=== PATIENT | female | born 1995 | race Caucasian/White ===

== ENCOUNTER 2025-02-21 10:17 | Emergency (ER) | payer BC, SELFPAY ==
[2025-02-21 10:18] VITALS: BP 118/81; PULSE 93; TEMP 37.3; O2SAT 98; BMI 22.0
--- NOTE | 2025-02-21 10:32 | ED.GENADUL1 ---
HPI HPI - General Adult General Chief complaint: Nausea/Vomiting/Diarrhea Stated complaint: VOMITTING DIZZINESS DEHYDRATION Time Seen by Provider: 02/21/25 10:20 Source: patient Mode of arrival: walk-in Limitations: no limitations History of Present Illness HPI narrative: 29-year-old female presents for nausea and vomiting. It began about 2:00 in the morning, about 8 hours ago. She had a little bit of diarrhea. [facility] before. No hematemesis or fever. She feels dehydrated. Related Data Previous Rx's ?Medication ?Instructions ?Recorded ondansetron 4 mg disintegrating 4 mg PO Q6H PRN nausea and 02/21/25 tablet vomiting #20 tabs Allergies Allergy/AdvReac Type Severity Reaction Status Date / Time No Known Drug Allergies Allergy Verified 02/21/25 10:24 Opioid HPI Opioid Management Most Recent Opioid Data: No Data to Display Review of Systems ROS Narrative A ten point review of systems is negative except as noted above. PFSH PFSH Social History Little interest or pleasure in doing things: not at all Feeling down, depressed, or hopeless: not at all Exam Narrative Exam Narrative: Nurses note and vital signs reviewed and patient is not hypoxic. General: The patient appears well and in no apparent distress. Patient is resting comfortably on cart. Skin: Warm, dry, mild pallor noted. There is no rash noted. Head: Normocephalic, atraumatic Eye: Normal conjunctiva, no drainage Ears, Nose, Mouth, and Throat: oral mucosa is moist. Nares patent. Cardiovascular: Regular Rate and Rhythm Respiratory: Patient is in no distress, no accessory muscle use, lungs are clear to auscultation, no wheezing, rales or rhonchi Back: non-tender GI: Soft and nontender Musculoskeletal: The patient has no evidence of calf tenderness, no pitting edema, symmetrical pulses noted bilaterally Neurological: A&O, normal speech Psychiatric: Cooperative Constitutional Vital Signs, click to edit/add: Last Vital Signs Temp 99.1 F 02/21/25 10:18 Pulse 93 H 02/21/25 10:18 Resp 18 02/21/25 10:18 BP 118/81 02/21/25 10:18 Pulse Ox 98 02/21/25 10:18 Course Vital Signs Vital signs: Vital Signs Temperature 99.1 F 02/21/25 10:18 Pulse Rate 93 H 02/21/25 10:18 Respiratory Rate 18 02/21/25 10:18 Blood Pressure 118/81 02/21/25 10:18 Pulse Oximetry 98 02/21/25 10:18 Temperature 99.1 F 02/21/25 10:18 Pulse Rate 93 H 02/21/25 10:18 Respiratory Rate 18 02/21/25 10:18 Blood Pressure 118/81 02/21/25 10:18 Pulse Oximetry 98 02/21/25 10:18 Medical Decision Making MDM Narrative Medical decision making narrative: The patient feels much better after being given IV fluids and Zofran and is tolerating p.o. liquids. She is discharged home with a prescription for Zofran. Treatment diagnosis and follow-up were discussed with the patient. Differential Diagnosis Differential Diagnosis: Dehydration, gastroenteritis, food Lab Data Lab results reviewed: Yes I reviewed the patient's lab results Labs: Lab Results 02/21/25 Range/Units 10:25 WBC 16.9 H (4.0-11.0) 10^3/uL RBC 4.91 (4.20-5.40) 10^6/uL Hgb 15.0 (12.0-16.0) g/dL Hct 44.6 (36.0-48.0) % MCV 90.8 (81.0-99.0) fL MCH 30.5 (26.7-34.0) pg MCHC 33.6 (29.9-35.2) g/dL RDW 12.3 (11.0-15.0) % Plt Count 312 (150-450) 10^3/uL MPV 8.7 L (9.5-13.5) fL Seg Neuts % (Manual) 86.0 H (43.0-75.0) Band Neutrophils % 5.0 (0-5) % Lymphocytes % (Manual) 5.0 L (20.5-60.0) % Monocytes % (Manual) 4.0 (1.7-12.0) % Eosinophils % (Manual) 0.0 L (0.9-7.0) % Basophils % (Manual) 0.0 L (0.2-2.0) % Neutrophils # (Manual) 14.53 H (1.4-6.5) 10^3/uL Band Neutrophils # 0.8 H (0.0-0.3) 10^3/uL Lymphocytes # (Manual) 0.84 L (1.20-3.80) 10^3/uL Monocytes # (Manual) 0.67 (0.30-0.80) 10^3/uL Eosinophils # (Manual) 0.00 (0.00-0.70) 10^3/uL Basophils # (Manual) 0.00 (0.00-0.10) 10^3/uL Sodium 138 (136-145) mmol/L Potassium 4.0 (3.5-5.1) mmol/L Chloride 101 (98-107) mmol/L Carbon Dioxide 25.2 (21.0-32.0) mmol/L Anion Gap 15.8 BUN 20.0 H (7.0-18.0) mg/dL Creatinine 1.29 H (0.55-1.02) mg/dL Est GFR ( Amer) 60 (>=60 mL/min/1.73m^2) Est GFR (Non-Af Amer) 50 L (>=60 mL/min/1.73m^2) BUN/Creatinine Ratio 15.5 Glucose 136 H (74-106) mg/dL Calcium 8.9 (8.5-10.1) mg/dL Serum HCG, Qual Negative (NEGATIVE) Discharge Plan Discharge Chief Complaint: Nausea/Vomiting/Diarrhea Clinical Impression: Nausea & vomiting Patient Disposition: Home, Self-Care Time of Disposition Decision: 11:50 Condition: Good Mode of Transportation: Private Vehicle Prescriptions / Home Meds: New ondansetron 4 mg tablet,disintegrating 4 mg PO Q6H PRN (Reason: nausea and vomiting) Qty: 20 0RF Print Language: Mongolian Instructions: Acute Nausea and Vomiting (ED) Referrals: KENN GOMEZ [Primary Care Provider] - 1 week
[2025-02-21] MEDS: ONDANSETRON PF 4 MG/2 ML VIAL IV (10:39)
[2025-02-21] MEDS: 0.9 % SODIUM CHLORIDE 1,000 ML 1000 ML IV (10:39)
[2025-02-21 10:48] LABS: Hematocrit 44.6 % (36.0-48.0); Mean Corpuscular HGB Conc 33.6 g/dL (29.9-35.2); Mean Corpuscular Hemoglobin 30.5 pg (26.7-34.0); Mean Corpuscular Volume 90.8 fL (81.0-99.0); Mean Platelet Volume 8.7 fL (9.5-13.5); Platelet Count 312 10^3/uL (150-450); Red Blood Count 4.91 10^6/uL (4.20-5.40); Red Cell Distribution Width 12.3 % (11.0-15.0); White Blood Count 16.9 10^3/uL (4.0-11.0)
[2025-02-21 11:00] LABS: Anion Gap 15.8; BUN Creatinine Ratio 15.5; Calcium 8.9 mg/dL (8.5-10.1); Carbon Dioxide 25.2 mmol/L (21.0-32.0); Chloride 101 mmol/L (98-107); Estimated GFR (African America 60 (>=60 mL/min/1.73m^2); Estimated GFR (Non-African Ame 50 (>=60 mL/min/1.73m^2); Glucose 136 mg/dL (74-106); Sodium 138 mmol/L (136-145)
[2025-02-21 11:01] LABS: HCG Qualitative NEGATIVE (NEGATIVE); Internal Control Within Normal Limits
[2025-02-21 11:06] LABS: Band Neutrophils Absolute 0.8 10^3/uL (0.0-0.3); Lymphocytes Absolute Manual 0.84 10^3/uL (1.20-3.80); Monocytes Absolute Manual 0.67 10^3/uL (0.30-0.80); Segmented Neut Absolute Manual 14.53 10^3/uL (1.4-6.5)
== END 2025-02-21 11:58 | disposition home or self-care (01) ==
PROVIDERS: Emergency Provider Emergency Medicine; PCP Family Medicine
DX: R11.2 Nausea with vomiting, unspecified (principal)
CPT/HCPCS: 36415; 80048; 84703; 85007; 85027; 96361; 96374; 99284; J2405

== ENCOUNTER 2025-07-07 09:16 | Outpatient (OUT) | payer BC, SELFPAY ==
--- OUTSIDE RECORDS SUMMARY | 2021-03-29 07:00 | XMS_ITS | Continuity of Care Document ---
Author Organization [facility] Address [address] [place] [address] Phone Care Team Providers Care Elevator Attendant Name Role Phone Jun Moreno Unavailable Unavailable Procedures Procedure Date TB Read TB INTRADERMAL TEST Advance Directives Directive Yes / No Effective Date File Name No Information Encounters Encounter Description Practice Location Reason(s) For Visit Diagnoses Date Provider Providers Copied on Encounter [facility], [address] [place] [address], [id number], tel:[phone] [facility] No Information Maria Luisa Byrnes. [address], [place], [id number], [place]. tel:[phone] [facility], [address], [place], [id number], [place] tel:[phone] [facility] Encounter for screening for respiratory tuberculosis Maria Luisa Byrnes. [address], [place], [id number], [place]. tel:[phone] Family History Family Member Type Diagnosis Age At Onset No Information Payers Payer name Insurance type Covered democrat ID Authoriza tion(s) No Information Social History Type Description Quantity Date Captured Comments Alcohol Use Details Unknown Caffeine Use Details Unknown Tobacco Use Status No Information Smoking Status No Information Sex Female Sexual Orientation Straight or heterosexual Gender Identity Female Chief Complaint And Reason For Visit No Information Reason For Referral Reason For Referral No Information History Of Present Illness Encounter Date Complaint History Of Prese nt Illness No Information Functional Status Date Functional Assessmen t No Information Instructions Date Instruction Additional Infor mation No Information Assessments Type Assessment Date No Information Patient Care Teams Name Effective Dates (start - stop) Status Members No Information
--- OUTSIDE RECORDS SUMMARY | 2025-06-29 14:45 | XMS_ITS | Encounter Summary ---
Author Organization [facility] Address [address] [facility] [place] [address] Care Team Providers Care Physician/Ophthalmologist Name Role Phone Payal, Omar Andrews DO Primary Care Provider [phone] Bernice Interiano REFRIGERATING TECHNICIAN Unavailable [phone] Reason for Visit * Reason Comments Gynecologic Exam Pt had egg retrieval May 16. Denies concerns. Denies bowel/bladder/breast concerns. LMP 05/26/25 menses irregular, usually 34 days apart. Encounter Details Date Type Department Care Team (Late st Contact Info) Description 06/29/2025 2:45 PM EDT Office Visit NASEEMEdgardo CastroLisonya FLANNERY [address] [facility] [address] [place] [phone] Lisset Domingo DO [address] [facility] [address] [place] [address] Encounter for gynecological examination without abnormal finding; Screening for malignant neoplasm of cervix Social History Tobacco Use Types Packs/Day Years Used Date Smoking Tobacco: Never Passive Smoke Exposure: Never Smokeless Tobacco: Never Alcohol Use Standard Drinks/Week Comments Never 0 (1 standard drink = 0.6 oz pure alcohol) Caffeine intake: occasional chocolate , soda Humiliation, Afraid, Rape, and Kick questionnair e Answer Date Recorded Within the last year, have y ou been afraid of your partner or ex-partner? No 12/01/2023 Within the last year, have y ou been humiliated or emotionally abused in other ways by your partner or ex-partner? No Within the last year, have y ou been kicked, hit, slapped, or otherwise physically hurt by your partner or ex-partner? No 12/01/2023 Within the last year, have y ou been raped or forced to have any kind of sexual activity by your partner or ex-partner? No 12/01/2023 Social Connection and Isolat ion Panel [NHANES] Answer Date Recorded In a typical week, how many times do you talk on the phone with family, friends, or neighbors? More than three times a week 12/01/2023 How often do you get togethe r with friends or relatives? Once a week 12/01/2023 How often do you attend chur ch or holiness services? More than 4 times per year 12/01/2023 Do you belong to any clubs o r organizations such as anabaptist groups, unions, fraternal or athletic groups, or school groups? Yes 12/01/2023 How often do you attend meet ings of the clubs or organizations you belong to? More than 4 times per year 12/01/2023 Are you , , di vorced, , never , or living with a partner? 12/01/2023 AUDIT-C Answer Date Recorded Q1: How often do you have a drink containing alc ohol? Monthly or less 12/01/2023 Q2: How many drinks containi ng alcohol do you have on a typical day when you are drinking? 1 or 2 12/01/2023 Q3: How often do you have si x or more drinks on one occasion? Never 12/01/2023 Overall Financial Resource Strain (CARDIA) Answe r Date Recorded How hard is it for you to pa y for the very basics like food, housing, medical care, and heating? Not very hard 12/01/2023 [facility] - Occupational Stress Questionnaire Answer Date Recorded Do you feel stress - tense, restless, nervous, or anxious, or unable to sleep at night because your mind is troubled all the time - these days? Only a little 12/01/2023 Exercise Vital Sign Answer Date Recorde d On average, how many days pe r week do you engage in moderate to strenuous exercise (like a brisk walk)? 3 days 12/01/2023 On average, how many minutes do you engage in exercise at this level? 60 min 12/01/2023 Hunger Vital Sign Answer Date Recorded Within the past 12 months, y ou worried that your food would run out before you got the money to buy more. Never true 12/01/19 24 Within the past 12 months, t he food you bought just didn't last and you didn't have money to get more. Never true 12/01/2023 PRAPARE - Transportation Answer Date Re corded In the past 12 months, has l ack of transportation kept you from medical appointments or from getting medications? No 06/2024 In the past 12 months, has l ack of transportation kept you from meetings, work, or from getting things needed for daily living? No 12/01/2023 Housing Stability Vital Sign Answer Roscoe e Recorded In the last 12 months, was t here a time when you were not able to pay the mortgage or rent on time? No 12/01/2023 In the last 12 months, how many places have you lived? 1 12/01/2023 In the last 12 months, was t here a time when you did not have a steady place to sleep or slept in a custodial (including now)? No 12/01/2023 Comments No Sex and Gender Information Value Date Recorded Sex Assigned at Not on file Legal Sex Female 6:52 PM EDT Gender Identity Female 02/05/2023 6:52 PM EDT Sexual Orientation Not on file documented as of this encounter Last Filed Vital Signs Vital Sign Reading Time Taken Comments Blood Pressure 136/80 06/29/2025 2:49 PM EDT Pulse - - Temperature - - Respiratory Rate - - Oxygen Saturation - - Inhaled Oxygen Concentration - - Weight 63.5 kg (140 lb) 06/29/2025 2:49 PM EDT Height - - Body Mass Index 23.3 12/02/2023 9:58 AM EST documented in this encounter Progress Notes * Lisset Domingo DO - 06/29/2025 2:45 PM EDT Images from the original note were not included. Lisset Domingo D.O. Obstetrics and Gynecology Patient: Susan Boothe : 1995 (29 y.o.) Yearly Wellness Exam Date: 06/29/2025 Reason for Visit - Chief Complaint Patient presents with Gynecologic Exam Pt had egg retrieval May 16. Denies concerns. Denies bowel/bladder/breast concerns. LMP 05/26/25 menses irregular, usually 34 days apart. Visit Vitals BP 136/80 Wt 140 lb LMP 05/26/2025 BMI 23.30 kg/m?? OB Status Having periods Smoking Status Never BSA 1.71 m?? No Known Allergies History of Present Illness, Associated Treatments and Results - OB History Para Term AB Living 0 0 0 0 0 0 SAB IAB Ectopic Multiple Live Births 0 0 0 0 0 Obstetric Comments Pap smear 12/10/22 wnl Review of Systems - General: Chills denies. Allergy/Immunology: Rash Denies. ENT: Denies Difficulty swallowing. Endocrine: Denies Cold intolerance denies. Heat intolerance denied. Respiratory: Denies Chest pain denies. Shortness of breath denies. Breast: Denies Bloody nipple discharge denies. Breast lump denies. Cardiovascular: Denies Chest pain. Gastrointestinal: Abdominal pain denies. Blood in stool denies. Hematology: Easy bruising denies. Prolonged bleeding denies. Women Only: Breast lump denies. Vaginal bleeding between periods is denied. Vaginal discharge/itching denied. Genitourinary: Blood in urine denies. Painful urination denies. Incontinence denies. Skin: Hair changes. Neurologic: Seizures denied. Stroke denies. Psychiatric: Anxiety denies. Depressed mood denies. Medication Documentation Review Audit Reviewed by Staci Darnell MA (Buildings And Grounds Superintendent) on 06/29/25 at 1448 Medication Order Taking? Sig Documenting Provider Last Dose Status Vit w/Kv-Pbtrbmxsc-VM (PNV PO) [id number] Yes Take by mouth Lisset Domingo DO Active Past Medical History: Diagnosis Date Hormone disorder 01/01/2023 Neck mass Neck mass Ovarian cyst 01/01/2023 Polycystic ovary syndrome 01/01/2023 Past Surgical History: Procedure Laterality Date LASIK 11/07/2021 LASIK 11/07/2021 NECK MASS EXCISION 2014 NECK SURGERY 2014 excision submental mass Family History Problem Relation Name Age of Onset Diabetes Mother Jeannette Asthma Mother Jeannette Hypertension Father Tom No Known Problems Sister No Known Problems Brother Diabetes Mother's Sister Breast cancer Father's Sister Maris Cancer Mother's Brother Hickman Cancer Father's Sister Sharmila Diabetes Mother's Brother Armaan Melanoma Neg Hx Physical Exam - General appearance, mentation, extraocular movements, facial strength and movement, hearing, upper and lower extremity strength and tone, sensation to gross testing, coordination, and gait are normalor at baseline unless noted below. General Examination: GENERAL APPEARANCE: alert oriented well developed, well nourished. HEAD: normocephalic atraumatic. EYES: sclera anicteric. EARS: no obvious hearing deficit. SKIN: warm and dry. HEART: regular rate and rhythm. LUNGS: clear to auscultation bilaterally. CHEST: axillary nodes grossly normal. BREASTS: no masses palpable bilaterally, normal nipples bilaterally. ABDOMEN: soft, nontender, nondistended, no masses palpable. BACK: no costovertebral angle tenderness, no obvious scoliosis/kyphosis. FEMALE GENITOURINARY: normal vaginal mucosa, cervix absent of lesions, nontender, uterus AV, mobile, ovaries nonpalpable and nontender. EXTREMITIES: no edema. NEUROLOGIC: alert and oriented. PSYCH: cooperative with exam. Diagnoses and all orders for this visit: Encounter for gynecological examination without abnormal finding Screening for malignant neoplasm of cervix - IGP, RFX APTIMA HPV ASCU Pap, pelvic and breast exam completed. Findings of today's exam discussed with the patient. Continue MSBE. Ca/Vit D recommendations reviewed with the patient. The patient is to contact the office with any changes to her gynecological condition. The patient is to return in 1 year or as needed ICD-10-CM 1. Encounter for gynecological examination without abnormal finding Z01.419 2. Screening for malignant neoplasm of cervix Z12.4 IGP, RFX APTIMA HPV ASCU documented in this encounter Plan of Treatment Upcoming Encounters Date Type Department Care Team (Late st Contact Info) Description 07/25/2026 10:30 AM EDT Office Visit ELAN FLANNERY [address] [place] [phone] Lisset Domingo DO [address] [place] [address] documented as of this encounter Procedures Procedure Name Priority Date/Time Associated Diagnosis Comments IGP, RFX APTIMA HPV ASCU Routine 06/29/2025 12:00 AM EDT Screening for malignant neoplasm of cervix documented in this encounter Results * IGP, RFX APTIMA HPV ASCU (06/29/2025 12:00 AM EDT) Diagnosis: Comment [facility] Comment:NEGATIVE FOR INTRAEP ITHELIAL LESION OR MALIGNANCY. Specimen Adequacy: Comment [facility] Comment: Satisfactory for evaluation. Endocervical and/or squamous metaplastic cells (endocervical component) are present. Clinician Provided ICD10: Comment [facility] Comment:Z12.4 Performed By: Comment [facility] Comment:Michael Jain, Work And Family Life Consultant ([facility]) Cyto Comments . [facility] Note: Comment [facility] Comment: The Pap smear is a screening test designed to aid in the detection of premalignant and malignant conditions of the uterine cervix. It is not a diagnostic procedure and should not be used as the sole means of detecting cervical cancer. Both false-positive and false-negative reports do occur. Test Methodology: Comment [facility] Comment: This liquid based ThinPrep(R) pap test was screened with the use of an image guided system. . Comment [facility] Comment: The HPV DNA reflex criteria were not met with this specimen result therefore, no HPV testing was performed. 06/29/2025 06/30/2025 Narrative [facility] - 07/01/2025 1:07 PM EDT Performed at: 01 - [address] [id number] Tap Puller: Sepideh Varela MD, Phone: [phone] Specimen Comment: [id number] Specimen Comment: No. of containers..01 ThinPrep Vial Lisset Domingo DO LAB BLOOD ORDERABLES Final Result [facility] documented in this encounter Visit Diagnoses Diagnosis Encounter for gynecological examination without abnormal finding Screening for malignant neoplasm of cervix Screening for malignant neoplasm of the cervix documented in this encounter Care Teams Physician/Ophthalmologist Relationship Specialty Start Date End Date Omar Moe DO [address] [place] [address] PCP - General Family Medicine 04/01/23 Bernice Interiano NP [address] [place] [address] PCP - [place] [employer] 02/22/25 documented as of this encounter
--- OUTSIDE RECORDS SUMMARY | 2025-07-07 09:21 | XMS_ITS | Clinical Summary ---
Author Organization [facility] Address [address] [place] [address] Care Team Providers Care Weight Analyst Name Role Phone PayalOmar antunez Darryl PETERSON Primary Care Provider [phone] Bernice Interiano COATER HELPER Unavailable [phone] Allergies No known active allergies Medications Vit w/Jk-Ecjcdmzqu-I A (PNV PO) Take by mouth Active Encounters Date Type Department Care Team Description 06/29/2025 2:45 PM EDT Office Visit NOMEdgardo FLANNERY [address] [place] [phone] Lisset Domingo DO Encounter for gynecological examination without abnormal finding; Screening for malignant neoplasm of cervix 06/29/2025 Bamboo flowsheet NOMEdgardo AVILAN [address] [place] [phone] Lisset Domingo DO 06/29/2025 Travel from Last 3 Months Family History Medical History Relation Name Comments No Known Problems Brother Hypertension Father Tom Breast cancer Father's Sister 1 Maris Cancer Father's Sister 2 Sharmila Asthma Mother Jeannette Diabetes Mother Jeannette Cancer Mother's Brother 1 Hickman Diabetes Mother's Brother 2 Armaan Diabetes Mother's Sister No Known Problems Sister Melanoma Neg Hx Relation Name Status Comments Brother 1 brother Father Tom Alive Father's Sister 1 Maris Father's Sister 2 Sharmila Mother Jeannette Alive Mother's Brother 1 Hickman Mother's Brother 2 Armaan Mother's Sister Sister 1 sister Social History Tobacco Use Types Packs/Day Years Used Date Smoking Tobacco: Never Passive Smoke Exposure: Never Smokeless Tobacco: Never Tobacco Cessation:Counseling Given: Yes Alcohol Use Standard Drinks/Week Comments Never 0 [...] week 12/01/2023 How often do you attend [facility] or mandaen services? More than 4 times per year 12/01/2023 Do you belong to any clubs o r organizations such as religion groups, unions, fraternal or athletic groups, or [...] care, and heating? Not very hard 12/01/2023 [facility] - Occupational Stress Questionnaire Answer Date [...] place to sleep or slept in a residential (including now)? No 12/01/2023 Comments No Sex and Gender Information Value Date Recorded Sex Assigned at Not on file Legal Sex Female 6:52 PM EDT Gender Identity Female 02/05/2023 6:52 PM EDT Sexual Orientation Not on file Last Filed Vital Signs Vital Sign Reading Time Taken Comments Blood Pressure 136/80 06/29/2025 2:49 PM EDT Pulse 78 11/26/2024 10:15 AM EST Temperature 36.9 C (98.4 F) 11/26/2024 10:15 AM EST Respiratory Rate - - Oxygen Saturation 99% 11/26/2024 10:15 AM EST Inhaled Oxygen Concentration - - Weight 63.5 kg (140 lb) 06/29/2025 2:49 PM EDT Height 165.1 cm (5' 5 ) 12/02/2023 9:58 AM EST Body Mass Index 23.3 12/02/2023 9:58 AM EST Plan of Treatment Upcoming Encounters Date Type Department Care Team (Late st Contact Info) Description 07/25/2026 10:30 AM EDT Office Visit ELAN FLANNERY [address] [place] [address] Lisset Domingo DO [address] [place] [address] Health Maintenance Due Date Last Done Comments Influenza Vaccine (#1) 2025 4, 08/12/2023, 08/16/2022, Additional history exists Procedures Procedure Name Priority Date/Time Associated Diagnosis Comments IGP, RFX APTIMA HPV ASCU Routine 06/29/2025 12:00 AM EDT Screening for malignant neoplasm of cervix from Last 3 Months Results * IGP, RFX APTIMA HPV ASCU (06/29/2025 12:00 AM EDT) Diagnosis: Comment [facility] Comment:NEGATIVE FOR INTRAEP ITHELIAL LESION OR MALIGNANCY. Specimen Adequacy: Comment [facility] Comment: Satisfactory for evaluation. Endocervical and/or squamous metaplastic cells (endocervical component) are present. Clinician Provided ICD10: Comment [facility] Comment:Z12.4 Performed By: Comment [facility] Comment:Michael Jain, Chain Mender ([facility]) Cyto Comments . [facility] Note: Comment [...] - 07/01/2025 1:07 PM EDT Performed at: - [facility] [address] [place] [id number] Message And Delivery Service Pricer: Sepideh Varela MD, Phone: [phone] Specimen Comment: [id number] Specimen Comment: No. of containers..01 ThinPrep Vial Lisset Domingo DO LAB BLOOD ORDERABLES Final Result [facility] from Last 3 Months Insurance BC[employer] Care Teams Weight Analyst Relationship Specialty Start Date End Date Omar Moe DO [address] [place] [address] PCP - General Family Medicine 04/01/23 Bernice Interiano NP [address] [place] [address] PCP - [place] [employer] 02/22/25
--- OUTSIDE RECORDS SUMMARY | 2025-07-07 09:21 | XMS_ITS | Encounter Summary ---
Author Organization [facility] Address [address] [place] [address] Care Team Providers Care Media/Instructional Designer Name Role Phone Omar Moe DO Primary Care Provider [phone] Bernice Interiano ELECTROMECHANISMS DESIGN DRAFTER Unavailable [phone] Encounter Details Date Type Department Care Team (Late st Contact Info) Description 02/21/2025 Abstract [facility] [address] [place] [address] Omar Moe DO [address] [place] [address] Social History Tobacco Use Types Packs/Day Years [...] often do you attend chur ch or jewish services? More than 4 times per year 12/01/2023 Do you belong to any clubs o r organizations such as denominational groups, unions, fraternal or athletic groups, or [...] care, and heating? Not very hard 12/01/2023 [facility] - Occupational Stress [...] place to sleep or slept in a jail (including now)? No 12/01/2023 Comments No Sex and Gender Information Value Date Recorded Sex Assigned at Not on file Legal Sex Female 6:52 PM EDT Gender Identity Female 02/05/2023 6:52 PM EDT Sexual Orientation Not on file documented as of this encounter Plan of Treatment Upcoming Encounters Date Type Department Care Team (Late st Contact Info) Description 07/25/2026 10:30 AM EDT Office Visit [facility] [address] [place] [address] Lisset Domingo DO [address] [place] [address] documented as of this encounter Visit Diagnoses Not on filedocumented in this encounter Care Teams Media/Instructional Designer Relationship Specialty Start Date End Date Omar Moe DO [address] [place] [id number] PCP - General Family Medicine 04/01/23 Bernice Interiano NP [address] [place] [id number] PCP - [place] [employer] 02/22/25 documented as of this encounter
--- OUTSIDE RECORDS SUMMARY | 2025-07-07 09:21 | XMS_ITS | Encounter Summary ---
Author Organization [facility] Address [address] [facility] [place] [address] Care Team Providers Care Medical Office Administrator Name Role Phone Omar Moe Primary Care Provider [phone] Bernice Interiano ORACLE DATABASE ARCHITECT Unavailable [phone] Encounter Details Date Type Department Care Team (Late st Contact Info) Description 05/01/2023 [facility] [address] [facility] [address] [place] [address] Naseem Gomez MD [address] [facility] [address] [place] [address] Social History Tobacco Use Types Packs/Day Years Used Date Smoking Tobacco: Never Smokeless Tobacco: Never Alcohol Use Standard Drinks/Week Comments Never 0 (1 standard drink = 0.6 oz pure alcohol) Caffeine intake: occasional chocolate , soda Comments Unknown Sex and Gender Information Value Date Recorded [...] [facility] [address] [place] [address] Lisset Domingo DO [address] [place] [address] documented as of this encounter Visit Diagnoses Not on filedocumented in this encounter Care Teams Medical Office Administrator Relationship Specialty Start Date End Date Omar Moe DO [address] [place] [address] PCP - General Family Medicine 04/01/23 Bernice Interiano NP [address] [place] [address] PCP - Madhavi Crum 02/22/25 documented as of this encounter
--- OUTSIDE RECORDS SUMMARY | 2025-07-07 09:21 | XMS_ITS | Encounter Summary ---
Author Organization [facility] Address [address] [place] [address] Care Team Providers Care Hydroelectric Plant Mechanical Engineer Name Role Phone Omar Moe DO Primary Care Provider [phone] Bernice Interiano GASOLINE PUMP MECHANIC Unavailable [phone] Encounter Details Date Type Department Care Team (Latest Contact Info) Description 06/29/2025 Travel Social History Tobacco Use Types Packs/Day Years [...] week 12/01/2023 How often do you attend [facility] or taoist services? More than 4 times per year 12/01/2023 Do you belong to any clubs o r organizations such as tenriism groups, unions, fraternal or athletic groups, or [...] care, and heating? Not very hard 12/01/2023 [facility] - [...] [facility] [address] [place] [address] Lisset Domingo DO [address] [place] [address] documented as of this encounter Visit Diagnoses Not on filedocumented in this encounter Care Teams Hydroelectric Plant Mechanical Engineer Relationship Specialty Start Date End Date Omar Moe DO [address] [place] [address] PCP - General Family Medicine 04/01/23 Bernice Interiano NP [address] [place] [address] PCP - Madhavi Commercial 02/22/25 documented as of this encounter
--- OUTSIDE RECORDS SUMMARY | 2025-07-07 09:21 | XMS_ITS | Clinical Summary ---
Author Organization [facility] Address [address] [place] [address], [address] [place] [address] Care Team Providers Care Tool And Equipment Rental Clerk Name Role Phone Unavailable Primary Care Provider Unavailabl e Social History Tobacco Use Types Packs/Day Years Used Date Smoking Tobacco: Never Assessed Comments Unknown Sex and Gender Information Value Date Recorded Sex Assigned at Not on file Legal Sex Female 12:47 PM EDT Gender Identity Not on file Sexual Orientation Not on file Plan of Treatment Health Maintenance Due Date Last Done Comments DTaP/Tdap/Td vaccine (1 - Tdap) 2016 COVID-19 Vaccine (2023-2 5 season) 2024 Flu vaccine (#1) 06/24/2025 Polio vaccine Aged Out No longer elig ible based on patient's age to complete this topic
--- OUTSIDE RECORDS SUMMARY | 2025-07-07 09:21 | XMS_ITS | Encounter Summary ---
Author Organization [facility] Address [address] [facility] [place] [address] Care Team Providers Care Deputy Director Of Finance Name Role Phone Omar Moe DO Primary Care Provider [phone] Bernice Interiano NP Unavailable [phone] Encounter Details Date Type Department Care Team (Late st Contact Info) Description 12/26/2023 External Result Encounter [facility] External Department Unsolicited Naseem Gomez MD [address] [place] [address] Social History Tobacco Use Types Packs/Day Years [...] often do you attend chur ch or tenriism services? More than 4 times per year 12/01/2023 Do you belong to any clubs o r organizations such as buddhist groups, unions, fraternal or athletic groups, or [...] care, and heating? Not very hard 12/01/2023 [facility] - Occupational [...] place to sleep or slept in a fci (including now)? No 12/01/2023 Comments No Sex [...] [facility] [address] [place] [address] Lisset Domingo DO [address] [place] [address] documented as of this encounter Procedures Procedure Name Priority Date/Time Associated Diagnosis Comments XR HYSTEROSALPINGOGRAM 1:14 PM EST documented in this encounter Results * XR hysterosalpingogram (12/26/2023 1:14 PM EST) Anatomical Region Laterality Modality Uterus Radiographic Sumaya ging 12/26/2023 1:14 PM EST Narrative 12/26/2023 1:19 PM EST [facility] [place] [address] [place] [id number] Fluoroscopy Report Signed Patient: Susan Boothe MR#: [id number] 3 : 1995 Acct:[id number] Age/Sex: 28 / F ADM Date: 12/26/23 Loc: XD Room: Type: [facility] Attending Dr: Naseem Gomez MD Copies to: YANIV Pollard Ordering Provider: AYNIV Pollard Date of Service: 12/26/23 FL/FL hysterosalpingography: ANOVULATION, IRREGULAR MENSES Hysterosalpingogram. Reason for exam: Evaluate for tubal patency. Findings: 4 images were obtained intraoperatively. Examination was performed by the ESCROW AGENT service. No radiologist was present for procedure. Normal contour of the uterus. No definite pooling of contrast is seen within the peritoneum to suggest spillage. Cumulative Air Kerma in mGy: 11.238 mGy FL/FL hysterosalpingography Impression: HSG performed by the ESCROW AGENT service. Impression dictated by: Morgan Delgado Jr., D.[facility]12/26/2023 1:16 PM Dictation Location: [place] [address] Transcribed By: [facility] 12/26/23 1316 Dictated By: Morgan Delgado Jr, DO 12/26/23 1314 Signed By: <Electronically signed by Morgan Delgado Jr, DO in OV> 12/26/23 1316 Procedure Note Radiology, Radiologist, - 12/30/2023 [facility] [place] [address] [place] [address] Fluoroscopy Report Signed Patient: Susan Boothe LMR#: [id number] 3 : 1995Acct:[id number] Age/Sex: 28 / FADM Date: 12/26/23 Loc: XD Room:Type: [facility] Attending Dr: Naseem Gomez MD Copies to: YANIV Pollard Ordering Provider: YANIV Pollard Date of Service: 12/26/23 FL/FL hysterosalpingography: ANOVULATION,IRREGULAR MENSES Hysterosalpingogram. Reason for exam: Evaluate for tubal patency. Findings: 4 images were obtained intraoperatively. Examination was performed by theOB/PASSENGER SERVICE MANAGER service. No radiologist was present for procedure. Normal contour of the uterus. Nodefinite pooling of contrast is seen within the peritoneum to suggest spillage. Cumulative Air Kerma in mGy: 11.238 mGy FL/FL hysterosalpingography Impression: HSG performed by the ESCROW AGENT service. Impression dictated by: Morgan Delgado Jr., D.O.12/26/2023 1:16 PM Dictation Location: [place] [address] Transcribed By: [facility] 12/26/23 1316 Dictated By: Morgan Delgado Jr, DO 12/26/23 1314 Signed By: <Electronically signed by Morgan Delgado Jr, DO inOV> 12/26/23 1316 us Naseem Gomez MD IMG XR PROCEDURES Edited Resul t - Final documented in this encounter Visit Diagnoses Not on filedocumented in this encounter Care Teams Deputy Director Of Finance Relationship Specialty Start Date End Date Omar Moe DO [address] [place] [address] PCP - General Family Medicine 04/01/23 Bernice Interiano NP [address] [place] [address] PCP - Madhavi Crum 02/22/25 documented as of this encounter
--- OUTSIDE RECORDS SUMMARY | 2025-07-07 09:21 | XMS_ITS | Encounter Summary ---
Author Organization [facility] Address [address] [place] [address] Care Team Providers Care Slinger Sequins Name Role Phone Payal Omar Andrews DO Primary Care Provider [phone] Bernice Interiano PAPER CONSERVATOR Unavailable [phone] Encounter Details Date Type Department Care Team (Late st Contact Info) Description 06/29/2025 Bamboo flowsheet [facility] [place] [facility] [address] [place] [address] Lisset Domingo DO [address] [place] [address] Social History Tobacco Use Types Packs/Day Years [...] any clubs o r organizations such as latter-day groups, unions, fraternal or athletic groups, or [...] care, and heating? Not very hard 12/01/2023 [facility] - Occupational [...] place to sleep or slept in a usp (including now)? No 12/01/2023 Comments No Sex [...] 07/25/2026 10:30 AM EDT Office Visit [facility] [place] [facility] [address] [place] [address] Lisset Domingo DO [address] [place] [address] documented as of this encounter Visit Diagnoses Not on filedocumented in this encounter Care Teams Slinger Sequins Relationship Specialty Start Date End Date Omar Moe DO [address] [place] [id number] PCP - General Family Medicine 04/01/23 Bernice Interiano NP [address] [place] [id number] PCP - Madhavi Commercial 02/22/25 documented as of this encounter
--- OUTSIDE RECORDS SUMMARY | 2025-07-07 09:23 | XMS_ITS | CCD ---
Author Organization [facility] Care Team Providers Care Agents' Records Clerk Name Role Phone Unavailable Primary Care Provider UnavailEVIN Haddad Referring Unavailable LILIAN SHELL Referring Unavailable MONALISA LOVE Referring Unavailable DO Omar Moe Primary Care Provider [phone] MD Naseem Gomez Attending Provider Naseem Gomez Admitting Unavailable Naseem Gomez Attending Unavailable Omar Moe Primary Care Unavailable Omar Moe DO Primary Care Provider [phone] Zenaida Interiano NP Unavailable LISSET DOMINGO Attending Unavailable ZENAIDA INTERIANO Attending Unavailable Medications Current Medications Medication Drug Class(es) Dates Sig (Normalized) Sig (Original) nitrofurantoin, macrocrystals 25 mg / nitrofurantoin, monohydrate 75 mg oral capsule (2 sources) Nitrofuran Antibacterial Start: 11-26-2024 End: 12-03-2024 take 1 capsule by mouth once nitrofurantoin, macrocrystal-mon ohydrate, (Macrobid) 100 MG capsule Indications: Acute cystitis without hematuria Take 1 capsule (100 mg) by mouth every 12 (twelve) hours for 7 days 14 capsule 11/26/2024 12/03/2024 Active Vit w/Hv-Nnulujlut-CF (PNV PO) (2 sources) Vit w/Vf-Mktkfrfnk-E A (PNV PO) Take by mouth Active Problems Active Problems Problem Classification Problem Date Documented Da te Episodic/Chronic Female infertility (1 source) Female infertility associated with anovulation; Translations: [Female infertility associated with anovulation] Onset: 12-26-2023 Chronic Other screening for suspected conditions (not mental disorders or infectious disease) (2 sources) Cancer cervix screening status; Translations: [Encounter for screening for malignant neoplasm of cervix] 06-23-2025 Episodic Urinary tract infections (2 sources) Acute cystitis; Translations: [Acute cystitis without hematuria] 11-26-2024 Episodic Past or Other Problems Problem Classification Problem Date Documented Da te Episodic/Chronic Administrative/social admission (2 sources) Encounter for pre-employment examination; Translations: [Encounter for pre-employment examination] Onset: 10-28-2022 Episodic Results Test Name Value Interpretation Reference Range Facility No Panel Informationon 11-27 ACINETOBACTER BAUMANII 0 [facility] ACINETOBACTER BAUMANII Not detected [facility] CRYSTAL ALBICANS, PARAPSILOSIS, TROPICALIS 0 [facility] CRYSTAL ALBICANS, PARAPSILOSIS, TROPICALIS Not detected [facility] CRYSTAL GLABRATA 0 [facility] CRYSTAL GLABRATA Not detected [facility] CRYSTAL KRUSEI 0 [facility] CRYSTAL KRUSEI Not detected [facility] CITROBACTER FREUNDII 0 [facility] CITROBACTER FREUNDII Not detected [facility] ENTEROBACTER AEROGENES, CLOACAE 0 [facility] ENTEROBACTER AEROGENES, CLOACAE Not detected [facility] ENTEROCOCCUS FAECALIS, FAECIUM 0 [facility] ENTEROCOCCUS FAECALIS, FAECIUM Not detected [facility] ESCHERICHIA COLI 0 [facility] ESCHERICHIA COLI Not detected [facility] KLEBSIELLA PNEUMONIAE, OXYTOCA 0 [facility] KLEBSIELLA PNEUMONIAE, OXYTOCA Not detected [facility] MORGANELLA MORGANII 0 [facility] MORGANELLA MORGANII Not detected [facility] PROTEUS MIRABILIS, VULGARIS 0 [facility] PROTEUS MIRABILIS, VULGARIS Not detected [facility] PSEUDOMONAS AERUGINOSA 0 [facility] PSEUDOMONAS AERUGINOSA Not detected [facility] SERRATIA MARCESCENS 0 [facility] SERRATIA MARCESCENS Not detected [facility] STAPHYLOCOCCUS AUREUS 0 [facility] STAPHYLOCOCCUS AUREUS Not detected [facility] STAPHYLOCOCCUS EPIDERMIDIS, HAEMOLYTICUS, LUGDUNENSIS, SAPROPHYTICUS (URINA 0 [facility] STAPHYLOCOCCUS EPIDERMIDIS, HAEMOLYTICUS, LUGDUNENSIS, SAPROPHYTICUS (URINA Not detected [facility] STREPTOCOCCUS AGALACTIAE (GROUP B STREP) 0 [facility] STREPTOCOCCUS AGALACTIAE (GROUP B STREP) Not detected [facility] STREPTOCOCCUS PYOGENES (GROUP A STREP) 0 [facility] STREPTOCOCCUS PYOGENES (GROUP A STREP) Not detected [facility] [place] hysterosalpingographyon 0 12-26-2023 [place] hysterosalpingography [facility] [place] [address] Fluoroscopy Report Signed Patient: Susan Boothe MR#: [id number] 3 : 1995 Acct:[id number] Age/Sex: 28 / F ADM Date: 12/26/23 Loc: XD Room: Type: [facility] Attending Dr: Naseem Gomez MD Copies to: Naseem Gomez MD-[facility] Ordering Provider: YANIV Pollard Date of Service: 12/26/23 [place] hysterosalpingography: ANOVULATION, IRREGULAR MENSES Hysterosalpingogram. Reason for exam: Evaluate for tubal patency. Findings: 4 images were obtained intraoperatively. Examination was performed by the RADIOSONDE SPECIALIST service. No radiologist was present for procedure. Normal contour of the uterus. No definite pooling of contrast is seen within the peritoneum to suggest spillage. Cumulative Air Kerma in mGy: 11.238 mGy [place] hysterosalpingography Impression: HSG performed by the RADIOSONDE SPECIALIST service. Impression dictated by: Morgan Delgado Jr., MichaelOMeagan12/26/2023 1:16 PM Dictation Location: [place] [address] Transcribed By: [facility] 12/26/23 1316 Dictated By: Morgan Delgado Jr, DO 12/26/23 1314 Signed By: 12/26/23 1316 Normal [facility] Hep B Surf Abon 01-25-2023 Hep B Surf Ab 500.90 mIU/mL High <10 [facility] Comment on above: Result Comment: REFERENCE RANGE: <10.0 NON-REACTIVE/NOT IMMUNE >=10.0 REACTIVE/IMMUNE The presence of Anti-HBs usually indicates recovery from acute or chronic HBV infection or acquired immunity from HBV vaccination. Positive results (quantitative levels of equal to or greater than 10.0 mIU/mL) indicate an adequate immunity from previous infection, vaccination or immune globulin adminstration. Anti-HBc would help define positivity due to Hepatitis B infection. Performed By: #### A HBS #### [address] [address] Wet Machine Tender: Kvng Casanova MD Hep B Surf Abon 11-20-2022 Hep B Surf Ab <3.50 Normal <10 [facility] Comment on above: Result Comment: REFERENCE RANGE: <10.0 NON-REACTIVE/NOT IMMUNE >=10.0 REACTIVE/IMMUNE Performed By: #### A HBS #### [address] [place] [address] Wet Machine Tender: Kvng Casanova MD Hepatitis B Surface Antibody on 11-19-2022 HBV surface Ab (S) [Titer] <3.50 NINF [facility] Comment on above: REFERENCE RANGE: <10.0 NON-REACTIVE/NOT IMMUNE >=10.0 REACTIVE/IMMUNE [facility] VZ Immunityon 10-30-2022 VZ Immunity 2.64 Normal >1.09 [facility] Comment on above: Result Comment: Interpretation: IMMUNE Reference Range: <0.91 Not Immune 0.91-1.09 Equivocal >1.09 Immune Performed By: #### V ZI #### [facility] [place] [address] Wet Machine Tender: Kvng Casanova MD Vital Signs Date Time Vital Sign Value Performing Clinician Lázaro barton 06-29-2025 14:49-0400 Body mass index (BMI) [Ratio] 23.3 kg/m2 LissetMD Insider DO Work Phone: [facility] 06-29-2025 14:49-0400 Body weight 63.5 kg LissetMD Insider DO Work Phone: [facility] 06-29-2025 14:49-0400 Diastolic blood pressure 80 mm[Hg] Lisset Rinkes DO Work Phone: [facility] 06-29-2025 14:49-0400 Systolic blood pressure 136 mm[Hg] Lisset Rinkes DO Work Phone: [facility] 11-26-2024 10:15-0500 Body mass index (BMI) [Ratio] 22.47 kg/m2 Zenaida Interiano SCOOTER MECHANIC Work Phone: [facility] 11-26-2024 10:15-0500 Body temperature 98.4 [degF] Zenaida Interiano SCOOTER MECHANIC Work Phone: [facility] 11-26-2024 10:15-0500 Body weight 61.24 kg Zenaida Interiano SCOOTER MECHANIC Work Phone: [facility] 11-26-2024 10:15-0500 Diastolic blood pressure 70 mm[Hg] Zenaida Interiano SCOOTER MECHANIC Work Phone: [facility] 11-26-2024 10:15-0500 Heart rate 78 /min Zenaida Interiano SCOOTER MECHANIC Work Phone: [facility] 11-26-2024 10:15-0500 SaO2% (BldA) [Mass fraction] 99 % Zenaida Interiano SCOOTER MECHANIC Work Phone: [facility] 11-26-2024 10:15-0500 Systolic blood pressure 110 mm[Hg] Zenaida Interiano SCOOTER MECHANIC Work Phone: [facility] Healthcare Encounters Encounter Date Encounter Type Care Provider Facility Start: 06-29-2025 End: 06-29-2025 Patient encounter status Lisset Antonia Rinkes DO Work Phone: [facility] Start: 06-29-2025 End: 06-29-2025 Periodic preventive med est patient 18-39 yrs Lisset E Rinkes DO Work Phone: [facility] [place] Comment on above: Encounter for gyneco logical examination without abnormal finding; Screening for malignant neoplasm of cervix Start: 06-29-2025 End: 06-29-2025 ambulatory LISSET E RINKES Not Available Start: 06-29-2025 End: 06-29-2025 Bamboo flowsheet Lisset E Rinkes DO Work Phone: [facility] [place] Start: 06-29-2025 End: 06-29-2025 Bamboo flowsheet Lisset E Rinkes DO Work Phone: [facility] [place] Start: 12-27-2024 End: 12-28-2024 Telephone encounter Lisset E Rinkes DO Work Phone: [facility] Start: 11-26-2024 End: 11-26-2024 Office outpatient visit 25 minutes Zenaida Interiano SCOOTER MECHANIC Work Phone: [facility] Comment on above: Acute cystitis witho ut hematuria (Primary Dx) Start: 11-26-2024 End: 11-26-2024 ambulatory ZENAIDA INTERIANO Not Available Start: 09-30-2024 End: 12-07-2024 Telephone encounter Lisset Domingo DO Work Phone: [facility] Comment on above: Appointment Request (Switch from PPJ to KER ) Start: 12-26-2023 End: 12-26-2023 Admission to same day surgery center DO Omar Moe Work Phone: [facility] Work Phone: Start: 12-26-2023 End: 12-26-2023 ambulatory DO Omar Moe Work Phone: [facility] Work Phone: Start: 01-24-2023 End: 01-25-2023 ambulatory MONALISA LOVE [facility] Start: 01-24-2023 End: 01-24-2023 [facility] Start: 11-19-2022 End: 11-20-2022 ambulatory LILIAN SHELL Pallavi [facility] Start: 11-19-2022 End: 11-19-2022 [facility] Start: 10-28-2022 End: 10-29-2022 ambulatory [facility] Procedures Date Procedure Procedure Detail Performing Clinician Start: 11-26-2024 URINARY TRACT INFECT ION (HTRX) Zenaida Interiano SCOOTER MECHANIC Work Phone: Start: 11-19-2022 Hepatitis b surf ant ibody hbsab Lilian hSell REVIEW RN - PATIENT NAVIGATOR Work Phone: Plan of Treatment Date Care Activity Detail Author Start: 07-25-2025 Influenza vaccination Influenza Vacc ine (#1) [facility] Start: 06-29-2025 End: 06-29-2025 Patient encounter procedure 06/29/2025 2:45 PM EDT Office Visit ELAN AVILAN [address] [place] [id number] Lisset Domingo, DO [address] [place] [address] Encounter for gynecological examination without abnormal finding; Screening for malignant neoplasm of cervix [facility] Comment on above: Encounter for gyneco logical examination without abnormal finding; Screening for malignant neoplasm of cervix Start: 01-05-2025 End: 01-05-2025 Patient encounter procedure 01/05/2025 10:30 AM EST Office Visit [facility]AN [facility]ST[facility] [address] [place] [id number] Lisset Domingo, DO [address] [place] [address] [facility] Start: 06-24-2022 Influenza vaccination Flu vaccine (# 1) [facility] Start: 2016 DTaP/Tdap/Td vaccine (1 - Tdap) DTaP/Tdap/Td vaccine (1 - Tdap) [facility] Start: 03-09-1998 COVID-19 Vaccine (#1) COVID-19 Vacci ne (#1) [facility] End: 01-24-2023 Hepatitis B Surface Antibody [facility] Work Phone: Comment on above: Once for 1 Occurrenc es starting 01/24/2023 until 01/24/2023 IGP, RFX APTIMA HPV ASCU IGP, RF X APTIMA HPV ASCU Lab Routine Screening for malignant neoplasm of cervix Ordered: 06/29/2025 [facility] [employer] Work Phone: Comment on above: Ordered: 06/29/2025 VAGINITIS (HTRX) VAGINITIS (HTRX ) Lab Routine Acute cystitis without hematuria Ordered: 11/26/2024 [facility] [employer] Work Phone: Comment on above: Ordered: 11/26/2024 Immunizations Immunization Date Immunization Notes Care Provider Fa james 08-25-2024 influenza virus vacc ine, unspecified formulation Lisset Domingo DO Work Phone: [facility] Payers Date Payer Category Payer Unknown [id number] 2024 [facility] [id number] 2024 Unknown [id number] 2023 Self-pay [id number] 2023 Managed Care HMO (unspecified) [employer] [id number] 2020 Unknown [id number] 1995 Unknown [id number] 1995 Unknown [id number] 1995 Unknown [id number] Unknown [facility] [id number] Unknown [place] [id number] Unknown [id number] Social History Date Type Detail Facility [facility] [employer] Phone: Start: 1995 Sex Assigned At Not on file [facility] [employer] Phone: Start: 1995 Sex Assigned At Female F [facility] Start: 12-02-2023 [facility] Never smoked tobacco [facility] Start: 12-02-2023 Tobacco use and exposure Smoke less tobacco non-user [facility] Start: 12-02-2023 End: 06-29-2025 Alcoholic beverage intake Lifetime non-drinker (finding) [facility] Start: 12-01-2023 End: 04-21-2025 History of Social function [facility] Start: 12-01-2023 End: 04-21-2025 Humiliation, Afraid, Rape, and Kick questionnaire [HARK] [facility] Within the last year , have you been afraid of your partner or ex-partner? No [facility] Do you belong to any clubs or organizations such as gnosticist groups, unions, fraternal or athletic groups, or school groups? Yes [facility] Are you now , , , , never or living with a partner? [facility] How often to you hav e a drink containing alcohol? Monthly or less [facility] How many standard dr inks containing alcohol do you have on a typical day? 1 or 2 [facility] How often do you hav e 6 or more drinks on 1 occasion? Never [facility] How hard is it for y ou to pay for the very basics like food, housing, medical care, and heating Not very hard [facility] Do you feel stress - tense, restless, nervous, or anxious, or unable to sleep at night because your mind is troubled all the time - these days [OSQ] Only a little [facility] (I/We) worried wheth er (my/our) food would run out before (I/we) got money to buy more. Never true [facility] In the past 12 month s, has lack of transportation kept you from medical appointments or from getting medications? No [facility] Start: 04-30-2023 Alcohol Comment Caffeine intak e: occasional chocolate , soda [facility] Start: 02-05-2023 Gender identity Identifies as female gender (finding) [facility] NEGATED: Highlighted rowStart: RIVASF History of tobacco use Passive smoker [facility] Clinical Notes 09-30-2024 to 06-29-2025 Lisset Domingo, - 06/29/2025 2:45 PM EDTTelephone Encounter - Staci Darnell, [place] - 12/28/2024 7:36 AM ESTTelephone Encounter - Staci [place], [place] - 12/28/2024 7:36 AM EST Note Date & Type Note Facility 06-29-2025 History of Presen t illness Narrative Images from the original note were not [...] Wt 140 lb LMP 05/26/2025 BMI 23.30 kg/m OB Status Having periods Smoking Status Never BSA 1.71 m No Known Allergies History of Present Illness, [...] Review Audit Reviewed by Staci Darnell MA (Assistant Manager/Embalmer) on 06/29/25 at 1448 Medication Order Taking? Sig Documenting Provider Last Dose Status Vit w/Fd-Atjevhybh-BP (PNV PO) [id number] Yes Take by mouth Lisset Domingo, Active Past Medical History: Diagnosis Date Hormone disorder 01/01/2023 Neck mass Neck mass Ovarian cyst 01/01/2023 Polycystic ovary syndrome 01/01/2023 Past Surgical History: Procedure Laterality Date LASIK 11/07/2021 LASIK 11/07/2021 NECK MASS EXCISION 2013 NECK SURGERY 2014 excision submental mass Family [...] to gross testing, coordination, and gait are normal or at baseline unless noted below. General Examination: [...] APTIMA HPV ASCU documented in this encounter [facility] 12-28-2024 Telephone encounter Note Can do in sick visit spot for yearly [facility] 12-28-2024 Miscellaneous Notes Can do in sick visit spot for yearly Patient has an apt on 01/05/25 to discuss fertility. The patient was scheduled as a problem visit so it is doubled and she is on her period. Where would the next available spot be for a yearly with ? I don't see anything until May unless you would want her to be se a certain day before? documented in this encounter [facility] 12-27-2024 Telephone encounter Note Patient has an apt on 01/05/25 to discuss fertility. The patient was scheduled as a problem visit so it is doubled and she is on her period. Where would the next available spot be for a yearly with ? I don't see anything until May unless you would want her to be se a certain day before? [facility] 11-26-2024 History of Presen t illness Narrative Images from the original note were not included. [address] , [address] [facility] [place], [address] P: [phone] F: [phone] HPI Historian of HPI: patient Susan Boothe is a 29 y.o. female who presents today to the Urgent Care with the following complaints and denials which have been present for 5 day(s) C/O Denies Symptom Comments [x] [] Dysuria [] [x] hematuria [x] [] Urinary frequency [] [x] Urinary incontinence [] [x] Urinary urgency [x] [] Genital itching [] [x] Genital discharge [] [x] Back pain [] [x] Abd pain Additional Comments: Pt denies OTC meds at this time, is taking Motrin. Pt had a low grade temp on New Years. Pt states I have swollen lymphoids in my groin . Pt denies current /. IH Testing: An In-House UA has been obtained and is positive for trace amount of LEUKS only. ROS A complete system ROS was performed and negative aside from the pertinent positives noted in the HPI and PE. PHYSICAL EXAM Examination General Examination: General examination: alert, oriented, normal affect, well-appearing, in no acute distress, well developed, well nourished. Head: normocephalic, atraumatic Eyes: sclera non-icteric Skin: normal Heart: no murmurs, regular rate and rhythm, S1, S2 normal Lungs: clear to auscultation bilaterally, good air movement, no wheezes, rales, rhonchi Abdomen: Suprapubic tenderness, no hepatosplenomegaly, no masses palpable. Musculoskeletal: FROM Extremities: no edema, no cyanosis Neurologic: nonfocal Psych: alert, oriented, cognitive function intact, cooperative with exam. TREATMENT PLAN 1. Acute cystitis without hematuria (Primary) Diagnosis and treatment discussed. Rest and push fluids. Medication instructions and potential s/e discussed. To ER for fever, chills, nausea, vomiting, or severe back/abd pain. Follow-up with PCP if no improvement in 3 days. Discussed urinalysis results. Urine sent for urine culture and vaginitis panel. Will call with results when available - nitrofurantoin, macrocrystal-monohydrate, (Macrobid) 100 MG capsule; Take 1 capsule (100 mg) by mouth every 12 (twelve) hours for 7 days Dispense: 14 capsule; Refill: 0 documented in this encounter [facility] 10-07-2024 Telephone encounter Note Looks like pt was referred to Dr. Noguera. Did pt see that office? We do not have any openings the rest of this year. Pt can be scheduled Nov/January 2025 in Sick visit spot to discuss infertility. Do not double book appointment. If pt is wanting to be seen sooner can check with Dr. Darby sinclair or KRISTIE/BJP. [facility] 10-07-2024 Miscellaneous Notes Looks like pt was referred to Dr. Noguera. Did pt see that office? We do not have any openings the rest of this year. Pt can be scheduled Nov/January 2025 in Sick visit spot to discuss infertility. Do not double book appointment. If pt is wanting to be seen sooner can check with Dr. Darby sinclair or KRISTIE/BJP. 2nd Attempt: Called patient left message for patient to return our call, to get her schd for an appointment. Patient can reach our office @ [phone] Friday through 8:00 AM - 4:00 PM and Friday 8:00 AM - 12:00 PM. Also advised patient that Dr. Domingo is booking into the new year so we wouldn't be able to get her seen until 2024. 1st Attempt: Called and left msg for patient to give our office a call so I get could further information. Patient can reach our office @ [phone] Friday through 8:00 AM - 4:00 PM and Friday 8:00 AM - 12:00 PM. PT called and requested to switch to KER- was seeing PPJ for infertility, previously completed a Clomid cycle and wants to try to get on it again as soon as possible, best call back number is [phone] documented in this encounter [facility] 10-07-2024 Telephone encounter Note 2nd Attempt: Called patient left message for patient to return our call, to get her schd for an appointment. Patient can reach our office @ [phone] Friday through 8:00 AM - 4:00 PM and Friday 8:00 AM - 12:00 PM. Also advised patient that Dr. Domingo is booking into the new year so we wouldn't be able to get her seen until 2024. [facility] 10-01-2024 Telephone encounter Note 1st Attempt: Called and left msg for patient to give our office a call so I get could further information. Patient can reach our office @ [phone] Friday through 8:00 AM - 4:00 PM and Friday 8:00 AM - 12:[address] [facility] 09-30-2024 Telephone encounter Note PT called and requested to switch to KER- was seeing PPJ for infertility, previously completed a Clomid cycle and wants to try to get on it again as soon as possible, best call back number is [phone] [facility] Evaluation note No assessment inform ation available [facility] Work Phone: Evaluation note Diagnosis Acute cystitis without hematuria- Primary documented [facility] this encounter [facility] Diagnosis Encounter for gynecological examination without abnormal finding Screening for malignant neoplasm of cervix Screening for malignant neoplasm of the cervix documented in this encounter [facility] Summary Purpose Family History No Family History Records FoundNo Family History Records FoundNo Family History Records Found Advance Directives No Advanced Directives Records Found Advance Directive Response Recorded Date/ Time Advance Directives No October 8:56am Chief Complaint and Reason for Visit Chief Complaint IR Additional Source Comments INFORMATION SOURCE (unrecogn ized section and content) DATE CREATED AUTHOR 01/28/2023 [facility] DATE CREATED AUTHOR AUTHOR'S ORGANIZ ATION 06/28/2024 [facility] DATE CREATED AUTHOR AUTHOR'S ORGANIZ ATION 07/02/2025 [facility] Care Teams (unrecognized sec tion and content) Team Status: Active Member Role Status Dates Omar Moe DO Primary Care Provider Active Team Status: Inactive Member Role Status Dates Omar Moe DO Primary Care Provider Active St art: December 26, 2023 End: December 26, 2023 Naseem Gomez MD Attending Provider Active St art: December 26, 2023 End: December 26, 2023 Agents' Records Clerk Relationship Specialty Start Date End Date Omar Moe DO [address] [place] [address] PCP - General Family Medicine 04/01/23 Agents' Records Clerk Relationship Specialty Start Date End Date Omar Moe DO [address] [place] [address] PCP - General Family Medicine 04/01/23 Agents' Records Clerk Relationship Specialty Start Date End Date Omar Moe DO [address] [place] [address] PCP - General Family Medicine 04/01/23 Agents' Records Clerk Relationship Specialty Start Date End Date Omar Moe, DO [address] [place] [address] PCP - [facility] 04/01/23 Zenaida Interiano, SCOOTER MECHANIC [address] [place] [address] PCP - [facility] 02/22/25 Agents' Records Clerk Relationship Specialty Start Date End Date Omar Moe DO [address] [place] [address] PCP - [facility] 04/01/23 Zenaida Interiano, SCOOTER MECHANIC [address] [place] [address] PCP - [facility] 02/22/25 Goals (unrecognized section and content) Goals may be documented in a n alternate section Reason for Visit (unrecogniz ed section and content) Reason Onset Date Comments Appointment Request 09/30/2024 Switch from [facility] to [facility] Reason Comments Gynecologic Exam Pt had egg retrieval May 16. Denies concerns. Denies bowel/bladder/breast concerns. LMP 05/26/25 menses irregular, usually 34 days apart. FOR RECORDS PERTAINING TO PATIENTS WHO ARE OR HAVE BEEN ENROLLED IN A CHEMICAL DEPENDENCY/SUBSTANCEABUSE PROGRAM, SOME INFORMATION MAY BE OMITTED. This clinical summary was aggregated from multiple sources. Caution should be exercised in using it in the provision of clinical care. This summary normalizes information from multiple sources, and as a consequence, information in this document may materially change the coding, format and clinical context of patient data. In addition, data may be omitted in some cases. CLINICAL DECISIONS SHOULD BE BASED ON THE PRIMARY CLINICAL RECORDS. [facility]. provides no warranty or guarantee of the accuracy or completeness of information in this document.
[2025-07-07 09:41] LABS: Hematocrit 42.0 % (36.0-48.0); Hemoglobin 14.0 g/dL (12.0-16.0); Immature Granulocytes Abs Auto 0.01 10^3/uL (0.00-0.03); Immature Granulocytes Pct Auto 0.1 % (0.0-0.5); Lymphocytes Absolute Auto 3.1 10^3/uL (1.2-3.8); Mean Corpuscular HGB Conc 33.3 g/dL (29.9-35.2); Mean Corpuscular Hemoglobin 29.8 pg (26.7-34.0); Mean Corpuscular Volume 89.4 fL (81.0-99.0); Platelet Count 323 10^3/uL (150-450); Red Blood Count 4.70 10^6/uL (4.20-5.40); White Blood Count 6.9 10^3/uL (4.0-11.0)
[2025-07-07 10:18] LABS: Alanine Aminotransferase 24 U/L (14-59); Albumin Globulin Ratio 1.2; Albumin Level 4.2 g/dL (3.4-5.0); Alkaline Phosphatase 78 U/L (46-116); Anion Gap 6.9; Aspartate Amino Transferase 17 U/L (15-37); Blood Urea Nitrogen 17.0 mg/dL (7.0-18.0); Calcium 9.4 mg/dL (8.5-10.1); Carbon Dioxide 32.4 mmol/L (21.0-32.0); Chloride 102 mmol/L (98-107); Cholesterol 211 mg/dL (<=200); Estimated GFR (African America >60 (>=60 mL/min/1.73m^2); Estimated GFR (Non-African Ame >60 (>=60 mL/min/1.73m^2); Globulin 3.4 g/dL; Glucose 86 mg/dL (74-106); HDL Cholesterol 123 mg/dL (40-60); Potassium 4.3 mmol/L (3.5-5.1); Sodium 137 mmol/L (136-145); Thyroid Stimulating Hormone 2.434 uIU/mL (0.358-3.740); Total Protein 7.6 g/dL (6.4-8.2); Triglycerides 26 mg/dL (<=150); VLDL CHOLESTEROL 5.2 mg/dL
== END 2025-07-07 09:17 | disposition home or self-care (01) ==
LOC: LAB 09:19
PROVIDERS: PCP Family Medicine; Visit Provider Obstetrics & Gynecology
DX: Z00.00 Encounter for general adult medical examination without abnormal findings (principal)
CPT/HCPCS: 36415; 80053; 80061; 83036; 84443; 85025

== ENCOUNTER 2025-07-29 14:16 | Outpatient (OUT) | payer BC, SELFPAY ==
--- OUTSIDE RECORDS SUMMARY | 2021-03-29 07:00 | XMS_ITS | Continuity of Care Document ---
Author Organization [facility] Address [address] [place] [address] Phone Care Team Providers Care Jewelry Repairer Name Role Phone Jun Moreno Unavailable Unavailable Procedures Procedure Date TB Read TB INTRADERMAL TEST Advance Directives Directive Yes / No Effective Date File Name No Information Encounters Encounter Description Practice Location Reason(s) For Visit Diagnoses Date Provider Providers Copied on Encounter [facility], [address] [place] [address], [id number], tel:[phone] [facility] No Information Maria Luisa Byrnes. [address] [place], [place], [id number], [place]. tel:[phone] [facility], [address], [place], [id number], [place] tel:[phone] [facility] Encounter for screening for respiratory tuberculosis Maria Luisa Byrnes. [address], [place], [id number], [place]. tel:[phone] Family History Family Member Type Diagnosis Age At Onset No Information Payers Payer name Insurance type Covered republican ID Authoriza tion(s) No Information Social History [...]
--- OUTSIDE RECORDS SUMMARY | 2025-07-29 14:18 | XMS_ITS | Encounter Summary ---
Author Organization [facility] Address [address] [place] [address] Care Team Providers Care Muffler Hand Name Role Phone Omar Moe DO Primary Care Provider [phone] Bernice Interiano LASER BEAM TRIM OPERATOR Unavailable [phone] Encounter Details Date Type Department Care Team (Late st Contact Info) Description 02/21/2025 Abstract [facility] [address] [facility] [address] [place] [phone] Omar Moe DO [address] [place] [address] Social History Tobacco Use Types Packs/Day Years [...] often do you attend chur ch or synagogue services? More than 4 times per year 12/01/2023 Do you belong to any clubs o r organizations such as caodaism groups, unions, fraternal or athletic groups, or [...] care, and heating? Not very hard 12/01/2023 [facility] Occupat ional Health - Occupational Stress [...] place to sleep or slept in a fpc (including now)? No 12/01/2023 Comments No Sex [...] FLANNERY [address] [place] [address] Lisset Domingo DO [address] [place] [address] documented as of this encounter Visit Diagnoses Not on filedocumented in this encounter Care Teams Muffler Hand Relationship Specialty Start Date End Date Omar Moe DO [address] [place] [address] PCP - General Family Medicine 04/01/23 Bernice Interiano NP [address] [place] [address] PCP - [place] [employer] 02/22/25 documented as of this encounter
--- OUTSIDE RECORDS SUMMARY | 2025-07-29 14:18 | XMS_ITS | Encounter Summary ---
Author Organization [facility] Address [address] [facility] [place] [address] Care Team Providers Care Machinist Helper Marine Name Role Phone Omar Moe Primary Care Provider Bernice Interiano DIRECTOR CARDIOLOGY Unavailable [phone] Encounter Details Date Type Department Care Team (Late st Contact Info) Description 05/01/2023 Abstract [facility] [address] [facility] [address] [place] [address] Naseem Gomez MD [address] [facility] [address] [facility] [address] [place] [address] Social History Tobacco Use Types Packs/Day Years [...] FLANNERY [address] [place] [address] Lisset Domingo DO [address] [place] [address] documented as of this encounter Visit Diagnoses Not on filedocumented in this encounter Care Teams Machinist Helper Marine Relationship Specialty Start Date End Date Omra Moe DO [address] [place] [address] PCP - General Family Medicine 04/01/23 Bernice Interiano NP [address] [place] [address] PCP - [facility] 02/22/25 documented as of this encounter
--- OUTSIDE RECORDS SUMMARY | 2025-07-29 14:18 | XMS_ITS | Clinical Summary ---
Author Organization [facility] Address [address] [facility] [place] [address] Care Team Providers Care Tar Kettle Runner Name Role Phone Payal Omar Andrews DO Primary Care Provider [phone] Bernice Interiano RESEARCH SCIENTIST Unavailable [phone] Allergies No known active allergies Medications Vit w/Wv-Cihnlvaui-X A (PNV PO) Take by mouth Active Encounters Date Type Department Care Team Description 07/07/2025 Clinisync Result Encounter [facility] External Department Unsolicited Provider, Generic External Data 06/29/2025 2:45 PM EDT Office Visit [facility] [address] [place] [phone] Lisset Domingo DO Encounter for gynecological examination without abnormal finding; Screening for malignant neoplasm of cervix 06/29/2025 Bamboo flowsheet [facility] [address] [place] [address] Lisset Domingo DO 06/29/2025 Travel from Last [...] often do you attend chur ch or restorationism services? More than 4 times per year 12/01/2023 Do you belong to any clubs o r organizations such as samaritan groups, unions, fraternal or athletic groups, or [...] care, and heating? Not very hard 12/01/2023 [facility] [place] of Occupat ional Health - Occupational Stress [...] place to sleep or slept in a mcfp (including now)? No 12/01/2023 Comments No Sex [...] FLANNERY [address] [place] [phone] Lisset Domingo, [address] [place] [address] Health Maintenance Due Date Last Done Comments Influenza Vaccine (#1) 2025 4, 08/12/2023, 08/16/2022, Additional history exists Procedures Procedure Name Priority Date/Time Associated Diagnosis Comments ALL THYROID STIM HORMONE Routine 07/07/2025 9:31 AM EDT ALL LIPID PROFILE (FASTING) Routine 07/07/2025 9:31 AM EDT [facility] CMP (CMP) (FOR REMOTE [facility] USE) Routine 07/07/2025 9:31 AM EDT MLR HEMOGLOBIN A1C Routine 07/07/2025 9: 31 AM EDT ALL CBC WITH AUTO DIFF Routine 07/07/2025 9:31 AM EDT IGP, RFX APTIMA HPV ASCU Routine 06/29/2025 12:00 AM EDT Screening for malignant neoplasm of cervix from Last 3 Months Results * MLR HEMOGLOBIN A1C (07/07/2025 9:31 AM EDT) GLYCOHEMOGLOBIN A1C 4.7 4.5 - 6.2 % TB Comment: ADA RECOMMENDED LIMIT 4.0 - 6.0 ADA THERAPEUTIC TARGET < 7.0 ACTION SUGGESTED > 7.0 ESTIMATED AVERAGE GLUCOSE 88 mg/dL TBH 07/07/2025 9:31 AM EDT 07/07/2025 9:35 AM EDT Narrative DALENC - 07/07/2025 9:55 AM EDT us Generic External Data Provider CLINISYNC F inal Result [facility]IS[facility]NC [facility] * (ABNORMAL) CCF CMP (CMP) (FOR REMOTE [facility] USE) (07/07/2025 9:31 AM EDT) SODIUM 137 136 - 145 mmol/L TBH POTASSIUM 4.3 3.5 - 5.1 mmol/L TBH CHLORIDE 102 98 - 107 mmol/L TBH CARBON DIOXIDE 32.4(H) 21.0 - 32.0 mmol/L TBH ANION GAP 6.9 TBH GLUCOSE 86 74 - 106 mg/dL TBH BLOOD UREA NITROGEN 17.0 7.0 - 18.0 mg/dL TBH CREATININE 1.06(H) 0.55 - 1.02 mg/dL TBH TBH EGFR-AF SPANISH >60 >=60 mL/min/1. 73m 2 TBH TBH EGFR-NON AF SPANISH >60 >=60 mL/min/1. 73m 2 TBH BUN CREATININE RATIO 16.0 TBH CALCIUM 9.4 8.5 - 10.1 mg/dL TBH BILIRUBIN TOTAL 0.7 0.2 - 1.0 mg/dL TBH ASPARTATE AMINO TRANSFERASE 17 15 - 37 U/L TBH ALANINE AMINOTRANSFERASE 24 14 - 59 U/L TBH ALKALINE PHOSPHATASE 78 46 - 116 U/L TBH TOTAL PROTEIN 7.6 6.4 - 8.2 g/dL TBH ALBUMIN LEVEL 4.2 3.4 - 5.0 g/dL TBH GLOBULIN 3.4 g/dL TBH ALBUMIN GLOBULIN RATIO 1.2 TBH 07/07/2025 9:31 AM EDT 07/07/2025 9:35 AM EDT Narrative [facility] - 07/07/2025 10:22 AM EDT Generic External Data Provider DALENC Nani chaidezl Result Performing Organization Address [facility] de Phone Number [facility] * ALL THYROID STIM HORMONE (07/07/2025 9:31 AM EDT) THYROID STIMULATING HORMONE 2.434 0.358 - 3.740 uIU/mL TB 07/07/2025 9:31 AM EDT 07/07/2025 9:35 AM EDT [facility] - 07/07/2025 10:22 AM EDT Generic External Data Provider FORRESTISYNC Nani ina Result Performing Organization Address [facility] de Phone Number [facility] * (ABNORMAL) ALL LIPID PROFILE (FASTING) (07/07/2025 9:31 AM EDT) TRIGLYCERIDES 26 <=150 mg/dL TBH CHOLESTEROL 211(H) <=200 mg/dL TB HDL CHOLESTEROL 123(H) 40 - 60 mg/dL TB Comment: > or =60 mg/dl - LOW CARDIOVASCULAR RISK <40 mg/dl - HIGH CARDIOVASCULAR RISK LDL CHOLESTEROL CALCULATED 83.0 mg/dL TB Comment: <100 mg/dl OPTIMAL 100-129 mg/dl NEAR OR ABOVE OPTIMAL 130-159 mg/dl BORDERLINE HIGH 160-189 mg/dl HIGH >190 mg/dl VERY HIGH VLDL CHOLESTEROL 5.2 mg/dL TB CHOL HDL RATIO 1.7 TB Comment: 3.3 - 4.4 LOW RISK 4.4 - 7.1 AVERAGE RISK 7.1 - 11.0 MODERATE RISK >11.0 HIGH RISK 07/07/2025 9:31 AM EDT 07/07/2025 9:35 AM EDT [facility] - 07/07/2025 10:22 AM EDT us Generic External Data Provider NAMITA Cardoza inal Result NAMITA [facility] * (ABNORMAL) ALL CBC WITH AUTO DIFF (07/07/2025 9:31 AM EDT) [facility] TB WBC 6.9 4.0 - 11.0 10 3/uL TBH TBH RBC 4.70 4.20 - 5.40 10 6/uL TBH TBH HGB 14.0 12.0 - 16.0 g/dL TBH TBH HCT 42.0 36.0 - 48.0 % TBH TBH MCV 89.4 81.0 - 99.0 fL TBH TBH MCH 29.8 26.7 - 34.0 pg TBH TBH MCHC 33.3 29.9 - 35.2 g/dL TBH TBH RDW 12.2 11.0 - 15.0 % TBH TBH PLT 323 150 - 450 10 3/uL TBH TBH MPV 8.4(L) 9.5 - 13.5 fL TBH NEUTROPHILS PERCENT AUTO 43.9 43.0 - 75.0 % TBH LYMPHOCYTES PERCENT AUTO 45.4 20.5 - 60.0 % TBH MONOCYTES PERCENT AUTO 7.7 1.7 - 12.0 % TBH TBH EO % 2.6 0.9 - 7.0 % TBH BASOPHILS PERCENT AUTO 0.3 0.2 - 2.0 % TBH IMMATURE GRANULOCYTES PCT AUTO 0.1 0.0 - 0.5 % TBH NEUTROPHILS ABSOLUTE AUTO 3.0 1.4 - 6.5 10 3/uL TBH LYMPHOCYTES ABSOLUTE AUTO 3.1 1.2 - 3.8 10 3/uL TBH MONOCYTES ABSOLUTE AUTO 0.5 0.3 - 0.8 10 3/uL TBH TBH EO # 0.2 0.0 - 0.7 10 3/uL TBH BASOPHILS ABSOLUTE AUTO 0.0 0.0 - 0.1 10 3/uL TBH IMMATURE GRANULOCYTES ABS AUTO 0.01 0.00 - 0.03 10 3/uL TBH 07/07/2025 9:31 AM EDT 07/07/2025 9:35 AM EDT Narrative NAMITA - 07/07/2025 9:42 AM EDT Generic External Data Provider FORRESTHUGORANDA Nani franco Result Performing Organization Address City/[facility]/ZIP Co de Phone Number NAMITA TBH * IGP, RFX APTIMA HPV ASCU (06/29/2025 12:00 AM EDT) Diagnosis: Comment [facility] Comment:NEGATIVE FOR INTRAEP ITHELIAL LESION OR MALIGNANCY. Specimen Adequacy: Comment [facility] Comment: Satisfactory for evaluation. Endocervical and/or squamous metaplastic cells (endocervical component) are present. Clinician Provided ICD10: Comment [facility] Comment:Z12.4 Performed By: Comment [facility] Comment:Michael Jain, Director Treasurer ([facility]) Cyto Comments . [facility] Note: Comment [facility] [...] 07/01/2025 1:07 PM EDT Performed at: - [address] [id number] Customer Service Technician: Sepideh Varela MD, Phone: [phone] Specimen Comment: [id number] Specimen Comment: No. of containers..01 ThinPrep Vial Lisset Domingo DO LAB BLOOD ORDERABLES Final Result Performing Organization Address City/[facility]/ZIP Co de Phone Number [facility] from Last 3 Months Insurance BCBS Care Teams Tar Kettle Runner Relationship Specialty Start Date End Date Omar Moe DO [address] [place] [address] PCP - General Family Medicine 04/01/23 Bernice Interiano NP [address] [place] [address] PCP - [place] [employer] 02/22/25
--- OUTSIDE RECORDS SUMMARY | 2025-07-29 14:18 | XMS_ITS | Clinical Summary ---
Author Organization [facility] Address [address] [place] [address], [address] [place] [address] Care Team Providers Care Snowsport Instructor Name Role Phone Unavailable Primary Care Provider [...]
--- OUTSIDE RECORDS SUMMARY | 2025-07-29 14:22 | XMS_ITS | CCD ---
Author Organization [facility] Team Providers Care Safe And Vault Service Mechanic Name Role Phone Unavailable Primary Care Provider UnavailEVIN Haddad Referring Unavailable LILIAN SHELL Referring Unavailable MONALISA LOVE Referring Unavailable DO Omar Moe Primary Care Provider MD Naseem Gomez Attending Provider [phone] Naseem Gomez Admitting Unavailable Naseem Gomez Attending Unavailable Omar Moe Primary Care Unavailable Omar Moe DO Primary Care Provider Zenaida Interiano NP Unavailable [phone] LISSET DOMINGO Attending Unavailable ZENAIDA INTERIANO Attending [...] days 14 capsule 11/26/2024 12/03/2024 Active Vit w/Gr-Mhluyrhog-EA (PNV PO) (3 sources) Vit w/Xv-Kcyrzbzav-A A (PNV PO) Take by mouth Active [...] Test Name Value Interpretation Reference Range Facility ALL CBC WITH AUTO DIFFon BASOPHILS ABSOLUTE AUTO 0 [facility] Basophils/100 WBC (Bld) 0.3 % 0.2 - 2.0 % [facility] Eosinophils/100 WBC (Bld) 2.6 % 0.9 - 7.0 % [facility] Erythrocyte distribution width (RBC) [Ratio] 12.2 % 11.0 - 15.0 % [facility] Hematocrit (Bld) [Volume fraction] 42 % 36.0 - 48.0 % [facility] Hemoglobin (Bld) [Mass/Vol] 14 g/dL 12.0 - 16.0 g/dL [facility] IMMATURE GRANULOCYTES ABS AUTO 0.01 [facility] Immature granulocytes/100 WBC (Bld) 0.1 % 0.0 - 0.5 % [facility] Interpretation and review of laboratory results Abnormal [facility] LYMPHOCYTES ABSOLUTE AUTO 3.1 [facility] Lymphocytes/100 WBC (Bld) 45.4 % 20 .5 - 60.0 % [facility] MCH (RBC) [Entitic mass] 29.8 pg 26. 7 - 34.0 pg [facility] MCHC (RBC) [Mass/Vol] 33.3 g/dL 29.9 - 35.2 g/dL [facility] MCV (RBC) [Entitic vol] 89.4 fL 81.0 - 99.0 fL [facility] MONOCYTES ABSOLUTE AUTO 0.5 [facility] Monocytes/100 WBC (Bld) 7.7 % 1.7 - 12.0 % [facility] NEUTROPHILS ABSOLUTE AUTO 3 [facility] Neutrophils/100 WBC (Bld) 43.9 % 43 .0 - 75.0 % [facility] Platelet mean volume (Bld) [Entitic vol] 8.4 fL Low 9.5 - 13.5 fL [facility] TBH EO # 0.2 [facility] TBH PLT 323 [facility] TBH RBC 4.7 [facility]H WBC 6.9 [facility] CLINISYNC [facility] MLR HEMOGLOBIN A1Con 025 Glucose [Mass/Vol] 88 mg/dL [facility] HbA1c (Bld) [Mass fraction] 4.7 % 4.5 - 6.2 % [facility] Comment on above: ADA RECOMMENDED LIMI T 4.0 - 6.0 ADA THERAPEUTIC TARGET < 7.0 ACTION SUGGESTED > 7.0 [facility] No Panel Informationon 11-27 ACINETOBACTER BAUMANII 0 [...] Healthcare [place] hysterosalpingographyon 0 12-26-2023 [place] hysterosalpingography [facility] [address] [address] Fluoroscopy Report Signed Patient: Susan Boothe MR#: [id number] 3 : 1995 Acct:[id number] Age/Sex: 28 / F ADM Date: 12/26/23 Loc: XD Room: Type: [facility] Attending Dr: Naseem Gomez MD Copies to: Naseem Gomez MD-ELAN Ordering Provider: YANIV Pollard Date of Service: 12/26/23 FL/FL hysterosalpingography: ANOVULATION, IRREGULAR MENSES Hysterosalpingogram. Reason for exam: Evaluate for tubal patency. Findings: 4 images were obtained intraoperatively. Examination was performed by the FINISH REPAIRER service. No radiologist was present for procedure. Normal contour of the uterus. No definite pooling of contrast is seen within the peritoneum to suggest spillage. Cumulative Air Kerma in mGy: 11.238 mGy FL/FL hysterosalpingography Impression: HSG performed by the FINISH REPAIRER service. Impression dictated by: Morgan Delgado Jr., D.OMeagan12/26/2023 1:16 PM Dictation Location: [place] [address] Transcribed By: [facility] 12/26/23 1316 Dictated By: Morgan Delgado Jr, DO 12/26/23 1314 Signed By: 12/26/23 1316 Normal [facility] Hep B Surf Abon 01-25-2023 Hep B Surf Ab 500.90 mIU/mL High <10 [facility] Comment on above: Result Comment: REFERENCE RANGE: [...] infection. Performed By: #### A HBS #### [place] [id number] [place], [place] [id number] Die Press Operator: Kvng Casanova MD Hep B Surf Abon 11-20-2022 Hep B Surf Ab <3.50 Normal <10 [facility] Comment on above: Result Comment: REFERENCE RANGE: <10.0 NON-REACTIVE/NOT IMMUNE >=10.0 REACTIVE/IMMUNE Performed By: #### A HBS #### [employer] [facility] [place], [place] [id number] Die Press Operator: Kvng Casanova MD Hepatitis B Surface Antibody on 11-19-2022 HBV surface Ab (S) [Titer] <3.50 [facility] Comment on above: REFERENCE RANGE: <10.0 NON-REACTIVE/NOT IMMUNE >=10.0 REACTIVE/IMMUNE [facility] VZ Immunityon 10-30-2022 VZ Immunity 2.64 Normal >1.09 [facility] Comment on above: Result Comment: Interpretation: IMMUNE Reference Range: <0.91 Not Immune 0.91-1.09 Equivocal >1.09 Immune Performed By: #### V ZI #### [employer] [address] [place] [id number] [employer] Press Operator: Kvng Casanova MD Vital Signs Date Time Vital Sign Value Performing Clinician Lázaro sarmiento 06-29-2025 14:49-0400 Body mass index (BMI) [Ratio] 23.3 kg/m2 [employer] DO Work Phone: [facility] 06-29-2025 14:49-0400 Body weight 63.5 kg [employer] DO Work Phone: [facility] 06-29-2025 14:49-0400 Diastolic blood pressure 80 mm[Hg] Lisset Rinkes DO Work Phone: [facility] 06-29-2025 14:49-0400 Systolic blood pressure 136 mm[Hg] Lisset Rinkes DO Work Phone: [facility] 11-26-2024 10:15-0500 Body mass index (BMI) [Ratio] 22.47 kg/m2 Zenaida Interiano TIRE AND TUBE REPAIRER Work Phone: [facility] 11-26-2024 10:15-0500 Body temperature 98.4 [degF] Zenaida Interiano TIRE AND TUBE REPAIRER Work Phone: [facility] 11-26-2024 10:15-0500 Body weight 61.24 kg Zenaida Interiano TIRE AND TUBE REPAIRER Work Phone: [facility] 11-26-2024 10:15-0500 Diastolic blood pressure 70 mm[Hg] Zenaida Interiano TIRE AND TUBE REPAIRER Work Phone: [facility] 11-26-2024 10:15-0500 Heart rate 78 /min Zenaida Interiano TIRE AND TUBE REPAIRER Work Phone: [facility] 11-26-2024 10:15-0500 SaO2% (BldA) [Mass fraction] 99 % Zenaida Interiano TIRE AND TUBE REPAIRER Work Phone: [facility] 11-26-2024 10:15-0500 Systolic blood pressure 110 mm[Hg] Zenaida Interiano TIRE AND TUBE REPAIRER Work Phone: [facility] Healthcare Encounters Encounter Date Encounter Type Care Provider Facility Start: 07-07-2025 End: 07-07-2025 Clinisync Result Encounter Generic External Data Provider [facility] Unsolicited Start: 07-07-2025 End: 07-07-2025 Clinisync Result Encounter Generic External Data Provider [facility] External [facility] Unsolicited Start: 06-29-2025 End: 06-29-2025 Patient encounter status Lisset Kingstonkes DO Work Phone: [facility] Start: 06-29-2025 End: 06-29-2025 Periodic preventive med est patient 18-39 yrs Lisset Kingstonkes DO Work Phone: [facility] Comment on above: Encounter for gyneco logical examination without abnormal finding; Screening for malignant neoplasm of cervix Start: 06-29-2025 End: 06-29-2025 ambulatory LISSET DOMINGO Not Available Start: 06-29-2025 End: 06-29-2025 Bamboo flowsheet Lisset E Rinkes DO Work Phone: [facility] Start: 06-29-2025 End: 06-29-2025 Bamboo flowsheet Lisset E Rinkes DO Work Phone: [facility] [place] [facility] Start: 12-27-2024 End: 12-28-2024 Telephone encounter Lisset Knight Vashtilacho DO Work Phone: [facility] Start: 11-26-2024 End: 11-26-2024 Office outpatient visit 25 minutes Zenaida Interiano TIRE AND TUBE REPAIRER Work Phone: [facility] Comment on above: Acute cystitis witho ut hematuria (Primary Dx) Start: 11-26-2024 End: 11-26-2024 ambulatory ZENAIDA INTERIANO Not Available Start: 09-30-2024 End: 12-07-2024 Telephone encounter Lisset Domingo DO Work Phone: [facility] Comment on above: Appointment Request (Switch from PPJ to KER ) Start: 12-26-2023 End: 12-26-2023 Admission to same day surgery center DO Omar Vicenteer Work Phone: [facility] Work Phone: Start: 12-26-2023 End: 12-26-2023 ambulatory DO Omar Moe Work Phone: [facility] Work Phone: Start: 01-24-2023 End: 01-25-2023 ambulatory MONALISA [facility] Start: 01-24-2023 End: 01-24-2023 Subsequent hospital visit by physician [facility] Start: 11-19-2022 End: 11-20-2022 ambulatory LILIAN [facility] Start: 11-19-2022 End: 11-19-2022 Subsequent hospital visit by physician [facility] Start: 10-28-2022 End: 10-29-2022 ambulatory EVIN [facility] Procedures Date Procedure Procedure Detail Performing Clinician Start: 07-07-2025 ALL CBC WITH AUTO DIFF Generic External Data Provider Start: 07-07-2025 MLR HEMOGLOBIN A1C Gene manjit External Data Provider Start: 11-26-2024 URINARY TRACT INFECT ION (HTRX) Zenaida Interiano TIRE AND TUBE REPAIRER Work Phone: Start: 11-19-2022 Hepatitis b surf ant ibody hbsab Lilian Andrews Matthew [employer]OTWE[employer] PRODUCTION MACHINE OPERATOR - WHEELMAN Work Phone: Plan of Treatment Date Care Activity Detail Author Start: 07-25-2026 End: 07-25-2026 Patient encounter procedure 07/25/2026 10:30 AM EDT Office Visit [facility] [address] [place] [address] Lisset Domingo, DO [address] [place], [place] [id number] [facility] Start: 07-25-2025 Influenza vaccination Influenza Vacc ine (#1) [facility] Start: 06-29-2025 End: 06-29-2025 Patient encounter procedure 06/29/2025 2:45 PM EDT Office Visit [facility] [address] [place] [address] Lisset Domingo, DO [address] [place], [place] [id number] Encounter for gynecological examination without abnormal finding; Screening for malignant neoplasm of cervix [facility] Comment on above: Encounter for gyneco logical examination without abnormal finding; Screening for malignant neoplasm of cervix Start: 01-05-2025 End: 01-05-2025 Patient encounter procedure 01/05/2025 10:30 AM EST Office Visit [facility] [address] [place] [address] Lisset Domingo, DO [address] [place] [address] [facility] Start: 06-24-2022 Influenza vaccination Flu vaccine (# 1) [facility] Start: 2016 DTaP/Tdap/Td vaccine (1 - Tdap) DTaP/Tdap/Td vaccine (1 - Tdap) [facility] Start: 03-09-1998 COVID-19 Vaccine (#1) COVID-19 Vacci ne (#1) [facility] End: 01-24-2023 Hepatitis B Surface Antibody [facility] Work Phone: Comment on above: Once for 1 Occurrenc es starting 01/24/2023 until 01/24/2023 IGP, RFX APTIMA HPV ASCU IGP, RF X APTIMA HPV ASCU Lab Routine Screening for malignant neoplasm of cervix Ordered: 06/29/2025 [facility] Work Phone: Comment on above: Ordered: 06/29/2025 VAGINITIS (HTRX) VAGINITIS (HTRX ) Lab Routine Acute cystitis without hematuria Or[facility]: [facility]/26/20[facility]: Comment on above: Ordered: 11/26/2024 Immunizations Immunization Date Immunization Notes Care Provider Herminia ramirez 08-25-2024 influenza virus vacc ine, unspecified formulation Lisset Domingo DO Work Phone: [facility] Healthcare Payers Date Payer Category Payer Unknown [id number] 2024 [facility] Blue [facility] [id number] 2024 Unknown [id number] 2023 Self-pay [id number] 2023 Managed Care O (unspecified) [employer] [id number] 2020 Unknown [id number] 1995 Unknown [id number] 1995 Unknown [id number] 1995 Unknown [id number] Unknown [facility] [id number] Unknown [id number] Unknown [id number] Social History Date Type Detail Facility Tobacco smoking stat [facility] Tobacco smoking consumption unknown [facility] [employer] Phone: Start: 1995 Sex Assigned At Not on file B ON [employer] Phone: Start: 1995 Sex Assigned At Female [facility] Start: 12-02-2023 Tobacco smoking stat [facility] Never smoked tobacco [facility] Start: 12-02-2023 [...] to any clubs or organizations such as christianity groups, unions, fraternal or athletic groups, or [...] Healthcare Clinical Notes 09-30-2024 to 06-29-2025 Lisset Domingo DO - 06/29/2025 2:45 PM EDTTelephone Encounter - Staci Darnell MA - 12/28/2024 7:36 AM ESTTelephone Encounter - Staci Darnell MA - 12/28/2024 7:36 AM EST Note Date [...] Review Audit Reviewed by Staci Darnell MA (Medical Corps Officer) on 06/29/25 at 1448 Medication Order Taking? Sig Documenting Provider Last Dose Status Vit w/Oc-Vrjehwkmk-ZF (PNV PO) [id number] Yes Take by mouth Lisset Domingo, DO Active Past Medical History: Diagnosis Date [...] APTIMA HPV ASCU documented in this encounter [facility] 12-28-2024 Telephone encounter Note Can do March/April in sick visit spot for yearly [facility] 12-28-2024 Miscellaneous Notes Can do March/April in sick visit spot for yearly Patient [...] certain day before? documented in this encounter [facility] 12-27-2024 Telephone encounter Note Patient has an apt on 01/05/25 to discuss fertility. The patient was scheduled as a problem visit so it is doubled and she is on her period. Where would the next available spot be for a yearly with ? I don't see anything until May unless you would want her to be se a certain day before? [facility] 11-26-2024 History of Presen t illness Narrative Images from the original note were not included. [address] , [address] [facility], [address] P: [phone] F: [phone] HPI Historian of HPI: patient Susan Boothe [...] capsule; Refill: 0 documented in this encounter [facility] 10-07-2024 Telephone encounter Note Looks like pt was referred to Dr. Noguera. Did pt see that office? We do not have any openings the rest of this year. Pt can be scheduled Nov/Dec/January 2025 in Sick visit spot to discuss infertility. Do not double book appointment. If pt is wanting to be seen sooner can check with Dr. Darby sinclair or KRISTIE/MARIE. [facility] 10-07-2024 Miscellaneous Notes Looks like pt was referred to Dr. Noguera. Did pt see that office? We do not have any openings the rest of this year. Pt can be scheduled Nov/Dec/January 2025 in Sick visit spot to discuss infertility. Do not double book appointment. If pt is wanting to be seen sooner can check with Dr. Darby sinclair or KRISTIE/BJP. 2nd Attempt: Called patient left message for patient to return our call, to get her schd for an appointment. Patient can reach our office @ [phone] Friday through 8:00 AM - 4:00 PM and Friday 8:00 AM - 12:00 PM. Also advised patient that Dr. Domingo is booking into the new year so we wouldn't be able to get her seen until 2024. 1st Attempt: Called and left msg for patient to give our office a call so I get could further information. Patient can reach our office @ [phone] Friday through 8:00 AM - 4:00 PM and Friday 8:00 AM - 12:00 PM. PT called and requested to switch to KER- was seeing PPJ for infertility, previously completed a Clomid cycle and wants to try to get on it again as soon as possible, best call back number is [phone] documented in this encounter [facility] 10-07-2024 Telephone encounter Note 2nd Attempt: Called patient left message for patient to return our call, to get her schd for an appointment. Patient can reach our office @ [phone] Friday through 8:00 AM - 4:00 PM and Friday 8:00 AM - 12:00 PM. Also advised patient that Dr. Domingo is booking into the new year so we wouldn't be able to get her seen until 2024. [facility] 10-01-2024 Telephone encounter Note 1st Attempt: Called and left msg for patient to give our office a call so I get could further information. Patient can reach our office @ [phone] Friday through 8:00 AM - 4:00 PM and Friday 8:00 AM - 12:00 PM. [facility] 09-30-2024 Telephone encounter Note PT called and requested to switch to KER- was seeing PPJ for infertility, previously completed a Clomid cycle and wants to try to get on it again as soon as possible, best call back number is [phone] [facility] Healthcare Evaluation note No assessment inform ation available [facility] Work Phone: Evaluation note Diagnosis Acute cystitis without hematuria- Primary documented in this encounter [facility] HealthcareEvaluation note* Diagnosis Encounter for gynecological examination without abnormal finding Screening for malignant neoplasm of cervix Screening for malignant neoplasm of the cervix documented in this encounter [facility] Summary Purpose Family History No Family History Records FoundNo Family History Records FoundNo Family History Records Found Advance Directives Advance Directive Response Recorded Date/ Time Advance Directives No October 8:56am Chief Complaint and Reason for Visit Chief Complaint IR Additional Source Comments INFORMATION SOURCE (unrecogn ized section and content) DATE CREATED AUTHOR 01/28/2023 Pallavi sommers DATE CREATED AUTHOR AUTHOR'S ORGANIZ ATION 06/28/2024 [facility] DATE CREATED AUTHOR AUTHOR'S ORGANIZ ATION 07/02/2025 [facility] EPIC Care Teams (unrecognized sec tion and content) Team Status: Active Member Role Status Dates Omar Moe DO Primary Care Provider Active Team Status: Inactive Member Role Status Dates Omar Moe DO Primary Care Provider Active St art: December 26, 2023 End: December 26, 2023 Naseem Gomez MD Attending Provider Active St art: December 26, 2023 End: December 26, 2023 [employer]ault Service Mechanic Relationship Specialty Start Date End Date Omar Moe DO [address] [place] [address] PCP - General Family Medicine 04/01/23 [employer] Vault Service Mechanic Relationship Specialty Start Date End Date Omar Moe DO [address] [place] [address] PCP - General Family Medicine 04/01/23 [employer] Vault Service Mechanic Relationship Specialty Start Date End Date Omar Moe DO [address] [place] [address] PCP - General Family Medicine 04/01/23 [employer] Vault Service Mechanic Relationship Specialty Start Date End Date Omar Moe, [address] [place] [address] PCP - General Family Medicine 04/01/23 Zenaida Interiano NP [address] [place] [address] PCP - [employer] 02/22/25 [employer] Service Mechanic Relationship Specialty Start Date End Date Omar Moe DO [address] [place] [address] PCP - General Family Medicine 04/01/23 Zenaida Interiano NP [address] [place] [address] PCP - [employer] 02/22/25 [employer] Service Mechanic Relationship Specialty Start Date End Date Omar Moe DO [address] [place] [address] PCP - General Family Medicine 04/01/23 Zenaida Interiano NP [address] [place] [address] PCP - [employer] 02/22/25 Goals (unrecognized section and content) Goals may be documented in a n alternate section Reason for Visit (unrecogniz ed section and content) Reason Onset Date Comments Appointment Request 09/30/2024 Switch from PPJ to KER Reason Comments Gynecologic Exam Pt had egg [...] BE BASED ON THE PRIMARY CLINICAL RECORDS. Education Everytime. provides no warranty or guarantee of the accuracy or completeness of information in this document.
== END 2025-07-29 14:17 | disposition home or self-care (01) ==
LOC: LAB 14:17
PROVIDERS: PCP Family Medicine; Visit Provider Obstetrics & Gynecology Reproductive Endocrinology
DX: Z32.00 Encounter for pregnancy test, result unknown (principal)
CPT/HCPCS: 36415; 84702

== ENCOUNTER 2025-08-02 12:37 | Outpatient (OUT) | payer BC, SELFPAY ==
--- OUTSIDE RECORDS SUMMARY | 2025-08-02 12:45 | XMS_ITS | CCD ---
Author Organization [facility] Care Team Providers Care Inventory Control Supervisor Name Role Phone Unavailable Primary Care Provider UnavailEVIN Haddad Referring Unavailable LILIAN SHELL Referring Unavailable MONALISA LOVE Referring Unavailable DO Omar Moe Primary Care Provider [phone] MD Naseem Gomez Attending Provider [phone] Naseem Gomez Admitting Unavailable Naseem Gomez Attending Unavailable Omar Moe Primary Care Unavailable Omar Moe DO Primary Care Provider Zenaida Interiano NP Unavailable LISSET DOMINGO Attending [...] days 14 capsule 11/26/2024 12/03/2024 Active Vit w/Bn-Nhmhwovdv-KT (PNV PO) (4 sources) Vit w/Dm-Gjnorysvs-B A (PNV PO) Take by mouth Active [...] Test Name Value Interpretation Reference Range Facility [facility] PREG QUANT HCGon 025 HCG QUANTITATIVE 93 mIU/mL [facility] Comment on above: 5-50 0.2-1 WEEK 50-500 1-2 WEEKS 100-5,000 2-3 WEEKS 500-10,000 3-4 WEEKS 1,000-50,000 4-5 WEEKS 10,000-100,000 5-6 WEEKS 15,000-200,000 6-8 WEEKS 10,000-100,000 2-3 MONTHS [facility] ALL CBC WITH AUTO DIFFon BASOPHILS ABSOLUTE AUTO 0 N [facility] Basophils/100 WBC (Bld) 0.3 % 0.2 - 2.0 % [facility] Eosinophils/100 WBC (Bld) 2.6 % 0.9 - 7.0 % [facility] Erythrocyte distribution width (RBC) [Ratio] 12.2 % 11.0 - 15.0 % [facility] Hematocrit (Bld) [Volume fraction] 42 % 36.0 - 48.0 % [facility] Hemoglobin (Bld) [Mass/Vol] 14 g/dL 12.0 - 16.0 g/dL [facility] IMMATURE GRANULOCYTES ABS AUTO 0.01 [facility] Immature granulocytes/100 WBC (Bld) 0.1 % 0.0 - 0.5 % [facility] Interpretation and review of laboratory results Abnormal [facility] LYMPHOCYTES ABSOLUTE AUTO 3.1 [facility] Lymphocytes/100 WBC (Bld) 45.4 % 20 .5 - 60.0 % [facility] MCH (RBC) [Entitic mass] 29.8 pg 26. 7 - 34.0 pg [facility] MCHC (RBC) [Mass/Vol] 33.3 g/dL 29.9 - 35.2 g/dL [facility] MCV (RBC) [Entitic vol] 89.4 fL 81.0 - 99.0 fL [facility] MONOCYTES ABSOLUTE AUTO 0.5 [facility] Monocytes/100 WBC (Bld) 7.7 % 1.7 - 12.0 % [facility] NEUTROPHILS ABSOLUTE AUTO 3 [facility] Neutrophils/100 WBC (Bld) 43.9 % 43 .0 - 75.0 % [facility] Platelet mean volume (Bld) [Entitic vol] 8.4 fL Low 9.5 - 13.5 fL [facility] TBH EO # 0.2 [facility] PLT 323 [facility] RBC [...] Healthcare [place] hysterosalpingographyon 0 12-26-2023 [place] hysterosalpingography [facility] Main [place] [address] [place] [address] Fluoroscopy Report Signed Patient: Susan Boothe MR#: [id number] 3 : 1995 Acct:[id number] Age/Sex: 28 / F ADM Date: 12/26/23 Loc: XD Room: Type: [facility] Attending Dr: Naseem Gomez MD Copies to: Naseem Gomez MD-[facility] Ordering Provider: YANIV Pollard Date of Service: 12/26/23 FL/FL hysterosalpingography: ANOVULATION, IRREGULAR MENSES Hysterosalpingogram. Reason for exam: Evaluate for tubal patency. Findings: 4 images were obtained intraoperatively. Examination was performed by the STATEMENT SERVICES REPRESENTATIVE service. No radiologist was present for procedure. Normal contour of the uterus. No definite pooling of contrast is seen within the peritoneum to suggest spillage. Cumulative Air Kerma in mGy: 11.238 mGy FL/FL hysterosalpingography Impression: HSG performed by the STATEMENT SERVICES REPRESENTATIVE service. Impression dictated by: Morgan Delgado Jr., D.OMeagan12/26/2023 1:16 PM Dictation Location: [place] [address] Transcribed By: [facility] 12/26/23 1316 Dictated By: Morgan Delgado Jr, DO 12/26/23 1314 Signed By: 12/26/23 1316 Normal [facility] Hep B Surf Abon 01-25-2023 Hep B Surf Ab 500.90 mIU/mL High <10 [facility] Comment on above: Result Comment: [...] infection. Performed By: #### A HBS #### [facility] [place] [address] Supervisor: Kvng Casanova MD Hep B Surf Abon 11-20-2022 Hep B Surf Ab <3.50 Normal <10 [facility] Comment on above: Result Comment: REFERENCE RANGE: <10.0 NON-REACTIVE/NOT IMMUNE >=10.0 REACTIVE/IMMUNE Performed By: #### A HBS #### [facility] [place] [address] Supervisor: Kvng Casanova MD Hepatitis B Surface Antibody on 11-19-2022 HBV surface Ab (S) [Titer] <3.50 NINF [facility] Comment on above: REFERENCE RANGE: <10.0 NON-REACTIVE/NOT IMMUNE >=10.0 REACTIVE/IMMUNE [facility] VZ Immunityon 10-30-2022 VZ Immunity 2.64 Normal >1.09 [facility] Comment on above: Result Comment: Interpretation: IMMUNE Reference Range: <0.91 Not Immune 0.91-1.09 Equivocal >1.09 Immune Performed By: #### V ZI #### [facility] [place] [address] Supervisor: Kvng Casanova MD Vital Signs Date Time Vital Sign Value Performing Clinician Lázaro barton 06-29-2025 14:49-0400 Body mass index (BMI) [Ratio] 23.3 kg/m2 Lisset Domingo DO Work Phone: [facility] 06-29-2025 14:49-0400 Body weight 63.5 kg Lisset Domingo DO Work Phone: [facility] 06-29-2025 14:49-0400 Diastolic blood pressure 80 mm[Hg] Lisset Vashtilacho DO Work Phone: [facility] 06-29-2025 14:49-0400 Systolic blood pressure 136 mm[Hg] Lisset Domingo DO Work Phone: [facility] 11-26-2024 10:15-0500 Body mass index (BMI) [Ratio] 22.47 kg/m2 Zenaidatapan Interiano MANAGER WELLNESS Work Phone: [facility] 11-26-2024 10:15-0500 Body temperature 98.4 [degF] Zenaidatapan Villavicenciook MANAGER WELLNESS Work Phone: [facility] 11-26-2024 10:15-0500 Body weight 61.24 kg Zenaidatapan Villavicenciook MANAGER WELLNESS Work Phone: [facility] 11-26-2024 10:15-0500 Diastolic blood pressure 70 mm[Hg] Zenaidatapan Villavicenciook MANAGER WELLNESS Work Phone: [facility] 11-26-2024 10:15-0500 Heart rate 78 /min Zneaidatapan Interiano MANAGER WELLNESS Work Phone: [facility] 11-26-2024 10:15-0500 SaO2% (BldA) [Mass fraction] 99 % Zenaida Villavicenciook MANAGER WELLNESS Work Phone: [facility] 11-26-2024 10:15-0500 Systolic blood pressure 110 mm[Hg] Zenaida Interiano MANAGER WELLNESS Work Phone: [facility] Healthcare Encounters Encounter Date Encounter Type Care Provider Facility Start: 07-29-2025 End: 07-29-2025 [facility] Result Encounter Generic External Data Provider [facility] Unsolicited Start: 07-29-2025 End: 07-29-2025 [facility] Result Encounter Generic External Data Provider [facility] Unsolicited Start: 07-07-2025 End: 07-07-2025 [facility] Result Encounter Generic External Data Provider [facility] Unsolicited Start: 07-07-2025 End: 07-07-2025 [facility] Result Encounter Generic External Data Provider [facility] Unsolicited Start: 06-29-2025 End: 06-29-2025 Patient encounter status Lisset Domingo DO Work Phone: [facility] Start: 06-29-2025 End: 06-29-2025 Periodic preventive med est patient 18-39 yrs Lisset Kingstonkes DO Work Phone: [facility] Comment on above: Encounter for gyneco logical examination without abnormal finding; Screening for malignant neoplasm of cervix Start: 06-29-2025 End: 06-29-2025 ambulatory LISSET DOMINGO Not Available Start: 06-29-2025 End: 06-29-2025 Bamboo flowsheet Lisset Antonia Rinkes DO Work Phone: [facility] Start: 06-29-2025 End: 06-29-2025 Bamboo flowsheet Lisset Knight Rinkes DO Work Phone: [facility] RAMIRESGYN Start: 12-27-2024 End: 12-28-2024 Telephone encounter Lisset Domingo DO Work Phone: [facility] Start: 11-26-2024 End: 11-26-2024 Office outpatient visit 25 minutes Zenaida Interiano MANAGER WELLNESS Work Phone: [facility] Comment on above: Acute cystitis witho ut hematuria (Primary Dx) Start: 11-26-2024 End: 11-26-2024 ambulatory ZENAIDA INTERIANO Not Available Start: 09-30-2024 End: 12-07-2024 Telephone encounter Lisset Domingo DO Work Phone: [facility] Comment on above: Appointment Request (Switch from PPJ to KER ) Start: 12-26-2023 End: 12-26-2023 Admission to same day surgery center DO Omar Vicenteer Work Phone: [facility] Work Phone: Start: 12-26-2023 End: 12-26-2023 ambulatory DO Omar Moe Work Phone: [facility] Work Phone: Start: 01-24-2023 End: 01-25-2023 [facility]ulatory [facility] Start: 01-24-2023 End: 01-24-2023 Subsequent hospital visit by physician [facility] Start: 11-19-2022 End: 11-20-2022 ambulatory LILIAN Olivo [facility] Start: 11-19-2022 End: 11-19-2022 Subsequent hospital visit by physician [facility] Start: 10-28-2022 End: 10-29-2022 ambulatory EVIN STEWARD [facility] Procedures Date Procedure Procedure Detail Performing Clinician Start: 07-29-2025 TBH PREG QUANT HCG Gene manjit External Data Provider Start: 07-07-2025 ALL CBC WITH AUTO DIFF Generic External Data Provider Start: 07-07-2025 MLR HEMOGLOBIN A1C Gene manjit External Data Provider Start: 11-26-2024 URINARY TRACT INFECT ION (HTRX) Zenaida Interiano NP Work Phone: Start: 11-19-2022 Hepatitis b surf ant ibody hbsab Lilian Shell MILITARY PERSONNEL SPECIALIST - [employer] Work Phone: Plan of Treatment Date Care Activity Detail Author Start: 07-25-2026 End: 07-25-2026 Patient encounter procedure 07/25/2026 10:30 AM EDT Office Visit [facility] [address] [place] [address] Lisset Domingo, DO [address] [place] [address] [facility] Start: 07-25-2025 Influenza vaccination [facility] Vacc [facility] Start: 06-29-2025 End: 06-29-2025 Patient encounter procedure 06/29/2025 2:45 PM EDT Office Visit [facility] [address] [place] [address] Lisset Domingo, DO [address] [place] [address] Encounter for gynecological examination without abnormal finding; Screening for malignant neoplasm of cervix [facility] Comment on above: Encounter for gyneco logical examination without abnormal finding; Screening for malignant neoplasm of cervix Start: 01-05-2025 End: 01-05-2025 Patient encounter procedure 01/05/2025 10:30 AM EST Office Visit [facility] [address] [place] [address] Lisset Domingo DO [address] [place] [address] [facility] Start: 06-24-2022 Influenza vaccination Flu vaccine (# 1) [facility] Start: 2016 DTaP/Tdap/Td vaccine (1 - Tdap) DTaP/Tdap/Td vaccine (1 - Tdap) [facility] Start: 03-09-1998 COVID-19 Vaccine (#1) COVID-19 Vacci ne (#1) [facility] End: 01-24-2023 Hepatitis B Surface Antibody [facility] Work Phone: Comment on above: Once for 1 Occurrenc es starting 01/24/2023 until 01/24/2023 IGP, RFX APTIMA HPV ASCU IGP, RF X APTIMA HPV ASCU Lab Routine Screening for malignant neoplasm of cervix Ordered: 06/29/2025 [facility] Work Phone: Comment on above: Ordered: 06/29/2025 VAGINITIS (HTRX) VAGINITIS (HTRX ) Lab Routine Acute cystitis without hematuria Ordered: 11/26/2024 [facility] [employer] Work Phone: Comment on above: Ordered: 11/26/2024 Immunizations Immunization Date Immunization Notes Care Provider Fa cility 08-25-2024 influenza virus vacc ine, unspecified formulation Lisset Domingo DO Work Phone: [facility] Healthcare Payers Date Payer Category Payer Unknown [id number] 2024 Blue Cross Blue Shield [id number] 2024 Unknown [id number] 2023 Self-pay [id number] 2023 Managed Care O (unspecified) [employer] [id number] 2020 Unknown [id number] 1995 Unknown [id number] 1995 Unknown [id number] 1995 Unknown [id number] Unknown [facility] [id number] Unknown [facility] [[email or web address]] [id number] Unknown [id number] Social History Date Type Detail Facility [facility] consumption unknown [facility] Phone: Start: 1995 Sex Assigned At Not on file [facility] Phone: Start: 1995 Sex Assigned At Female F [facility] Start: 12-02-2023 Tobacco smoking stat us WYIS Never smoked tobacco [facility] Start: 12-02-2023 [...] to any clubs or organizations such as confucianism groups, unions, fraternal or athletic groups, or [...] Only a little [facility] (I/We) worried paula er (my/our) food would run out before [...] gender (finding) [facility] NEGATED: Highlighted rowStart: NINF History of tobacco use Passive smoker [facility] [...] Review Audit Reviewed by Staci Darnell MA (Suppression Crew Leader) on 06/29/25 at 1448 Medication Order Taking? Sig Documenting Provider Last Dose Status Vit w/Nj-Llvbbgxaa-FB (PNV PO) [id number] Yes Take by mouth Lisset Domingo DO [...] APTIMA HPV ASCU documented in this encounter [facility] 12-28-2024 Telephone encounter Note Can do in sick visit spot for yearly [facility] 12-28-2024 Miscellaneous Notes Can do in sick [...] certain day before? documented in this encounter [facility] 12-27-2024 Telephone encounter Note Patient has an apt on 01/05/25 to discuss fertility. The patient was scheduled as a problem visit so it is doubled and she is on her period. Where would the next available spot be for a yearly with ? I don't see anything until May unless you would want her to be se a certain day before? [facility] 11-26-2024 History of Presen t illness Narrative Images from the original note were not included. [address] , [address] [facility], [address] P: [phone] F: [phone] [facility] Historian of [facility]: patient Susan Boothe is a 29 y.o. [...] capsule; Refill: 0 documented in this encounter [facility] 10-07-2024 Telephone encounter Note Looks like pt was referred to Dr. Noguera. Did pt see that office? We do not have any openings the rest of this year. Pt can be scheduled Nov/January 2025 in Sick visit spot to discuss infertility. Do not double book appointment. If pt is wanting to be seen sooner can check with Dr. Pastor office or KRISTIE/CECEP. [facility] 10-07-2024 Miscellaneous Notes Looks like pt was referred to Dr. Noguera. Did pt see that office? We do not have any openings the rest of this year. Pt can be scheduled Nov/January 2025 in Sick visit spot to discuss infertility. Do not double book appointment. If pt is wanting to be seen sooner can check with Dr. Pastor office or KRISTIE/CECEP. 2nd Attempt: Called patient left message for patient to return our call, to get her schd for an appointment. Patient can reach our office @ [phone] Friday through 8:00 AM - 4:00 PM and Friday 8:00 AM - 12:00 PM. Also advised patient that Dr. Domingo is booking into the new year so we wouldn't be able to get her seen until 2024. 1st Attempt: Called and left msg for patient to give our office a call so I get could further information. Patient can reach our office @ [phone] Friday through 8:00 AM - 4:00 PM and Friday 8:00 AM - 12:00 PM. PT called and requested to switch to SUNITHA- was seeing PPJ for infertility, previously completed a Clomid cycle and wants to try to get on it again as soon as possible, best call back number is [phone] documented in this encounter [facility] 10-07-2024 Telephone encounter Note 2nd Attempt: Called patient left message for patient to return our call, to get her schd for an appointment. Patient can reach our office @ [phone] Friday through 8:00 AM - 4:00 PM and Friday 8:00 AM - 12:00 PM. Also advised patient that Dr. Domingo is booking into the new year so we wouldn't be able to get her seen until 2024. [facility] 10-01-2024 Telephone encounter Note 1st Attempt: Called and left msg for patient to give our office a call so I get could further information. Patient can reach our office @ [phone] Friday through 8:00 AM - 4:00 PM and Friday 8:00 AM - 12:00 PM. [facility] 09-30-2024 Telephone encounter Note PT called and requested to switch to KER- was seeing PPJ for infertility, previously completed a Clomid cycle and wants to try to get on it again as soon as possible, best call back number is [phone] [facility] Evaluation note No assessment inform ation available [facility] Work Phone: Evaluation note Diagnosis Acute cystitis without hematuria- Primary [facility] Encounter for gynecological examination without [...] and content) DATE CREATED AUTHOR 01/28/2023 [facility] DATE CREATED AUTHOR AUTHOR'S ORGANIZ ATION 06/28/2024 [facility] DATE CREATED AUTHOR AUTHOR'S ORGANIZ ATION 07/02/2025 [facility] EPIC Care Teams (unrecognized sec tion and content) Team Status: Active Member Role Status Dates Omar Moe DO Primary Care Provider Active Team Status: Inactive Member Role Status Dates Omar Moe DO Primary Care Provider Active St art: December 26, 2023 End: December 26, 2023 Naseem Gomez MD Attending Provider Active St art: December 26, 2023 End: December 26, 2023 Inventory Control Supervisor Relationship Specialty Start Date End Date Omar Moe DO [address] [place] [address] PCP - General Family Medicine 04/01/23 Inventory Control Supervisor Relationship Specialty Start Date End Date Omar Moe DO [address] [place] [address] PCP - General Family Medicine 04/01/23 Inventory Control Supervisor Relationship Specialty Start Date End Date Omar Moe DO [address] [place] [address] PCP - General Family Medicine 04/01/23 Inventory Control Supervisor Relationship Specialty Start Date End Date Omar Moe DO [address] [place] [address] PCP - General Family Medicine 04/01/23 Zenaida Interiano NP [address] [place] [address] PCP - [employer] 02/22/25 Inventory Control Supervisor Relationship Specialty Start Date End Date Omar Moe DO [address] [place] [address] PCP - General Family Medicine 04/01/23 Zenaida Interiano, MANAGER WELLNESS [address] [place] [address] PCP - [employer] 02/22/25 Inventory Control Supervisor Relationship Specialty Start Date End Date Omar Moe DO [address] [place] [address] PCP - General Family Medicine 04/01/23 Zenaida Interiano, MANAGER WELLNESS [address] [place] [address] PCP - [employer] 02/22/25 Inventory Control Supervisor Relationship Specialty Start Date End Date Omar Moe, [address] [place] [address] PCP - General Family Medicine 04/01/23 Zenaida Interiano, MANAGER WELLNESS [address] [place] [address] PCP - [employer] 02/22/25 Goals (unrecognized section and content) [...] BE BASED ON THE PRIMARY CLINICAL RECORDS. [facility] [employer] [facility]. provides no warranty or guarantee of the accuracy or completeness of information in this document.
== END 2025-08-02 12:38 | disposition home or self-care (01) ==
PROVIDERS: PCP Family Medicine; Visit Provider Obstetrics & Gynecology Reproductive Endocrinology
DX: O09.01 Supervision of pregnancy with history of infertility, first trimester (principal)
CPT/HCPCS: 36415; 84702

== ENCOUNTER 2025-08-04 13:40 | Outpatient (OUT) | payer BC, SELFPAY ==
--- OUTSIDE RECORDS SUMMARY | 2025-08-04 14:06 | XMS_ITS | CCD ---
Author Organization [facility] Care Team Providers Care Patient Safety Tech Name Role Phone Unavailable Primary Care Provider UnavailEVIN Haddad Referring Unavailable LILIAN SHELL Referring Unavailable MONALISA LOVE Referring Unavailable DO Omar Moe Primary Care Provider [phone] MD Naseem Gomez Attending Provider [phone] Naseem Gomez Admitting Unavailable Naseem Gomez Attending Unavailable Omar Moe Primary Care Unavailable Omar Moe DO Primary Care Provider [phone] Zenaida Interiano NP Unavailable [phone] LISSET DOMINGO Attending Unavailable ZENAIDA INTERIANO Attending [...] days 14 capsule 11/26/2024 12/03/2024 Active Vit w/Gf-Icpmdkwjv-DT (PNV PO) (5 sources) Vit w/Rw-Gjpupoxrh-H A (PNV PO) Take by mouth Active [...] Results Test Name Value Interpretation Reference Range [facility] PREG QUANT HCGon 025 HCG QUANTITATIVE 684 mIU/mL [facility] Comment on above: 5-50 0.2-1 WEEK 50-500 1-2 WEEKS 100-5,000 2-3 WEEKS 500-10,000 3-4 WEEKS 1,000-50,000 4-5 WEEKS 10,000-100,000 5-6 WEEKS 15,000-200,000 6-8 WEEKS 10,000-100,000 2-3 [facility] H[facility]on 025 HCG QUANTITATIVE 93 mIU/mL [facility] Comment on above: 5-50 0.2-1 WEEK 50-500 1-2 WEEKS 100-5,000 2-3 WEEKS 500-10,000 3-4 WEEKS 1,000-50,000 4-5 WEEKS 10,000-100,000 5-6 WEEKS 15,000-200,000 6-8 WEEKS 10,000-100,000 2-3 [facility] ALL CBC WITH AUTO DIFFon BASOPHILS ABSOLUTE AUTO 0 [facility] Basophils/100 WBC (Bld) 0.3 % 0.2 - 2.0 % [facility] Eosinophils/100 WBC (Bld) 2.6 % 0.9 - 7.0 % [facility] Erythrocyte distribution width (RBC) [Ratio] 12.2 % 11.0 - 15.0 % [facility] Hematocrit (Bld) [Volume fraction] 42 % 36.0 - 48.0 % [facility] Hemoglobin (Bld) [Mass/Vol] 14 g/dL 12.0 - 16.0 g/dL [facility] IMMATURE GRANULOCYTES ABS AUTO 0.01 [facility] Immature granulocytes/100 WBC (Bld) 0.1 % 0.0 - 0.5 % [facility] Interpretation and review of laboratory results Abnormal [facility] LYMPHOCYTES ABSOLUTE AUTO 3.1 [facility] Lymphocytes/100 WBC (Bld) 45.4 % 20 .5 - 60.0 % [facility] MCH (RBC) [Entitic mass] 29.8 pg 26. 7 - 34.0 pg [facility] MCHC (RBC) [Mass/Vol] 33.3 g/dL 29.9 - 35.2 g/dL [facility] MCV (RBC) [Entitic vol] 89.4 fL 81.0 - 99.0 fL [facility] MONOCYTES ABSOLUTE AUTO 0.5 [facility] Monocytes/100 WBC (Bld) 7.7 % 1.7 - 12.0 % [facility] NEUTROPHILS ABSOLUTE AUTO 3 [facility] Neutrophils/100 WBC (Bld) 43.9 % 43 .0 - 75.0 % [facility] Platelet mean volume (Bld) [Entitic vol] 8.4 fL Low 9.5 - 13.5 fL [facility] EO # 0.2 [facility] PLT 323 [facility] RBC 4.7 [facility] WBC 6.9 [facility] CLINISYNC [facility] MLR HEMOGLOBIN A1Con 2 025 Glucose [Mass/Vol] 88 mg/dL [facility] HbA1c (Bld) [Mass fraction] 4.7 % 4.5 - 6.2 % [facility] Comment on above: ADA RECOMMENDED LIMI T 4.0 - 6.0 ADA THERAPEUTIC TARGET < 7.0 ACTION SUGGESTED > 7.0 [facility] No Panel Informationon 11-27 ACINETOBACTER BAUMANII 0 NO [facility] ACINETOBACTER BAUMANII Not detected [facility] CRYSTAL ALBICANS, PARAPSILOSIS, TROPICALIS 0 [facility] CRYSTAL ALBICANS, PARAPSILOSIS, TROPICALIS Not detected [facility] CRYSTAL GLABRATA 0 [facility] CRYSTAL GLABRATA Not detected [facility] CRYSTAL KRUSEI 0 [facility]AL KRUSEI Not detected [facility] CITROBACTER FREUNDII 0 [facility] CITROBACTER FREUNDII Not detected NO [facility] ENTEROBACTER AEROGENES, CLOACAE 0 [facility] ENTEROBACTER AEROGENES, CLOACAE Not detected [facility] ENTEROCOCCUS FAECALIS, FAECIUM 0 [facility] ENTEROCOCCUS FAECALIS, FAECIUM Not detected [facility] ESCHERICHIA COLI 0 [facility] ESCHERICHIA COLI Not detected [facility] KLEBSIELLA PNEUMONIAE, OXYTOCA 0 [facility] KLEBSIELLA PNEUMONIAE, OXYTOCA Not detected [facility] [...] Healthcare [place] hysterosalpingographyon 0 12-26-2023 [place] hysterosalpingography [facility] [address] [place] [address] [place] [address] Fluoroscopy Report Signed Patient: Susan Boothe MR#: [id number] 3 : 1995 Acct:[id number] Age/Sex: 28 / F ADM Date: 12/26/23 Loc: XD Room: Type: [facility] Attending Dr: Naseem Gomez MD Copies to: Naseem Gomez MD-ELAN Ordering Provider: YANIV Pollard Date of Service: 12/26/23 FL/FL hysterosalpingography: ANOVULATION, IRREGULAR MENSES Hysterosalpingogram. Reason for exam: Evaluate for tubal patency. Findings: 4 images were obtained intraoperatively. Examination was performed by the ANIMAL SURGEON service. No radiologist was present for procedure. Normal contour of the uterus. No definite pooling of contrast is seen within the peritoneum to suggest spillage. Cumulative Air Kerma in mGy: 11.238 mGy FL/FL hysterosalpingography Impression: HSG performed by the ANIMAL SURGEON service. Impression dictated by: Morgan Delgado Jr. DMeaganOMeagan12/26/2023 1:16 PM Dictation Location: [place] [address] Transcribed By: PWS 12/26/23 1316 Dictated By: Morgan Delgado Jr, DO 12/26/23 1314 Signed By: 12/26/23 1316 Normal [facility] Hep B Surf Abon 01-25-2023 Hep B Surf Ab 500.90 mIU/mL High <10 [facility] Comment on above: Result Comment: REFERENCE [...] infection. Performed By: #### A HBS #### [facility] [address] [place] [address] White Washer: Kvng Casanova MD Hep B Surf Abon 11-20-2022 Hep B Surf Ab <3.50 Normal <10 [facility] Comment on above: Result Comment: REFERENCE RANGE: <10.0 NON-REACTIVE/NOT IMMUNE >=10.0 REACTIVE/IMMUNE Performed By: #### A HBS #### [facility] [address] [place] [address] White Washer: Kvng Casanova MD Hepatitis B Surface Antibody on 11-19-2022 HBV surface Ab (S) [Titer] <3.50 NINF [facility] Comment on above: REFERENCE RANGE: <10.0 NON-REACTIVE/NOT IMMUNE >=10.0 REACTIVE/IMMUNE [facility] VZ Immunityon 10-30-2022 VZ Immunity 2.64 Normal >1.09 [facility] Comment on above: Result Comment: Interpretation: IMMUNE Reference Range: <0.91 Not Immune 0.91-1.09 Equivocal >1.09 Immune Performed By: #### V ZI #### [facility] [address] [place] [address] White Washer: Kvng Casanova MD Vital Signs Date Time Vital Sign Value Performing Clinician Lázaro sarmiento 06-29-2025 14:49-0400 Body mass index (BMI) [Ratio] 23.3 kg/m2 Lisset Rinkes DO Work Phone: [facility] 06-29-2025 14:49-0400 Body weight 63.5 kg Lisset Rinkes DO Work Phone: [facility] 06-29-2025 14:49-0400 Diastolic blood pressure 80 mm[Hg] Lisset Rinkes DO Work Phone: [facility] 06-29-2025 14:49-0400 Systolic blood pressure 136 mm[Hg] Lisset Kingstonkes DO Work Phone: [facility] 11-26-2024 10:15-0500 Body mass index (BMI) [Ratio] 22.47 kg/m2 Zenaida Interiano TYPING SECTION CHIEF Work Phone: [facility] 11-26-2024 10:15-0500 Body temperature 98.4 [degF] Zenaida Interiano TYPING SECTION CHIEF Work Phone: [facility] 11-26-2024 10:15-0500 Body weight 61.24 kg Zenaida Interiano TYPING SECTION CHIEF Work Phone: [facility] 11-26-2024 10:15-0500 Diastolic blood pressure 70 mm[Hg] Zenaida Interiano TYPING SECTION CHIEF Work Phone: [facility] 11-26-2024 10:15-0500 Heart rate 78 /min Zenaida Interiano TYPING SECTION CHIEF Work Phone: [facility] 11-26-2024 10:15-0500 SaO2% (BldA) [Mass fraction] 99 % Zenaida Interiano TYPING SECTION CHIEF Work Phone: [facility] 11-26-2024 10:15-0500 Systolic blood pressure 110 mm[Hg] Zenaida Villavicenciook TYPING SECTION CHIEF Work Phone: [facility] Healthcare Encounters Encounter Date Encounter Type Care Provider Facility Start: 08-02-2025 End: 08-02-2025 Clinisync Result Encounter Generic External Data Provider [facility] External Department Unsolicited Start: 08-02-2025 End: 08-02-2025 Clinisync Result Encounter Generic External Data Provider [...] 06-29-2025 End: 06-29-2025 Patient encounter status Lisset Knight Rinkes DO Work Phone: [facility] Start: 06-29-2025 End: 06-29-2025 Periodic preventive med est patient 18-39 yrs Lisset Antonia Vashtikes DO Work Phone: [facility] [place] [facility] Comment on above: Encounter for gyneco logical examination without abnormal finding; Screening for malignant neoplasm of cervix Start: 06-29-2025 End: 06-29-2025 ambulatory LISSET E RINKES Not Available Start: 06-29-2025 End: 06-29-2025 Bamboo flowsheet Lisset E Rinkes DO Work Phone: [facility] Start: 06-29-2025 End: 06-29-2025 Bamboo flowsheet Lisset E Rinkes DO Work Phone: [facility] [place] [facility] Start: 12-27-2024 End: 12-28-2024 Telephone encounter Lisset Antonia Rinkes DO Work Phone: [facility] Start: 11-26-2024 End: 11-26-2024 Office outpatient visit 25 minutes Zenaida Interiano TYPING SECTION CHIEF Work Phone: [facility] Comment on above: Acute cystitis witho ut hematuria (Primary Dx) Start: 11-26-2024 End: 11-26-2024 ambulatory ZENAIDA INTERIANO Not Available Start: 09-30-2024 End: 12-07-2024 Telephone encounter Lisset Domingo DO Work Phone: [facility] Comment on above: Appointment Request (Switch from PPJ to KER ) Start: 12-26-2023 End: 12-26-2023 Admission to same day surgery center DO Omar Moe Work Phone: [facility] [place] Work Phone: Start: 12-26-2023 End: 12-26-2023 ambulatory DO Omar Moe Work Phone: [facility] Work Phone: Start: 01-24-2023 End: 01-25-2023 [facility]ulatory [facility] Start: 01-24-2023 End: 01-24-2023 Subsequent hospital visit by physician [facility] Start: 11-19-2022 End: 11-20-2022 ambulatory [facility] Start: 11-19-2022 End: 11-19-2022 Subsequent hospital visit by physician [facility] Start: 10-28-2022 End: 10-29-2022 ambulatory EVIN STEWARD [facility] Procedures Date Procedure Procedure Detail Performing Clinician Start: 08-02-2025 [facility] PREG QUANT HCG Gene manjit External Data Provider Start: 07-29-2025 [facility] PREG QUANT HCG Gene manjit External Data Provider Start: 07-07-2025 ALL CBC WITH AUTO DIFF Generic External Data Provider Start: 07-07-2025 MLR HEMOGLOBIN A1C Gene manjit External Data Provider Start: 11-26-2024 URINARY TRACT INFECT ION (HTRX) Zenaida Interiano TYPING SECTION CHIEF Work Phone: Start: 11-19-2022 Hepatitis b surf ant ibody hbsab Lilian Shell [facility] [employer] Work Phone: Plan of Treatment Date Care Activity Detail Author Start: 07-25-2026 End: 07-25-2026 Patient encounter procedure 07/25/2026 10:30 AM EDT Office Visit [facility] [address] [place] [address] Lisset Domingo, DO [address] [place] [address] [facility] Start: 07-25-2025 Influenza vaccination Influenza Vacc ine (#1) [facility] Start: 06-29-2025 End: 06-29-2025 Patient encounter procedure 06/29/2025 2:45 PM EDT Office Visit [facility] [address] [place] [id number] Lisset Domingo, DO [address] [place] [address] Encounter for gynecological examination without abnormal finding; Screening for malignant neoplasm of [facility]ix [facility] Comment on above: Encounter for gyneco logical examination without abnormal finding; Screening for malignant neoplasm of cervix Start: 01-05-2025 End: 01-05-2025 Patient encounter procedure 01/05/2025 10:30 AM EST Office Visit [facility] [address] [place] [id number] Lisset Domingo, DO [address] [place] [address] [facility] Start: 06-24-2022 Influenza vaccination Flu vaccine (# 1) [facility] Start: 2016 DTaP/Tdap/Td vaccine (1 - Tdap) DTaP/Tdap/Td vaccine (1 - Tdap) [facility] Start: 03-09-1998 COVID-19 Vaccine (#1) COVID-19 Vacci ne (#1) [facility] End: 01-24-2023 Hepatitis B Surface Antibody [facility] Work Phone: Comment on above: Once for 1 Occurrenc es starting 01/24/2023 until 01/24/2023 IGP, RFX APTIMA HPV ASCU IGP, RF X APTIMA HPV ASCU Lab Routine Screening for malignant neoplasm of cervix Ordered: 06/29/2025 [facility] Work Phone: Comment on above: Ordered: 06/29/2025 VAGINITIS (HTRX) VAGINITIS (HTRX ) Lab Routine Acute cystitis without hematuria Ordered: 11/26/2024 [facility] Work Phone: Comment on above: Ordered: 11/26/2024 Immunizations Immunization Date Immunization Notes Care Provider Herminia ramirez 08-25-2024 influenza virus vacc ine, unspecified formulation Lisset Domingo DO Work Phone: [facility] Payers Date Payer Category Payer Unknown [id number] 2024 [place] [employer] [facility] [id number] 2024 Unknown [id number] 2023 Self-pay [id number] 2023 Managed Care O (unspecified) [employer] [id number] 2020 Unknown [id number] 1995 Unknown [id number] 1995 Unknown [id number] 1995 Unknown [id number] Unknown [facility] [id number] Unknown [facility] [id number] Unknown [id number] Social History Date Type Detail Facility Tobacco smoking stat [facility] Tobacco smoking consumption unknown [facility] Phone: Start: 1995 Sex Assigned At Not on file [facility] Phone: Start: 1995 Sex Assigned At Female F [facility] Start: 12-02-2023 Tobacco smoking stat [facility] Never smoked tobacco [facility] Start: [...] to any clubs or organizations such as amish groups, unions, fraternal or athletic groups, or [...] Domingo D.O. Obstetrics and Gynecology Patient: Susan oBothe : 1995 (29 y.o.) Yearly Wellness Exam [...] Review Audit Reviewed by Staci Darnell MA (Oil Pump Station Operator Chief) on 06/29/25 at 1448 Medication Order Taking? Sig Documenting Provider Last Dose Status Vit w/Kk-Umkalohgt-SY (PNV PO) [id number] Yes Take by mouth Lisset Doimngo DO Active Past Medical History: Diagnosis Date [...] APTIMA HPV ASCU documented in this encounter [facility] 12-28-2024 Telephone encounter Note Can do March/April in sick visit spot for yearly [facility] 12-28-2024 Miscellaneous Notes Can do March/April in [...] certain day before? documented in this encounter [facility] 12-27-2024 Telephone encounter Note Patient has an apt on 01/05/25 to discuss fertility. The patient was scheduled as a problem visit so it is doubled and she is on her period. Where would the next available spot be for a yearly with ? I don't see anything until May unless you would want her to be se a certain day before? [facility] 11-26-2024 History of Presen t illness Narrative Images from the original note were not included. [address], [address] [facility], [address] P: [phone] F: [phone] HPI Historian of HPI: patient Susan Boothe [...] capsule; Refill: 0 documented in this encounter [facility] 10-07-2024 Telephone encounter Note Looks like pt was referred to Dr. Noguera. Did pt see that office? We do not have any openings the rest of this year. Pt can be scheduled Nov/Dec/January 2025 in Sick visit spot to discuss infertility. Do not double book appointment. If pt is wanting to be seen sooner can check with Dr. Darby sinclair or KRISTIE/MARIE. [facility] 10-07-2024 Miscellaneous Notes Looks like pt was referred to Dr. Noguera. Did pt see that office? We do not have any openings the rest of this year. Pt can be scheduled Nov/Dec/January 2025 in Sick visit spot to discuss infertility. Do not double book appointment. If pt is wanting to be seen sooner can check with Dr. Darby sinclair or KRISTIE/MARIE. 2nd Attempt: Called patient left message for patient to return our call, to get her schd for an appointment. Patient can reach our office @ [phone] Friday through 8:00 AM - 4:00 PM and Friday 8:00 AM - 12:00 PM. Also advised patient that Dr. Domingo is booking into the new year so we wouldn't be able to get her seen until 2024. 1st Attempt: Called and left msg for patient to give our office a call so I get could further information. Patient can reach our office @ [phone] Friday through 8:00 AM - 4:00 PM and Friday 8:00 AM - 12:00 PM. PT called and requested to switch to KER- was seeing PPJ for infertility, previously completed a Clomid cycle and wants to try to get on it again as soon as possible, best call back number is [phone] documented in this encounter [facility] 10-07-2024 Telephone encounter Note 2nd Attempt: Called patient left message for patient to return our call, to get her schd for an appointment. Patient can reach our office @ [phone] Friday through 8:00 AM - 4:00 PM and Friday 8:00 AM - 12:00 PM. Also advised patient that Dr. Domingo is booking into the new year so we wouldn't be able to get her seen until 2024. [facility] 10-01-2024 Telephone encounter Note 1st Attempt: Called and left msg for patient to give our office a call so I get could further information. Patient can reach our office @ [phone] Friday through 8:00 AM - 4:00 PM and Girish 8:00 AM - 12:00 PM. [facility] Healthcare 09-30-2024 Telephone encounter Note PT called and requested to switch to KER- was seeing PPJ for infertility, previously completed a Clomid cycle and wants to try to get on it again as soon as possible, best call back number is [phone] [facility] Healthcare Evaluation note No assessment inform ation available [facility] Work Phone: Evaluation note Diagnosis Acute cystitis without hematuria- Primary documented in this encounter [facility] HealthcareEvaluation note* Diagnosis Encounter for gynecological examination without abnormal finding Screening for malignant neoplasm of cervix Screening for malignant neoplasm of the cervix documented in this encounter [facility] Healthcare Summary Purpose Family History No [...] CREATED AUTHOR AUTHOR'S ORGANIZ ATION 06/28/2024 [facility] DATE CREATED AUTHOR AUTHOR'S ORGANIZ ATION 07/02/2025 [facility] d[facility] Specialists EPIC Care Teams (unrecognized sec tion and content) Team Status: Active Member Role Status Dates Omar Moe DO Primary Care Provider Active Team Status: Inactive Member Role Status Dates Omar Moe DO Primary Care Provider Active St art: December 26, 2023 End: December 26, 2023 Naseem Gomez MD Attending Provider Active St art: December 26, 2023 End: December 26, 2023 Patient Safety Tech Relationship Specialty Start Date End Date Omar Moe DO [address] [place] [address] PCP - General Family Medicine 04/01/23 Patient Safety Tech Relationship Specialty Start Date End Date Omar Moe DO [address] [place] [address] PCP - General Family Medicine 04/01/23 Patient Safety Tech Relationship Specialty Start Date End Date Omar Moe, [address] [place] [address] PCP - General Family Medicine 04/01/23 Patient Safety Tech Relationship Specialty Start Date End Date Omar Moe, [address] [place] [address] PCP - General Family Medicine 04/01/23 Zenaida Interiano NP [address] [place] [address] PCP - [employer] 02/22/25 Patient Safety Tech Relationship Specialty Start Date End Date Omar Moe, [address] [place] [address] PCP - General Family Medicine 04/01/23 Zenaida Interiano, TYPING SECTION CHIEF [address] [place] [address] PCP - [employer] 02/22/25 Patient Safety Tech Relationship Specialty Start Date End Date Omar Moe, [address] [place] [address] PCP - General Family Medicine 04/01/23 Zenaida Interiano, TYPING SECTION CHIEF [address] [place] [address] PCP - [employer] 02/22/25 Patient Safety Tech Relationship Specialty Start Date End Date Omar Moe, [address] [place] [address] PCP - General Family Medicine 04/01/23 Zenaida Interiano NP [address] [place] [address] PCP - [employer] 02/22/25 Goals (unrecognized section and content) [...] BE BASED ON THE PRIMARY CLINICAL RECORDS. [employer] [facility]. provides no warranty or guarantee of the accuracy or completeness of information in this document.
== END 2025-08-04 13:41 | disposition home or self-care (01) ==
PROVIDERS: PCP Family Medicine; Visit Provider Obstetrics & Gynecology Reproductive Endocrinology
DX: O09.01 Supervision of pregnancy with history of infertility, first trimester (principal); N97.9 Female infertility, unspecified
CPT/HCPCS: 36415; 84702

== ENCOUNTER 2025-09-14 10:56 | Outpatient (OUT) | payer BC, SELFPAY ==
--- OUTSIDE RECORDS SUMMARY | 2025-08-31 08:30 | XMS_ITS | Encounter Summary ---
Author Organization [facility] Address [address] [place] [address] Care Team Providers Care Mail Handler Sorter Name Role Phone Payal Omar Andrews DO Primary Care Provider [phone] Bernice Interiano BUILDING SERVICES TECHNICIAN Unavailable [phone] Reason for Visit * ReasonCommentsInitial VisitNurse Visit Encounter Details DateTypeDepartmentCare Team (Latest Contact Info)Dazgetwxkly40/08/2025 8:30 AM EDTInitial [facility] [address] [place] [address] GA: 8w5d Social History Tobacco UseTypesPacks/DayYears UsedDateSmoking Tobacco: NeverPassive Smoke Exposure: NeverSmokeless Tobacco: NeverAlcohol UseStandard Drinks/WeekComments Never0 (1 standard drink = 0.6 oz pure alcohol)Caffeine intake: noneHumiliation, Afraid, Rape, and Kick questionnaireAnswerDate RecordedWithin the last year, have you been afraid of your partner or ex-partner?No12/01/2023Within the last year, have you been humiliated or emotionally abused in other ways by your partner or ex-partner?No12/01/2023Within the last year, have you been kicked, hit, slapped, or otherwise physically hurt by your partner or ex-partner?No 12/01/2023Within the last year, have you been raped or forced to have any kind of sexual activity by your partner or ex-partner?No12/01/2023Social Connection and Isolation PanelAnswerDate RecordedIn a typical week, how many times do you talk on the phone with family, friends, or neighbors?More than three times a week12/01/2023How often do you get together with friends or relatives?Once a week12/01/2023How often do you attend christian or mu-ism services?More than 4 times per year12/01/2023o you belong to any clubs or organizations such as christian groups, unions, fraternal or athletic groups, or school groups?Yes 12/01/2023How often do you attend meetings of the clubs or organizations you belong to?More than 4 times per year12/01/2023re you , , , , never , or living with a partner?Jtszjdl6712/01/2023 AUDIT-CAnswerDate RecordedQ1: How often do you have a drink containing alcohol? Monthly or less12/01/2023Q2: How many drinks containing alcohol do you have on a typical day when you are drinking?1 or Q3: How often do you have six or more drinks on one occasion?Never12/01/2023Overall Financial Resource Strain (CARDIA)AnswerDate RecordedHow hard is it for you to pay for the very basics like food, housing, medical care, and heating?Not very hard12/01/2023[facility] [place] of Occupational Health - Occupational Stress QuestionnaireAnswerDate RecordedDo you feel stress - tense, restless, nervous, or anxious, or unable to sleep at night because yourmind is troubled all the time - these days?Only a zqzyue2112/01/2023Exercise Vital SignAnswerDate RecordedOn average, how many days per week do you engage in moderate to strenuous exercise (like a brisk walk)?3 days12/01/2023On average, how many minutes do you engage in exercise at this level?60 min12/01/2023Hunger Vital SignAnswerDate RecordedWithin the past 12 months, you worried that your food would run out before you got the money to buy more.Never true12/01/2023Within the past 12 months, the food you bought just didn't last and you didn't have money to get more.Never true12/01/2023RAPARE - TransportationAnswerDate RecordedIn the past 12 months, has lack of transportation kept you from medical appointments or from getting medications?No 12/01/2023In the past 12 months, has lack of transportation kept you from meetings, work, or from getting things needed for daily living?No12/01/2023 Housing Stability Vital SignAnswerDate RecordedIn the last 12 months, was there a time when you were not able to pay the mortgage or rent on time?No12/01/2023In the last 12 months, how many places have you lived?In the last 12 months, was there a time when you did not have a steady place to sleep or slept in galenaelter (including now)?No12/01/2023Estimated Date of Delivery MjearepqSat33/15/2026ased on last menstrual period of 07/01/2025Sex and Gender InformationValueDate RecordedSex Assigned at BirthNot on fileLegal SexFemale 02/05/2023 6:52 PM EDTGender IuqdfqelVeydza43/15/2023 6:52 PM EDTSexual OrientationNot on filedocumented as of this encounter Progress Notes * Dwain Will LPN - 08/31/2025 8:30 AM EDT Name: Susan Boothe Date/Time of Service:08/31/2025 9:10 AM :1995 Age: 29 y.o. Chief Complaint Chief Complaint Patient presents with Initial Visit Nurse Visit Susan Boothe is a 29 y.o. at 8w5d with a working estimated date of delivery of 04/07/2026, by Last Menstrual Period who presents for an initial visit. OB History Para Term AB Living 1 0 0 0 0 0 SAB IAB Ectopic Multiple Live Births 0 0 0 0 0 # Outcome Date GA Lbr Humble/2nd Weight Sex Type Anes PTL Lv 1 Current Obstetric Comments Pap smear 12/10/22 wnl Past Medical / Surgical History Past Medical History: Diagnosis Date History of chicken pox Hormone disorder 01/01/2023 Neck mass Ovarian cyst 01/01/2023 Polycystic ovary syndrome 01/01/2023 Past Surgical History: Procedure Laterality Date LASIK 11/07/2021 LASIK 11/07/2021 NECK MASS EXCISION 2013 NECK SURGERY 2014 excision submental mass Family History Family History Problem Relation Name Age of Onset Diabetes Mother Jeannette Asthma Mother Jeannette Hypertension Father Tom Hyperlipidemia Father Tom No Known Problems Sister No Known Problems Brother Diabetes Mother's Sister One sister with Diabetes Throat cancer Mother's Brother Hickman Diabetes Mother's Brother Armaan Breast cancer Father's Sister Maris Rectal cancer Father's Sister Sharmila No Known Problems Maternal Grandmother Pancreatic cancer Maternal Grandfather No Known Problems Paternal Grandmother No Known Problems Paternal Grandfather Melanoma Neg Hx Social History reports that she has never smoked. She has never been exposed to tobacco smoke. She has never used smokeless tobacco. She reports that she does not drink alcohol and does not use drugs. Genetic Screening Genetic Screening/Teratology Counseling- Includes patient, baby's father, or anyone in either family with: Positive Intellectual disability and/or autism Yes Pt uncle with severe intellectual diability Medications (including supplements, vitamins, herbs, or OTC drugs)/illicit/recreational drugs/alcohol since last menstrual period Yes If yes, agent(s) and strength/dosage see med list Negative Patient's age 35 years or older as of estimated date of delivery No Thalassemia (Anguillan, French, Mediterranean, or background): MCV less than 80 No Neural tube defect (Meningomyelocele, Spina bifida, or Anencephaly) No Congenital heart defect No Down syndrome No Vickey-Sachs (Ashkenazi Sabianism, Cajun, Croatian [place]) No Renetta disease (Ashkenazi Sabianism) No Familial dysautonomia (Ashkenazi Sabianism) No Sickle cell disease or trait () No Hemophilia or other blood disorders No Muscular dystrophy No Cystic fibrosis No [place]'s chorea No Other inherited genetic or chromosomal disorder No Maternal metabolic disorder (eg. Type 1 diabetes, PKU) No Patient or baby's father had child with defects not listed above No Recurrent loss, or a stillbirth No MEDICATIONS: Current Outpatient Medications on File Prior to Visit Medication Sig Dispense Refill cyanocobalamin (Vitamin B-12) 100 MCG tablet Take 100 mcg by mouth Daily Vit w/Mz-Toypmxnnj-YF (PNV PO) Take by mouth progesterone 200 MG capsule Take 200 mg by mouth in the morning and 200 mg before bedtime. No current facility-administered medications on file prior to visit. Allergies No Known Allergies Patient denies nausea and vomiting. Discussed smaller meals, virginia products, OTC Vitamin B6 50mg BID and Unisom 25mg BID. Pt questioning taking progesterone at this time. Advised pt to continue to take progesterone as prescribed by reproductive facility - advised pt to speak with SUNITHA at [facility] regarding progesterone. Patient counseled on Genetic and Chromosomal testing. Pt states she is not interested d/t pt already having done Screening with [facility]. Pt states she is going to be changing Insurance soon - Advised pt to call office with insurance information when able. Last PAP: 06/29/25 neg ASSESSMENT / PLAN Labs Ordered and sent to [facility] and orders printed for pt to take with her for blood draw Appointments scheduled for 09/23/25 for [facility] with SUNITHA Will LPN 08/31/2025 9:10 AM documented in this encounter Plan of Treatment DateTypeDepartmentCare Team (Latest Contact Info)Cbfvtxozedz22/31/2025 10:00 AM EDTInitial [facility] [address] [place] [phone] Lisset Domingo, DO [address] [place] [address] 07/25/2026 10:30 AM EDTOffice Visit [facility] [place] [facility] [address] [place] [phone] Lisset Domingo, DO [address] [place] [address] NameTypePriorityAssociated DiagnosesOrder ScheduleToxicology screen, urineLab Routine Encounter for drug screening Expected: 08/31/2025 (Approximate), Expires: 08/31/2026BC auto differentialLab Routine examination or test, positive result ([facility]) Expected: 08/31/2025, Expires: 08/31/2026Urine cultureMicrobiologyRoutine examination or test, positive result ([facility]) Expected: 08/31/2025, Expires: 08/31/2026Urinalysis with microscopicLabRoutine examination or test, positive result ([facility]) Expected: 08/31/2025, Expires: 08/31/2026RPR W/RFX TO QUANT & TP ABS ([facility])Lab Routine examination or test, positive result ([facility]) Expected: 08/31/2025, Expires: 08/31/2026Rubella antibody, IgGLabRoutine examination or test, positive result ([facility]) Expected: 08/31/2025, Expires: 08/31/2026HEPATITIS B SURFACE ANTIGEN ([facility])Lab Routine examination or test, positive result ([facility]) Expected: 08/31/2025, Expires: 08/31/2026Type and screenLabRoutine examination or test, positive result ([facility]) Expected: 08/31/2025, Expires: 08/31/2026HIV-1 and HIV-2 antibodiesLabRoutine examination or test, positive result ([facility]) Expected: 08/31/2025, Expires: 08/31/2026Hepatitis C antibodyLabRoutine examination or test, positive result ([facility]) Expected: 08/31/2025, Expires: 08/31/2026documented as of this encounter Goals GoalPatient Goal TypeAssociated ProblemsRecent ProgressPatient-Stated?Author Reminders Care PlanOB RemindersNoDwain iWll, SUZANNENdocumented as of this encounter Visit Diagnoses Diagnosis examination or test, positive result ([facility]) examination or test, positive result Encounter for drug screening documented in this encounter Additional Health Concerns Active ProblemsNoted DateDiagnosed DateOB Hjnvkxzsa08/08/2025 documented as of this encounter Care Teams Team MemberRelationshipSpecialtyStart DateEnd Date Omar Moe, [address] [place] [address] PCP - GeneralFamily Medicine04/01/23 Bernice Interiano NP [address] [facility] [address] [place] [address] PCP - Leonore Commercial02/22/25documented as of this encounter
--- OUTSIDE RECORDS SUMMARY | 2025-09-14 10:59 | XMS_ITS | Clinical Summary ---
Author Organization [facility] Address [address] [place] [address], [address] [place] [address] Care Team Providers Care Microstrategy Developer Name Role Phone Unavailable Primary Care Provider Unavailabl e Social History Tobacco UseTypesPacks/DayYears UsedDateSmoking Tobacco: Never Assessed CommentsUnknownSex and Gender InformationValueDate RecordedSex Assigned at Not on fileLegal OwoOuyxgg86/27/2020 12:47 PM EDTGender IdentityNot on file Sexual OrientationNot on file Plan of Treatment Health MaintenanceDue DateLast DoneCommentsDTaP/Tdap/Td vaccine (1 - Tdap) 2016Flu vaccine (#1)5COVID-19 Vaccine (2023- season) 2025Polio vaccineAged OutNo longer eligible based on patient's age to complete this topic
--- OUTSIDE RECORDS SUMMARY | 2025-09-14 11:00 | XMS_ITS | Encounter Summary ---
Author Organization [facility] Address [address] [place] [address] Care Team Providers Care Restorative Coordinator Name Role Phone Omar Moe DO Primary Care Provider [phone] Bernice Interiano CASH APPLICATIONS REPRESENTATIVE Unavailable [phone] Encounter Details DateTypeDepartmentCare Team (Latest Contact Info)Zzpzyvnwxtf67/08/2025Travel Social History Tobacco UseTypesPacks/DayYears UsedDateSmoking Tobacco: NeverPassive [...] relatives?Once a week12/01/2023How often do you attend sabianism or protestant services?More than 4 times per year12/01/2023o you belong to any clubs or organizations such as sabianism groups, unions, fraternal or athletic groups, or school groups?Yes 12/01/2023How often do you attend meetings of the clubs or organizations you belong to?More than 4 times per year12/01/2023re you , , , , never , or living with a partner?Rfyzldr5312/01/2023 AUDIT-CAnswerDate RecordedQ1: How often do you have [...] food, housing, medical care, and heating?Not very hard12/01/2023Fin[facility] [place] of Occupational Health - Occupational Stress QuestionnaireAnswerDate RecordedDo you feel stress - tense, restless, nervous, or anxious, or unable to sleep at night because yourmind is troubled all the time - these days?Only a cvwdgu9712/01/2023Exercise Vital SignAnswerDate RecordedOn average, how many days [...] steady place to sleep or slept in ashelter (including now)?No12/01/2023Estimated Date of Delivery DaeaxzebIeb56/15/2026Based on last menstrual period of 07/01/2025Sex and Gender InformationValueDate RecordedSex Assigned at BirthNot on fileLegal SexFemale 02/05/2023 6:52 PM EDTGender LeccnkswCvkbog44/15/2023 6:52 PM EDTSexual OrientationNot on filedocumented as of this encounter Plan of Treatment DateTypeDepartmentCare Team (Latest Contact Info)Wgnylbjnhzl84/31/2025 10:00 AM EDTInitial [facility] [place] [facility] [address] [place] [phone] Lisset Domingo, DO [address] [place] [address] 07/25/2026 10:30 AM EDTOffice Visit [facility] [address] [place] [phone] Lisset Domingo, DO [address] [place], [place] [id number] documented as of this encounter Goals GoalPatient Goal TypeAssociated ProblemsRecent ProgressPatient-Stated?Author Reminders Care PlanOB RemindersDwain Pollack LPNdocumented as of this encounter Visit Diagnoses Not on filedocumented in this encounter Additional Health Concerns Active ProblemsNoted DateDiagnosed DateOB Eeqspwewi74/08/2025 documented as of this encounter Care Teams Team MemberRelationshipSpecialtyStart DateEnd Date Omar Moe DO [address] [place] [address] PCP - GeneralFamily Medicine04/01/23 Bernice Interiano NP [address] [place] [address] PCP - [place]02/22/25documented as of this encounter
--- OUTSIDE RECORDS SUMMARY | 2025-09-14 11:00 | XMS_ITS | Clinical Summary ---
Author Organization [facility] Address [address] [place] [address] Care Team Providers Care Parole Officer Name Role Phone Payal Omar Andrews DO Primary Care Provider [phone] Bernice Interiano ENVIRONMENTAL SCIENCE INSTRUCTOR Unavailable [phone] Allergies No known active allergies Medications MedicationSigDispense QuantityRefillsLast FilledStart DateEnd DateStatus Vit w/Ja-Rsvwgvykq-GQ (PNV PO) Take by mouthActive progesterone 200 MG capsule Take 200 mg by mouth in the morning and 200 mg before bedtime.Active cyanocobalamin (Vitamin B-12) 100 MCG tablet Take 100 mcg by mouth DailyActive Active Problems ProblemNoted DateDiagnosed DateNeck massEstimated Date of Delivery QmgujkxqKyz36/15/2026ased on last menstrual period of 07/01/2025 Encounters DateTypeDepartmentCare XtrqGhdsnbmnmvy78/08/2025 8:30 AM EDTInitial [facility] [address] [place] [phone] [place]: [id number]/30/2025Telephone [facility] [address] [place] [phone] Dwain Will LPN 08/04/2025linisync Result Encounter [facility] External Department Unsolicited Provider, Generic External Data 08/02/2025linisync Result Encounter [facility] External Department Unsolicited Provider, Generic External Data 07/29/2025linisync Result Encounter [facility] External Department Unsolicited Provider, Generic External Data 08/14/2025Clinisync Result Encounter [facility] External Department Unsolicited Provider, Generic External Data 06/29/2025 2:45 PM EDTOffice Visit [facility] [address] [place] [phone] Lisset Domingo, Encounter for gynecological examination without abnormal finding; Screening for malignant neoplasm of ftsnhj9506/29/2025amboo flowsheet [facility] [address] [place] [phone] Lisset Domingo, 06/29/2025Travelfrom Last 3 Months Family History Medical HistoryRelationNameCommentsNo Known ProblemsBrotherHyperlipidemiaFather MarkHypertensionFatherMarkBreast cancerFather's Sister 1DianaRectal cancer Father's Sister 2EmilyPancreatic cancerMaternal GrandfatherNo Known Problems Maternal GrandmotherAsthmaMotherMaryDiabetesMotherMaryThroat cancerMother's Brother 1MaynardDiabetesMother's Brother 2TomDiabetesMother's SisterOne sister with DiabetesNo Known ProblemsPaternal GrandfatherNo Known ProblemsPaternal GrandmotherNo Known ProblemsSisterMelanomaNeg HxRelationNameStatusComments Brother1 brotherFatherMarkAliveFather's Sister 1DianaAliveFather's Sister 2Emily AliveMaternal GrandfatherDeceasedMaternal GrandmotherAliveMotherMaryAlive Mother's Brother 1MaynardAliveMother's Brother 2TomAliveMother's Cbvqyx2Afosntwz GrandfatherDeceasedPaternal GrandmotherDeceasedSister1 sister Social History Tobacco UseTypesPacks/DayYears UsedDateSmoking Tobacco: NeverPassive Smoke Exposure: NeverSmokeless Tobacco: Never Tobacco Cessation:Counseling Given: Yes Alcohol UseStandard Drinks/WeekCommentsNever0 (1 standard drink = 0.6 oz pure alcohol)Caffeine intake: noneHumiliation, Afraid, Rape, and Kick questionnaire AnswerDate RecordedWithin the last year, have you been afraid of your partner or ex-partner?No12/01/2023Within the last year, have you been humiliated or emotionally abused in other ways by your partner or ex-partner?No12/01/2023 Within the last year, have you been kicked, hit, slapped, or otherwise physically hurt by your partner or ex-partner?No12/01/2023Within the last year, have you been raped or forced to have any kind of sexual activity by your part ner or ex-partner?No12/01/2023Social Connection and Isolation PanelAnswerDate RecordedIn a typical week, how many times do you talk on the phone with family, friends, or neighbors?More than three times a week12/01/2023How often do you get together with friends or relatives?Once a week12/01/2023How often do you attend restorationism or oriental orthodox services?More than 4 times per year12/01/2023o you belong to any clubs or organizations such as restorationism groups, unions, fraternal or athletic groups, or school groups?Yes12/01/2023How often do you attend meetings of the clubs or organizations you belong to?More than 4 times per year12/01/2023 Are you , , , , never , or living with a partner?Cfuongg7112/01/2023UDIT-CAnswerDate RecordedQ1: How often do you have a drink containing alcohol?Monthly or less12/01/2023Q2: How many drinks containing alcohol do you have on a typical day when you are drinking?1 or Q3: How often do you have six or more drinks on one occasion?Never12/01/2023Overall Financial Resource Strain (CARDIA)AnswerDate RecordedHow hard is it for you to pay for the very basics like food, housing, medical care, and heating?Not very hard12/01/2023[facility] - Occupational Stress QuestionnaireAnswerDate RecordedDo you feel stress - tense, restless, nervous, or anxious, or unable to sleep at night because yourmind is troubled all the time - these days?Only a qayrzb5712/01/2023Exercise Vital SignAnswerDate Recorded On average, how many days per week do you engage in moderate to strenuous exercise (like a brisk walk)?3 days12/01/2023On average, how many minutes do you engage in exercise at this level?60 min12/01/2023Hunger Vital SignAnswerDate RecordedWithin the past 12 months, you worried that your food would run out before you got the money to buymore.Never true12/01/2023Within the past 12 months, the food you bought just didn't last and you didn't have money to get more.Never true12/01/2023RAPARE - TransportationAnswerDate RecordedIn the past 12 months, has lack of transportation kept you from medical appointments or from getting medications?No12/01/2023In the past 12 months, has lack of transportation kept you from meetings, work, or from getting things needed for daily living?No12/01/2023Housing Stability Vital SignAnswerDate RecordedIn the last 12 months, was there a time when you were not able to pay the mortgage or rent on time?No12/01/2023In the last 12 months, how many places have you lived?1 12/01/2023In the last 12 months, was there a time when you did not have a steady place to sleep or slept in [facility] (including now)?No12/01/2023 Estimated Date of GadnwkmcBurywqbvWey06/15/2026ased on last menstrual period of 07/01/2025Sex and Gender InformationValueDate RecordedSex Assigned at BirthNot on fileLegal IecCqiqvy14/15/2023 6:52 PM EDTGender JhmbuzpwHpdrzi36/15/2023 6:52 PM EDTSexual OrientationNot on file Last Filed Vital Signs Vital SignReadingTime TakenCommentsBlood Bbcufwdm423/8008 2:49 PM EDT Iiusb137711/26/2024 10:15 AM FDHCkdgneubwyx58.9 ??C (98.4 ??F)11/26/2024 10:15 AM ESTRespiratory Rate--Oxygen Fjfqtgdmes92%11/26/2024 10:15 AM ESTInhaled Oxygen Concentration--Eiphzh33.5 kg (140 lb)06/29/2025 2:49 PM IADDbvvtu328.1 cm (5' 5 )12/02/2023 9:58 AM ESTBody Mass Index23. 9:58 AM EST Plan of Treatment DateTypeDepartmentCare Team (Latest Contact Info)Tepjplhudht58/31/2025 10:00 AM EDTInitial [facility] [address] [place] [phone] Lisset Domingo, DO [address] [place] [address] 07/25/2026 10:30 AM EDTOffice Visit [facility] [address] [place] [phone] Lisset Domingo, DO [address] [place] [address] Health MaintenanceDue DateLast DoneCommentsInfluenza Vaccine (#1)07/25/2025 08/25/2024, 08/12/2023, 08/16/2022, Additional history exists Goals GoalPatient Goal TypeAssociated ProblemsRecent ProgressPatient-Stated?Author Reminders Care PlanOB RemindersDwain Pollack LPN Procedures Procedure NamePriorityDate/TimeAssociated DiagnosisCommentsTBH PREG QUANT HCG Wsamgrx5808/04/2025 1:49 PM EDT TBH PREG QUANT LDRJbhmkcw45/09/2025 12:45 PM EDT TBH PREG QUANT VIVOqirzrc71/05/2025 2:25 PM EDT ALL THYROID STIM FDHQBOBXwqgdvt90/14/2025 9:31 AM EDT ALL LIPID PROFILE (FASTING)Llmfwgg3907/07/2025 9:31 AM EDT [facility] CMP (CMP) (FOR REMOTE [facility] USE)Gbegwra6007/07/2025 9:31 AM EDT MLR HEMOGLOBIN I1BFyfdjga96/14/2025 9:31 AM EDT ALL CBC WITH AUTO MGXOFicqvtm64/14/2025 9:31 AM EDT IGP, RFX APTIMA HPV SKNVZlxrvft24/06/2025 12:00 AM EDT Screening for malignant neoplasm of cervix from Last 3 Months Results * TBH PREG QUANT HCG (08/04/2025 1:49 PM EDT) Only the most recent of3 resultswithin the time period is included. ComponentValueRef RangeTest MethodAnalysis TimePerformed AtPathologist Signature HCG QUANTITATIVE1,767mIU/mLTBHComment: 5-50 ? 0.2-1 WEEK 50-500 ? 1-2 WEEKS 100-5,000 ?2-3 WEEKS 500-10,000 ? 3-4 WEEKS 1,000-50,000 ?? 4-5 WEEKS 10,000-100,000 5-6 WEEKS 15,000-200,000 6-8 WEEKS 10,000-100,000 2-3 MONTHS Specimen (Source)Anatomical Location / LateralityCollection Method / Volume Collection TimeReceived Time08/04/2025 1:49 PM EDT08/04/2025 1:50 PM EDT Narrative [facility] - 08/04/2025 2:33 PM EDT Authorizing ProviderResult TypeResult StatusGeneric External Data Provider CLINISYNCFinal ResultPerforming OrganizationAddressCity/State/ZIP CodePhone Number [facility] TB * MLR HEMOGLOBIN A1C (07/07/2025 9:31 AM EDT)ComponentValueRef RangeTest Method Analysis TimePerformed AtPathologist SignatureGLYCOHEMOGLOBIN A1C4.74.5 - 6.2 %TBHComment: ADA RECOMMENDED LIMIT 4.0 - 6.0 ADA THERAPEUTIC TARGET < 7.0 ACTION SUGGESTED > 7.0 ESTIMATED AVERAGE EJOTHTR47pk/dLTBHSpecimen (Source)Anatomical Location / LateralityCollection Method / VolumeCollection TimeReceived Time07/07/2025 9:31 AM EDT07/07/2025 9:35 AM EDT Narrative CLIN[facility]YNC - 07/07/2025 9:55 AM EDT Authorizing ProviderResult TypeResult StatusGeneric External Data Provider CLINISYNCFinal ResultPerforming OrganizationAddressCity/State/ZIP CodePhone Number CLINISYNC TB * (ABNORMAL) [facility] CMP (CMP) (FOR REMOTE [facility] USE) (07/07/2025 9:31 AM EDT) ComponentValueRef RangeTest MethodAnalysis TimePerformed AtPathologist LvsiowpmmTZYUFQ364092 - 145 mmol/LTBHPOTASSIUM4.33.5 - 5.1 mmol/LTBHCHLORIDE 93755 - 107 mmol/LTBHCARBON EUIJQCQ41.4(H)21.0 - 32.0 mmol/LTBHANION GAP6.9TBH HAJUDBB3201 - 106 mg/dLTBHBLOOD UREA NABJSRAY50.07.0 - 18.0 mg/dLTBHCREATININE 1.06(H)0.55 - 1.02 mg/dLTBHTBH EGFR-AF ESTONIAN>60>=60 mL/min/1.73m 2TBHTBH EGFR-NON AF ESTONIAN>60>=60 mL/min/1.73m 2TBHBUN CREATININE RATIO16.0TBH CALCIUM9.48.5 - 10.1 mg/dLTBHBILIRUBIN TOTAL0.70.2 - 1.0 mg/dLTBHASPARTATE AMINO ODNPHTGNBGV6491 - 37 U/LTBHALANINE HBYJNYTSCIQFPRCI0544 - 59 U/LTBH ALKALINE QJOTTIKTDIX1901 - 116 U/LTBHTOTAL PROTEIN7.66.4 - 8.2 g/dLTBHALBUMIN LEVEL4.23.4 - 5.0 g/dLTBHGLOBULIN3.4g/dLTBHALBUMIN GLOBULIN RATIO1.2TBH Specimen (Source)Anatomical Location / LateralityCollection Method / Volume Collection TimeReceived Time07/07/2025 9:31 AM EDT07/07/2025 9:35 AM EDT Narrative CLINISYNC - 07/07/2025 10:22 AM EDT Authorizing ProviderResult TypeResult StatusGeneric External Data Provider CLINISYNCFinal ResultPerforming OrganizationAddressty/State/ZIP CodePhone Number [facility] * ALL THYROID STIM HORMONE (07/07/2025 9:31 AM EDT)ComponentValueRef RangeTest MethodAnalysis TimePerformed AtPathologist SignatureTHYROID STIMULATING HORMONE2.4340.358 - 3.740 uIU/mLTBHSpecimen (Source)Anatomical Location / LateralityCollection Method / VolumeCollection TimeReceived Time07/07/2025 9:31 AM EDT07/07/2025 9:35 AM EDT Narrative CLINISYAL - 07/07/2025 10:22 AM EDT Authorizing ProviderResult TypeResult StatusGeneric External Data Provider CLINISYNCFinal ResultPerforming OrganizationAddEncompass Health Rehabilitation Hospital of Yorkty/State/ZIP CodePhone Number NAMITA TB * (ABNORMAL) ALL LIPID PROFILE (FASTING) (07/07/2025 9:31 AM EDT)ComponentValue Ref RangeTest MethodAnalysis TimePerformed AtPathologist Signature BKWSNFTMNVHLN05<=150 mg/zMGBUHCWCNUROUNW398(H)<=200 mg/dLTBHHDL DTHYFSKKNHN719 (H)40 - 60 mg/dLTBHComment: > or =60 mg/dl - LOW CARDIOVASCULAR RISK <40 mg/dl - HIGH CARDIOVASCULAR RISK LDL CHOLESTEROL GLVACCIGBQ70.0mg/dLTBHComment: <100 mg/dl OPTIMAL 100-129 mg/dl NEAR OR ABOVE OPTIMAL 130-159 mg/dl BORDERLINE HIGH 160-189 mg/dl HIGH >190 mg/dl VERY HIGH VLDL CHOLESTEROL5.2mg/dLTBHCHOL HDL RATIO1.7TBHComment: 3.3 - 4.4 ?? LOW RISK 4.4 - 7.1 ?? AVERAGE RISK 7.1 - 11.0 ??MODERATE RISK >11.0 HIGH RISK Specimen (Source)Anatomical Location / LateralityCollection Method / Volume Collection TimeReceived Time07/07/2025 9:31 AM EDT07/07/2025 9:35 AM EDT Narrative CLINISYAL - 07/07/2025 10:22 AM EDT Authorizing ProviderResult TypeResult StatusGeneric External Data Provider CLINISYNCFinal ResultPerforming OrganizationAddressCity/State/ZIP CodePhone Number [facility] * (ABNORMAL) ALL CBC WITH AUTO DIFF (07/07/2025 9:31 AM EDT)ComponentValueRef RangeTest MethodAnalysis TimePerformed AtPathologist SignatureTBH WBC6.94.0 - 11.0 10 3/uLTBHTBH RBC4.704.20 - 5.40 10 6/uLTBHTBH HGB14.012.0 - 16.0 g/dLTBH TBH HCT42.036.0 - 48.0 %TBHTBH MCV89.481.0 - 99.0 fLTBHTBH MCH29.826.7 - 34.0 pgTBHTBH MCHC33.329.9 - 35.2 g/dLTBHTBH RDW12.211.0 - 15.0 %TBHTBH MIO529704 - 450 10 3/uLTBHTBH MPV8.4(L)9.5 - 13.5 fLTBHNEUTROPHILS PERCENT AUTO43.943.0 - 75.0 %TBHLYMPHOCYTES PERCENT AUTO45.420.5 - 60.0 %TBHMONOCYTES PERCENT AUTO7.7 1.7 - 12.0 %TBHTBH EO %2.60.9 - 7.0 %TBHBASOPHILS PERCENT AUTO0.30.2 - 2.0 % TBHIMMATURE GRANULOCYTES PCT AUTO0.10.0 - 0.5 %TBHNEUTROPHILS ABSOLUTE AUTO3.0 1.4 - 6.5 10 3/uLTBHLYMPHOCYTES ABSOLUTE AUTO3.11.2 - 3.8 10 3/uLTBHMONOCYTES ABSOLUTE AUTO0.50.3 - 0.8 10 3/uLTBHTBH EO #0.20.0 - 0.7 10 3/uLTBHBASOPHILS ABSOLUTE AUTO0.00.0 - 0.1 10 3/uLTBHIMMATURE GRANULOCYTES ABS AUTO0.010.00 - 0.03 10 3/uLTBHSpecimen (Source)Anatomical Location / LateralityCollection Method / VolumeCollection TimeReceived Time07/07/2025 9:31 AM EDT07/07/2025 9:35 AM EDT Narrative CLINISYNC - 07/07/2025 9:42 AM EDT Authorizing ProviderResult TypeResult StatusGeneric External Data Provider CLINISYNCFinal ResultPerforming OrganizationAddressCity/State/ZIP CodePhone Number NAMITA TBH * IGP, RFX APTIMA HPV ASCU (06/29/2025 12:00 AM EDT)ComponentValueRef RangeTest MethodAnalysis TimePerformed AtPathologist SignatureDiagnosis:CommentLABCORP Comment:NEGATIVE FOR INTRAEPITHELIAL LESION OR MALIGNANCY.Specimen Adequacy: CommentLABCORPComment: Satisfactory for evaluation. ??Endocervical and/or squamous metaplastic cells (endocervical component) are present. Clinician Provided ICD10:CommentLABCORPComment:Z12.4Performed By:CommentLABCORP Comment:Michael Jain, Park Naturalist ([facility])Cyto Comments.LABCORPNote:Comment LABC[facility]PComment: The Pap smear is a screening test designed to aid in the detection of premalignant and malignant conditions of the uterine cervix. ??It is not a diagnostic procedure and should not be used as the sole means of detecting cervical cancer. ??Both false-positive and false-negative reports do occur. Test Methodology:CommentLABCORPComment: This liquid based ThinPrep(R) pap test was screened with the use of an image guided system. .CommentLABCORPComment: The HPV DNA reflex criteria were not met with this specimen result therefore, no HPV testing was performed. Specimen (Source)Anatomical Location / LateralityCollection Method / Volume Collection TimeReceived Time/05/2025 Narrative [facility] - 07/01/2025 1:07 PM EDT Performed at: 01 - [facility] StreetJosé LuisJohnnie [place] ??[id number] Production Intern: Sepideh Varela MD, Phone: ??[phone] Specimen Comment: [id number] Specimen Comment: No. of containers..01 ThinPrep Vial Authorizing ProviderResult TypeResult StatusKathlkailee Knight Vashtilacho DOLAB BLOOD ORDERABLESFinal ResultPerforming OrganizationAddressCity/State/ZIP CodePhone Number [facility] from Last 3 Months Additional Health Concerns Active ProblemsNoted DateDiagnosed DateOB Zzjgomyxd16/08/2025 Insurance Care Teams Team MemberRelationshipSpecialtyStart DateEnd Date Omar Moe DO [address] [place] [address] [facility] - [facility] Bernice Interiano NP [address] [place] [address] PCP - Madhavi Crum02/22/25
--- OUTSIDE RECORDS SUMMARY | 2025-09-14 11:09 | XMS_ITS | CCD ---
Author Organization [facility] Care Team Providers Care Studio Operations Manager Name Role Phone Unavailable Primary Care Provider UnavailEVIN Haddad Referring Unavailable LILIAN SHELL Referring Unavailable MONALISA LOVE Referring Unavailable DO Omar Moe Primary Care Provider MD Naseem Gomez Attending Provider Naseem Gomez Admitting Unavailable Naseem Gomez Attending Unavailable Omar Moe Primary Care Unavailable Omar Moe DO Primary Care Provider [phone] Zenaida Interiano NP Unavailable LISSET DOMINGO Attending Unavailable ZENAIDA INTERIANO Attending Unavailable Medications Current Medications MedicationDrug Class(es)DatesSig (Normalized)Sig (Original)nitrofurantoin, macrocrystals 25 mg / nitrofurantoin, monohydrate 75 mg oral capsule (2 sources)Nitrofuran AntibacterialStart: 11-26-2024 End: 13-24-7518rmmb 1 capsule by mouth oncenitrofurantoin, macrocrystal- monohydrate, (Macrobid) 100 MG capsule Indications: Acute cystitis without hematuria Take 1 capsule (100 mg) by mouth every 12 (twelve) hours for 7 days 14 capsule 11/26/2024 12/03/2024 ActivePrenatal Vit w/Mx-Ajljiowve-WB (PNV PO) (7 sources) Vit w/Fm-Cceqztdua-JA (PNV PO) Take by mouth Active progesterone 200 mg oral capsule (1 source)Progesteronetake 1 capsule by mouth in the morningprogesterone 200 MG capsule Take 200 mg by mouth in the morning and 200 mg before bedtime. Active vitamin b12 0.1 mg oral tablet (1 source)Vitamin B55akva 1 tablet by mouth once dailycyanocobalamin (Vitamin B- 12) 100 MCG tablet Take 100 mcg by mouth Daily Active Problems Problem ClassificationProblemDateDocumented DateEpisodic/Chronic Administrative/social admission (3 sources)Encounter for pre-employment examination; Translations: [Patient encounter status]Onset: 13-02-4887YazjpuanAdfdgl infertility (1 source)Female infertility associated with anovulation; Translations: [Female infertility associated with anovulation]Onset: 72-48-7516XvcijspLpfre and delivery including normal (1 source) test positive; Translations: [Encounter for test, result positive]25-39-9377RvugckifSrvon screening for suspected conditions (not mental disorders or infectious disease) (2 sources)Cancer cervix screening status; Translations: [Encounter for screening for malignant neoplasm of cervix]72-66-0893RxxjhzuuZmuxdszetiix (1 source)OB RemindersOnset: 687458-97-6542Vptbfwn tract infections (2 sources)Acute cystitis; Translations: [Acute cystitis without hematuria] 01-55-9223Onxjxlxs Results Test NameValueInterpretationReference RangeFacilityTBH PREG QUANT HCGon 02-44-8651VTO EXILTWPUMQQJ9002cST/mLNOMS HealthcareComment on above:5-50 0.2-1 WEEK 50-500 1-2 WEEKS 100-5,000 2-3 WEEKS 500-10,000 3-4 WEEKS 1,000-50,000 4-5 WEEKS 10,000-100,000 5-6 WEEKS 15,000-200,000 6-8 WEEKS 10,000-100,000 2-3 MONTHS CLINISYNCNOMS HealthcareTB PREG QUANT HCGon 88-80-3065BDN LDSOLKYYXGNN415mFR/mL NOMS HealthcareComment on above:5-50 0.2-1 WEEK 50-500 1-2 WEEKS 100-5,000 2-3 WEEKS 500-10,000 3-4 WEEKS 1,000-50,000 4-5 WEEKS 10,000-100,000 5-6 WEEKS 15,000-200,000 6-8 WEEKS 10,000-100,000 2-3 MONTHS CLINISYNCNOMS HealthcareTB PREG QUANT HCGon 25-38-2275OLZ KZCAXXSPHLVG30yBT/mL NOMS HealthcareComment on above:5-50 0.2-1 WEEK 50-500 1-2 WEEKS 100-5,000 2-3 WEEKS 500-10,000 3-4 WEEKS 1,000-50,000 4-5 WEEKS 10,000-100,000 5-6 WEEKS 15,000-200,000 6-8 WEEKS 10,000-100,000 2-3 MONTHS CLINISYNCNorth [facility] City HospitalALL CBC WITH AUTO DIFFon 94-20-9478MQXULMTTZ ABSOLUTE OMVL3CVDAMercy Hospital St. John'sBasophils/100 WBC (Bld)0.3 %0.2 - 2.0 %[facility] Eosinophils/100 WBC (Bld)2.6 %0.9 - 7.0 %[facility] HospitalErythrocyte distribution width (RBC) [Ratio]12.2 %11.0 - 15.0 %[facility] HospitalHematocrit (Bld) [Volume fraction]42 %36.0 - 48.0 %[facility] HospitalHemoglobin (Bld) [Mass/Vol]14 g/dL12.0 - 16.0 g/dLNorth Kansas City HospitalIMMATURE GRANULOCYTES ABS AUTO0.01NOMercy Hospital St. John's Immature granulocytes/100 WBC (Bld)0.1 %0.0 - 0.5 %[facility] HospitalInterpretation and review of laboratory resultsAbnormalNorth [place] City HospitalLYMPHOCYTES ABSOLUTE AUTO3.1NOMS [facility] Medical CenterLymphocytes/100 WBC (Bld)45.4 %20.5 - 60.0 %[facility] HealthcareH (RBC) [Entitic mass]29.8 pg26.7 - 34.0 pgMissouri Southern HealthcareHC (RBC) [Mass/Vol]33.3 g/dL29.9 - 35.2 g/dLMissouri Southern HealthcareV (RBC) [Entitic vol]89.4 fL 81.0 - 99.0 fLNorth Kansas City HospitalMONOCYTES ABSOLUTE AUTO0.5NOMercy Hospital St. John's Monocytes/100 WBC (Bld)7.7 %1.7 - 12.0 %[facility] HospitalNEUTROPHILS ABSOLUTE AUTO 3NOMercy Hospital St. John'sNeutrophils/100 WBC (Bld)43.9 %43.0 - 75.0 %[facility] Platelet mean volume (Bld) [Entitic vol]8.4 fLLow9.5 - 13.5 fLNOMS HealthcareTBH EO #0.2NOMS HealthcareTBH ZIO509CBBI HealthcareTBH RBC4.7NOMS HealthcareTBH WBC 6.9NOMS HealthcareCLINISYNCNOMS HealthcareMLR HEMOGLOBIN A1Con 52-55-9840Egojjkq [Mass/Vol]88 mg/dLNOMS UcschwbawoUsG5m (Bld) [Mass fraction]4.7 %4.5 - 6.2 %NOMS HealthcareComment on above:ADA RECOMMENDED LIMIT 4.0 - 6.0 ADA THERAPEUTIC TARGET < 7.0 ACTION SUGGESTED > 7.0 CLINISYNCNOMS HealthcareNo Panel Informationon 34-25-5482MGKNDTFYFNEFM BAUMANII0 NOMS HealthcareACINETOBACTER BAUMANIINot detectedNOMS HealthcareCANDIDA ALBICANS, PARAPSILOSIS, FVQIAMWZRK7KLGX HealthcareCANDIDA ALBICANS, PARAPSILOSIS, TROPICALISNot detectedNOMS HealthcareCANDIDA PHLDLOMB2ZPGT HealthcareCANDIDA GLABRATANot detectedNOMS HealthcareCANDIDA JXLAVS7SFHD HealthcareCANDIDA KRUSEINot detectedNOMS HealthcareCITROBACTER WZXRJLHK5CNCE HealthcareCITROBACTER FREUNDIINot detectedNOMS HealthcareENTEROBACTER AEROGENES, KJYJCLU8JQIY HealthcareENTEROBACTER AEROGENES, CLOACAENot detectedNOMS HealthcareENTEROCOCCUS FAECALIS, YAMPSXW1OLWK HealthcareENTEROCOCCUS FAECALIS, FAECIUMNot detectedNOMS HealthcareESCHERICHIA YVTM8NEHZ HealthcareESCHERICHIA COLINot detectedNOMS HealthcareKLEBSIELLA PNEUMONIAE, CAWQVOP3RFSL Healthcare KLEBSIELLA PNEUMONIAE, OXYTOCANot detectedNOMS HealthcareMORGANELLA MORGANII0 NOMS HealthcareMORGANELLA MORGANIINot detectedNOMS HealthcarePROTEUS MIRABILIS, DCSLFVSQ8MRBC HealthcarePROTEUS MIRABILIS, VULGARISNot detectedNOMS Healthcare PSEUDOMONAS HWXWWYLVFK5VZPE HealthcarePSEUDOMONAS AERUGINOSANot detectedNOMS HealthcareSERRATIA PAECNVITED2ODVC HealthcareSERRATIA MARCESCENSNot detectedNOMS HealthcareSTAPHYLOCOCCUS GHXYHX6HEXA HealthcareSTAPHYLOCOCCUS AUREUSNot detected NOMS HealthcareSTAPHYLOCOCCUS EPIDERMIDIS, HAEMOLYTICUS, LUGDUNENSIS, SAPROPHYTICUS (SGXKA8KRIM HealthcareSTAPHYLOCOCCUS EPIDERMIDIS, HAEMOLYTICUS, LUGDUNENSIS, SAPROPHYTICUS (URINANot detectedNOMS HealthcareSTREPTOCOCCUS AGALACTIAE (GROUP B STREP)0NOMS HealthcareSTREPTOCOCCUS AGALACTIAE (GROUP B STREP)Not detectedNOMS HealthcareSTREPTOCOCCUS PYOGENES (GROUP A STREP)0NOMS HealthcareSTREPTOCOCCUS PYOGENES (GROUP A STREP)Not detectedNOMS HealthcareNOMS HealthcareFL hysterosalpingographyon 33-90-1602EW hysterosalpingographyTRIHEALTH [facility] [address] [place] [address] [place] [address] Fluoroscopy Report Signed Patient: Susan Boothe MR#: [id number] 3 : 1995 Acct:[id number] Age/Sex: 28 / F ADM Date: 12/26/23 Loc: XD Room: Type: [facility] Attending Dr: Naseem Gomez MD Copies to: Naseem Gomez MD-NOMS Ordering Provider: YANIV Pollard Date of Service: 12/26/23 FL/FL hysterosalpingography: ANOVULATION, IRREGULAR MENSES Hysterosalpingogram. Reason for exam: Evaluate for tubal patency. Findings: 4 images were obtained intraoperatively. Examination was performed by the [employer]TENA[employer] service. No radiologist was present for procedure. Normal contour of the uterus. No definite pooling of contrast is seen within the peritoneum to suggest spillage. Cumulative Air Kerma in mGy: 11.238 mGy FL/FL hysterosalpingography Impression: HSG performed by the [employer] service. Impression dictated by: Morgan Delgado Jr., D.O.12/26/2023 1:16 PM Dictation Location: [place] [address] Transcribed By: [facility] 12/26/23 1316 Dictated By: Morgan Delgado Jr, DO 12/26/23 1314 Signed By: 12/26/23 1316[facility] Physician GroupHep B Surf Abon 18-07-1173Noo B Surf Ab500.90 mIU/mLHigh<10[facility] HospitalComment on above:Result Comment: REFERENCE RANGE: <10.0 NON-REACTIVE/NOT IMMUNE >=10.0 REACTIVE/IMMUNE The presence of Anti-HBs usually indicates recovery from acute or chronic HBV infection or acquired immunity from HBV vaccination. Positive results (quantitative levels of equal to or greater than 10.0 mIU/mL) indicate an adequate immunity from previous infection, vaccination or immune globulin adminstration. Anti-HBc would help define positivity due to Hepatitis B infection.Performed By: #### GILBERTOBS #### [facility] [address] [place] [address] [id number] Gold Marker: Tyree Ospina B Surf Abon 13-98-5070Yqs B Surf Ab<3.50 Normal<10[facility]Com[facility] on above:Result Comment: REFERENCE RANGE: <10.0 NON-REACTIVE/NOT IMMUNE >=10.0 REACTIVE/IMMUNEPerformed By: #### AHBS #### [facility] [address] [place], [place] [id number] Gold Marker: Gissell Ospinapatitis B Surface Antibodyon 32-81-7451STP surface Ab (S) [Titer]<3.50NINFBON [facility] HOSPITALComment on above: REFERENCE RANGE: <10.0 NON-REACTIVE/NOT IMMUNE >=10.0 REACTIVE/IMMUNE [facility]ON [facility] HOSPITALVZ Immunityon 11-15-4379JZ Immunity2.64Normal>1.09[facility]Comhur[facility] on above:Result Comment: Interpretation: IMMUNE Reference Range: <0.91 Not Immune 0.91-1.09 Equivocal >1.09 ImmunePerformed By: #### VZI #### [address] [address] Gold Marker: Kvng Casanova MD Vital Signs Date TimeVital SignValuePerforming TqviblgsxIpcjirgy70-03-6071 14:49-0400Body mass index (BMI) [Ratio]23.3 kg/z7Lvpcvyta RinElonics DO Work Phone: [facility] HospitalQqljwymiri92-20-3124 14:49-0400Body ieriix59.5 kg Lisset KingstonElonics DO Work Phone: noMercy Hospital St. John'sNkbnmjoyfa92-27-9917 14:49-0400Diastolic blood smrgesgn34 mm[Hg]Lisset Domingo DO Work Phone: [facility] HospitalTfoktznafv35-01-3319 14:49-0400Systolic blood dhmvedte437 mm[Hg]Lisset Domingo DO Work Phone: [facility] HospitalXcxljnzhac75-83-5698 10:15-0500Body mass index (BMI) [Ratio]22.47 kg/u9QtmiutZenaida Interiano NURSING RESIDENT Work Phone: [facility] HospitalTyktjvucjj18-15-9108 10:15-0500Body temperature 98.4 [degF]Zenaida Interiano NURSING RESIDENT Work Phone: [facility] HospitalAogbfquemy59-76-5895 10:15-0500Body uihhrr60.24 kgRamiguel ángel Interiano NURSING RESIDENT Work Phone: [facility] HospitalMgcljffhsn52-23-1809 10:15-0500Diastolic blood tzbwivrx31 mm[Hg]Zenaida Interiano NURSING RESIDENT Work Phone: [facility] HospitalRgkgwdyidm89-47-4672 10:15-0500Heart rate78 /min Zenaida Interiano NURSING RESIDENT Work Phone: [facility] HospitalUrrhgtcnhd84-57-6301 10:15-9271OcB4% (BldA) [Mass fraction]99 %Zenaida Interiano NURSING RESIDENT Work Phone: [facility] HospitalRvrtshqfci57-49-6010 10:15-0500Systolic blood orkshiqa481 mm[Hg]Zenaida Interiano NURSING RESIDENT Work Phone: [facility] Healthcare Encounters Encounter DateEncounter TypeCare ProviderFacilityStart: 08-31-2025 End: 18-42-9964Tgromrjw flow sheetNoms Sws Ob NurseNOMS [place] OBGYNComment on above:GA: 9e2dJejwe: 08-31-2025 End: 81-56-9775tgghfgxdsnDAVJCTZF RINKESNot AvailableStart: 08-04-2025 End: 75-96-9617Zhneshwse Result EncounterGeneric External Data ProviderNOMS External Department UnsolicitedStart: 08-04-2025 End: 66-80-5276Jsywisllz Result EncounterGeneric External Data ProviderNOMS External Department UnsolicitedStart: 08-02-2025 End: 42-90-0692Vsgekurwc Result EncounterGeneric External Data ProviderNOMS External Department UnsolicitedStart: 08-02-2025 End: 23-90-6588Fuxllpxtv Result EncounterGeneric External Data ProviderNOMS External Department UnsolicitedStart: 07-29-2025 End: 49-11-6620Nybkivttt Result EncounterGeneric External Data ProviderNOMS External Department UnsolicitedStart: 07-29-2025 End: 49-81-3585Eigyyhdcc Result EncounterGeneric External Data ProviderNOMS External Department UnsolicitedStart: 07-07-2025 End: 33-39-5686Wpdtfscjs Result EncounterGeneric External Data ProviderNOMS External Department UnsolicitedStart: 07-07-2025 End: 76-19-0091Ewcyuvrck Result EncounterGeneric External Data ProviderNOMS External Department UnsolicitedStart: 06-29-2025 End: 82-22-3524Kmqqxuh encounter statusKathleen E Rinkes DO Work Phone: NO HealthcareStart: 06-29-2025 End: 54-75-1670Nffgjgfg preventive med est patient 18-39 yrsKathleen E Rinkes DO Work Phone: NO [place] OBGYNComment on above:Encounter for gynecological examination without abnormal finding; Screening for malignant neoplasm of cervixStart: 06-29-2025 End: 42-11-1981stgphjiwgdNWXYPEKG E RINKESNot AvailableStart: 06-29-2025 End: 66-87-5405Jdjzda flowsheetKathleen E Rinkes DO Work Phone: NO [place] OBGYNStart: 06-29-2025 End: 62-50-6691Iizgud flowsheetKathleen E Rinkes DO Work Phone: noMS [place] OBGYNStart: 12-27-2024 End: 91-69-1014Ggesuqvcn encounterKathleen E Rinkes DO Work Phone: noMS SWS OBStart: 11-26-2024 End: 18-17-8262Mlvrkv outpatient visit 25 minutesRamiguel ángel Interiano NURSING RESIDENT Work Phone: noms SWS UCComment on above:Acute cystitis without hematuria (Primary Dx)Start: 11-26-2024 End: 13-92-5599mnuhkqmawtZQECRR L HOLBROOKNot AvailableStart: 09-30-2024 End: 02-56-2179Dbtygchrq encounterKatlc Domingo DO Work Phone: noms [facility] OBComment on above:Appointment Request (Switch from PPJ to KER )Start: 12-26-2023 End: 03-39-4974Znediwlki to same day surgery [facility] Omar Moe Work Phone: [facility] Work Phone: Start: 12-26-2023 End: 77-01-5420fmokifwpwvZG Omar Moe Work Phone: [facility] Work Phone: Start: 01-24-2023 End: 17-37-8440flcghcshqdBPGCTZ B Greg [facility] HospitalStart: 01-24-2023 End: 80-49-5035Wosflbtngh hospital visit by physicianM[facility]ORD[facility] LaboratoryStart: 11-19-2022 End: 68-57-5810irvhsinieqQKRLSRZ [facility] HospitalStart: 11-19-2022 End: 20-25-9465Wisuznxliv hospital visit by physicianMISERICORDIA [facility]OSPITAL LaboratoryStart: 10-28-2022 End: 52-87-8208xdcqsckccsTGDXWEX [facility] Procedures DateProcedureProcedure DetailPerforming ClinicianStart: 40-98-5987GFY PREG QUANT HCGGeneric External Data ProviderStart: 69-77-2385UJV PREG QUANT HCGGeneric External Data ProviderStart: 61-22-1808OJU PREG QUANT HCGGeneric External Data ProviderStart: 68-38-0456MVA CBC WITH AUTO DIFFGeneric External Data Provider Start: 38-48-2252PVS HEMOGLOBIN I2GEcvafxa External Data ProviderStart: 52-50-9127ESJRLSR TRACT INFECTION (HTRX)Zenaida Interiano NURSING RESIDENT Work Phone: Start: 84-10-2410Yhuokahmh b surf antibody hbsab Lilian Shell MUSEUM DIRECTOR - [employer] PLANT SUPERVISOR Work Phone: Plan of Treatment DateCare ActivityDetailAuthorStart: 07-25-2026 End: 97-57-9754Atehdxb encounter cvccuwpbc64/01/2026 10:30 AM EDT Office Visit ELAN RAMIRESRADHAN [address] [place] [address] Lisset Domingo, DO [address] [place], [place] [id number] ELAN [place] OBGYNStart: 09-23-2025 End: 25-02-2933ygijuehzks77/31/2025 10:00 AM EDT Initial NOMEdgardo RAMIRESRADHAN [address] [place] [address] Lisset Domingo, DO [address] [place] [address] ELAN [place] OBGYNStart: 08-31-2025 End: 78-84-8662Xfoqdoay identified in Urine by CultureUrine culture Microbiology Routine examination or test, positive result ([facility]) Expected: 08/31/2025, Expires: 08/31/2026[facility] HealthcareComment on above:Expected: 08/31/2025, Expires: 08/31/2026Start: 08-31-2025 End: 23-37-4783Kwret type and Indirect antibody screen panel - BloodType and screen Lab Routine examination or test, positive result ([facility]) Expected: 08/31/2025, Expires: 08/31/2026[facility] HealthcareComment on above: Expected: 08/31/2025, Expires: 08/31/2026Start: 08-31-2025 End: 12-03-7156TKN W Auto Differential panel - BloodCBC auto differential Lab Routine examination or test, positive result ([facility]) Expected: 08/31/2025, Expires: 08/31/2026[facility] HealthcareComment on above:Expected: 08/31/2025, Expires: 08/31/2026Start: 08-31-2025 End: 43-94-7558Qkgea of abuse panel - Urine by Screen methodToxicology screen, urine Lab Routine Encounter for drug screening Expected: 08/31/2025 (Approximate), Expires: 08/31/2026[facility] Healthcare Work Phone: comment on above:Expected: 08/31/2025 (Approximate), Expires: 08/31/2026Start: 08-31-2025 End: 14-36-9916JLNZHIICI B SURFACE ANTIGEN ([facility])HEPATITIS B SURFACE ANTIGEN ([facility]) Lab Routine examination or test, positive result ([facility]) Expected: 08/31/2025, Expires: 08/31/2026[facility] HealthcareComment on above: Expected: 08/31/2025, Expires: 08/31/2026Start: 08-31-2025 End: 39-12-4369Xkiajvfjh C virus Ab [Presence] in Serum or Plasma by Immunoassay Hepatitis C antibody Lab Routine examination or test, positive result ([facility]) Expected:08/31/2025, Expires: 08/31/2026[facility] HealthcareComment on above:Expected: 08/31/2025, Expires: 08/31/2026Start: 08-31-2025 End: 90-12-4332EHR-1/HIV-2 antigen/antibody combination immunoassayHIV-1 and HIV-2 antibodies Lab Routine examination or test, positive result ([facility]) Expected: 08/31/2025, Expires: 08/31/2026[facility] HealthcareComment on above:Expected: 08/31/2025, Expires: 08/31/2026Start: 08-31-2025 End: 39-67-2956PZN W/RFX TO QUANT & TP ABS ([facility])RPR W/RFX TO QUANT & TP ABS ([facility]) Lab Routine examination or test, positive result ([facility]) Expected: 08/31/2025, Expires: 08/31/2026[facility] HealthcareComment on above: Expected: 08/31/2025, Expires: 08/31/2026Start: 08-31-2025 End: 86-74-1231Lqpzywx antibody, IgGRubella antibody, IgG Lab Routine examination or test, positive result ([facility]) Expected: 08/31/2025, Expires: 08/31/2026[facility] HealthcareComment on above:Expected: 08/31/2025, Expires: 08/31/2026Start: 08-31-2025 End: 87-41-3864Amhcjvbdbu complete panel - UrineUrinalysis with microscopic Lab Routine examination or test, positive result ([facility]) Expected: 08/31/2025, Expires: 08/31/2026[facility] HealthcareComment on above:Expected: 08/31/2025, Expires: 08/31/2026Start: 31-99-1330Fooxeomfe vaccinationInfluenza Vaccine (#1)NOMS HealthcareStart: 06-29-2025 End: 58-99-1899Pzmseyu encounter thlyuydch39/06/2025 2:45 PM EDT Office Visit ELAN FLANNERY [address] [place] [phone] Lisset Domingo, DO [address] [place] [address] Encounter for gynecological examination without abnormal finding; Screening for malignant neoplasm of cervixNOMS [place] FLANNERY Comment on above:Encounter for gynecological examination without abnormal finding; Screening for malignant neoplasm of cervixStart: 01-05-2025 End: 76-71-4987Cakjfha encounter /12/2025 10:30 AM EST Office Visit NOMEdgardo CASTANEDA OB [address] [place] [phone] Lisset Domingo, DO [address] [place] [address] [facility] OBStart: 48-26-2270Rlvplyawi vaccinationFlu vaccine (#1)[facility]Start: 77-69-9030PBaG/Tdap/Td vaccine (1 - Tdap) DTaP/Tdap/Td vaccine (1 - Tdap)[facility]ITALStart: 88-91-4392TNUFJ-19 Vaccine (#1)COVID-19 Vaccine (#1)[facility] End: 89-73-5977Tkexpbgdb B Surface AntibodyCARILION TAZEWELL COMMUNITY HOSPITAL Work Phone: Comment on above:Once for 1 Occurrences starting 01/24/2023 until 01/24/2023IGP, RFX APTIMA HPV ASCUIGP, RFX APTIMA HPV ASCU Lab Routine Screening for malignant neoplasm of cervix Ordered: 06/29/2025[facility] [employer] Work Phone: comment on above:Ordered: 06/29/2025VAGINITIS (HTRX) VAGINITIS (HTRX) Lab Routine Acute cystitis without hematuria Ordered: 11/26/2024[employer] Work Phone: Comment on above:Ordered: 11/26/2024 Immunizations Immunization DateImmunizationNotesCare EqhthcycMxctiksf79-65-0480xlerjbvwm virus vaccine, unspecified formulationKatlc Domingo DO Work Phone: [facility] [employer] Payers DatePayer CategoryPayerPolicy [id number] Cross Blue [id number] [id number] 08-83-4953Kcizoti Care O (unspecified)[facility] Address: [facility] [id number] [place] [id number] [id number] 1.2.840.338991.1.13.239.2.7.3.044306.34217-00-4196Gryqamk [id number] 2.16.840.1.938036.3.57[id number] 2.0.1.200870.3.57[id number] 2..0.1.358961.3.579.[id number] 2.0.1.82945[id number] [id number]-[id number] [facility] Medical [id number] 2.840.1.233281.3.579.2.531 Social History DateTypeDetailFacilityTobacco smoking status NHISTobacco smoking consumption [facility] Phone: start: 63-96-6184Erw Assigned At BirthNot on fileNORTHWEST MEDICAL [facility]ENTER [facility] Phone: start: 45-98-8257Bwa Assigned At BirthOhio Valley Hospitaltart: 25-96-2626Vuvziiz smoking status NHISNever smoked tobaccoNOMS HealthcareStart: 88-15-8701Cgblols use and exposureSmokeless tobacco non-userNOMS HealthcareStart: 12-02-2023 End: 06-16-6175Fyugltszt beverage intakeLifetime non-drinker (finding)NOMS HealthcareStart: 12-01-2023 End: 55-55-3354Wgvwxyd of Social functionNOMS HealthcareStart: 12-01-2023 End: 74-08-4731Bwlelldbypl, Afraid, Rape, and Kick questionnaire [HARK]NOMS HealthcareWithin the last year, have you been afraid of your partner or ex-partner?NoNOMS HealthcareDo you belong to any clubs or organizations such as congregation groups, unions, fraternal or athletic groups, or school groups?YesNOMS HealthcareAre you now , , , , never or living with a partner?MarriedNOMS HealthcareHow often to you have a drink containing alcohol?Monthly or lessNOMS HealthcareHow many standard drinks containing alcohol do you have on a typical day?1 or 2NOMS HealthcareHow often do you have 6 or more drinks on 1 occasion?NeverNOMS HealthcareHow hard is it for you to pay for the very basics like food, housing, medical care, and heating Not very hardNOMS HealthcareDo you feel stress - tense, restless, nervous, or anxious, or unable to sleep at night because yourmind is troubled all the time - these days [OSQ]Only a littleNOMS Healthcare(I/We) worried whether (my/our) food would run out before (I/we) got money to buy more.Never trueNOMS Healthcare In the past 12 months, has lack of transportation kept you from medical appointments or from getting medications?NoNOMS HealthcareStart: 04-30-2023 Alcohol CommentCaffeine intake: occasional chocolate , sodaNOMS HealthcareStart: [id number] identityIdentifies as female gender (finding)[facility] Start: [id number] CommentCaffeine intake: noneNOMS HealthcareStart: [id number] HealthcareNEGATED: Highlighted rowStart: NINFHistory of tobacco usePassive smokerNOMS Healthcare Goals DatePatient GoalDesired Activity/StatePersonal health goal Clinical Notes 09-30-2024 to 08-31-2025 Note Date & [id number] History of Present illness Narrative* Dwain Will, LABORER [employer] - 08/31/2025 8:30 AM EDT Name: Susan [...] chicken pox Hormone disorder 01/01/2023 Neck mass Neck mass [...] or anyone in either family with: Positive Medications (including supplements, vitamins, herbs, or OTC drugs)/illicit/recreational drugs/alcohol since last menstrual period Yes If yes, agent(s) and strength/dosage see med list Any other Pt uncle with severe intellectual diability Negative Patient's age 35 years or older as of estimated date of delivery No Thalassemia (Montenegrin, Latvian, Mediterranean, or background): MCV less than 80 No Neural tube defect (Meningomyelocele, Spina bifida, or Anencephaly) No Congenital heart defect No Down syndrome No Vickey-Sachs (Ashkenazi Hoahaoism, Cajun, Telugu Kingfisher) No Renetta disease (Ashkenazi Hoahaoism) No Familial dysautonomia (Ashkenazi Hoahaoism) No Sickle cell disease or trait () No Hemophilia or other blood disorders No Muscular dystrophy No Cystic fibrosis No Clark's chorea No Intellectual disability and/or autism No Other inherited genetic or chromosomal disorder No Maternal metabolic disorder (eg. Type 1 diabetes, PKU) No Patient or baby's father had child with defects not listed above No Recurrent loss, or a stillbirth No MEDICATIONS: Current Outpatient Medications on File Prior to Visit Medication Sig Dispense Refill cyanocobalamin (Vitamin B-12) 100 MCG tablet Take 100 mcg by mouth Daily Vit w/Tf-Uwfeoalir-KR (PNV PO) Take by mouth progesterone 200 [...] advised pt to speak with SUNITHA at [facility] regarding progesterone. Patient counseled on Genetic and Chromosomal testing. Pt states she is not interested d/t pt already having done Screening with [facility]. Pt states she is going to be changing Insurance soon - Advised pt to call office with insurance information when able. Last PAP: 06/29/25 neg ASSESSMENT / PLAN Labs Ordered and sent to [facility] Appointments scheduled for 09/23/25 for NOB with SUNITHA Will LPN 08/31/2025 9:10 AM documented in this encounterNorth [place] [id number] History of Present illness Narrative* Lisset Domingo, - 06/29/2025 2:45 PM EDT Images from [...] Review Audit Reviewed by Staci Darnell MA (Health And Physical Education Teacher) on 06/29/25 at 1448 Medication Order Taking? Sig Documenting Provider Last Dose Status Vit w/Ff-Rjhydqund-MJ (PNV PO) [id number] Yes Take by mouth Lisset Domingo DO [...] RFX APTIMA HPV ASCU documented in this encounterNorth [place] City [id number] Telephone encounter Note* Telephone Encounter - Staci Darnell MA - 12/28/2024 7:36 AM EST Can do March/Idania in sick visit spot for yearly [facility] [id number] Miscellaneous Notes* Telephone Encounter - Staci Darnell MA - 12/28/2024 7:36 AM EST Can do March/Idania in sick visit spot for yearly * Telephone Encounter - Dina Valdiviachava - 12/27/2024 11:33 AM EST Patient has an apt on 01/05/25 to discuss fertility. The patient was scheduled as a problem visit soit is doubled and she is on her period. Where would the next available spot be for a yearly with ? I don't see anything until May unless you would want her to be se a certain day before? documented in this encounterNOMercy Hospital St. John'[id number] Telephone encounter Note* Telephone Encounter - Dina Avelino - 12/27/2024 11:33 AM EST Patient has an apt on 01/05/25 to discuss fertility. The patient was scheduled as a problem visit soit is doubled and she is on her period. Where would the next available spot be for a yearly with ? I don't see anything until May unless you would want her to be se a certain day before? [facility] [id number] History of Present illness Narrative* Zenaida Interiano NP - 11/26/2024 10:00 AM EST Images from the original note were not included. [address] , [address] [facility], [address] P: [phone] F: [phone] HPI Historian of [facility]: patient Susan Boothe is a 29 y.o. [...] or severe back/abd pain. Follow-up with PCP ifno improvement in 3 days. Discussed urinalysis results. Urine sent for urine culture and vaginitis panel. Will call with results when available - nitrofurantoin, macrocrystal-monohydrate, (Macrobid) 100 MG capsule; Take 1 capsule (100 mg) by mouth every 12 (twelve) hours for 7 days Dispense: 14 capsule; Refill: 0 documented in this encounterNorth Kansas City HospitalBeaymworem12-12-4299 Telephone encounter Note* Telephone Encounter - Staci Darnell MA - 10/07/2024 9:15 AM EST Looks like pt was referred to Dr. Noguera. Did pt see that office? We do not have any openings the rest of this year. Pt can be scheduled Nov/January 2025 in Sick visit spot to discuss infertility. Do not double book appointment. If pt is wanting to be seen sooner can check with Dr. Darby sinclair or KRISTIE/BJP. [facility] [id number] Miscellaneous Notes* Telephone Encounter - Staci Darnell MA - 10/07/2024 9:15 AM EST Looks like pt was referred to Dr. Noguera. Did pt see that office? We do not have any openings the rest of this year. Pt can be scheduled Nov/Dec/January 2025 in Sick visit spot to discuss infertility. Do not double book appointment. If pt is wanting to be seen sooner can check with Dr. Darby sinclair or KRISTIE/BJP. * Telephone Encounter - Felecia Baxter MA - 10/07/2024 9:03 AM EST 2nd Attempt: Called patient left message for patient to return our call, to get her schd for an appointment. Patient can reach our office @ [phone] Friday through 8:00 AM - 4:00 PM and Friday 8:00 AM - 12:00 PM. Also advised patient that Dr. Domingo is booking into the new year so we wouldn't be able to get herseen until 2024. * Telephone Encounter - Felecia Baxter MA - 10/01/2024 10:26 AM EST 1st Attempt: Called and left msg for patient to give our office a call so I get could further information. Patient can reach our office @ [phone] Friday through 8:00 AM - 4:00 PM and Friday 8:00 AM - 12:00 PM. * Telephone Encounter - Hetal Deejsus - 09/30/2024 3:40 PM EST PT called and requested to switch to KER- was seeing PPJ for infertility, previously completed a Clomid cycle and wants to try to get on it again as soon as possible, best call back number is [phone] documented in this encounterNorth [place] City HospitalCbwchetjtc67-82-3625 Telephone encounter Note* Telephone Encounter - Felecia Baxter MA - 10/07/2024 9:03 AM EST 2nd Attempt: Called patient left message for patient to return our call, to get her schd for an appointment. Patient can reach our office @ [phone] Friday through 8:00 AM - 4:00 PM and Friday 8:00 AM - 12:00 PM. Also advised patient that Dr. Domingo is booking into the new year so we wouldn't be able to get herseen until 2024. [place] HospitalNsmkhvfgko68-30-8768 Telephone encounter Note* Telephone Encounter - Felecia Baxter MA - 10/01/2024 10:26 AM EST 1st Attempt: Called and left msg for patient to give our office a call so I get could further information. Patient can reach our office @ [phone] Friday through 8:00 AM - 4:00 PM and Friday 8:00 AM - 12:00 PM. [facility] [id number] Telephone encounter Note* Telephone Encounter - Hetal Dejesus - 09/30/2024 3:40 PM EST PT called and requested to switch to KER- was seeing PPJ for infertility, previously completed a Clomid cycle and wants to try to get on it again as soon as possible, best call back number is [phone] [facility] HealthcareEvaluation noteNo assessment information availableSamaritan Hospital Ctr Work Phone: Evaluation note* Diagnosis Acute cystitis without hematuria- Primary documented in this encounter [facility] HealthcareEvaluation note* Diagnosis Encounter for gynecological examination without abnormal finding Screening for malignant neoplasm of cervix Screening for malignant neoplasm of the cervix documented in this encounter [facility] HealthcareEvaluation note* Diagnosis examination or test, positive result ([facility] examination or test, positive result Encounter for drug screening documented in this encounter [facility] Healthcare Summary Purpose Family History No Family History Records FoundNo Family History Records FoundNo Family History Records Found Advance Directives No Advanced Directives Records Found Advance Directive Response Recorded Date/ Time Advance Directives No October 8:56am Chief Complaint and Reason for Visit Chief Complaint IR Additional Source Comments INFORMATION SOURCE (unrecogn ized section and content) DATE CREATED AUTHOR 01/28/2023 [facility] DATE CREATED AUTHOR AUTHOR'S ORGANIZ ATION 06/28/2024 [facility] DATE CREATED AUTHOR AUTHOR'S ORGANIZ ATION 09/02/2025 [facility] EPIC Care Teams (unrecognized sec tion and content) Team Status: Active Member Role Status Dates Omar Moe DO Primary Care Provider Active Team Status: Inactive Member Role Status Dates Omar Moe DO Primary Care Provider Active St art: December 26, 2023 End: December 26enolsherlyn Gomez MDAttending ProviderActiveStart: December 26, 2023 End: December 26, 2023Team MemberRelationshipSpecialtyStart DateEnd Date Omar Moe DO [address] [place] [address] PCP - GeneralFamily Medicine04/01/23Team MemberRelationshipSpecialtyStart DateEnd Date Omar Moe, DO [address] [place] [address] PCP - GeneralFamily Medicine04/01/23am MemberRelationshipSpecialtyStart DateEnd Date Omar Moe, DO [address] [place] [address] PCP - GeneralFamily Medicine04/01/23Team MemberRelationshipSpecialtyStart DateEnd Date Omar Moe, DO [address] [place] [address] PCP - GeneralFamily Medicine04/01/23 Zenaida Interiano, NURSING RESIDENT [address] [place] [address] PCP - [employer]02/22/25Te MemberRelationshipSpecialtyStart DateEnd Date Omar Moe, DO [address] [place] [address] PCP - GeneralFamily Medicine04/01/23 Zenaida Interiano, NURSING RESIDENT [address] [place] [address] PCP - [employer]02/22/25 MemberRelationshipSpecialtyStart DateEnd Date Omar Moe, DO [address] [place] [address] [facility]04/01/23 Zenaida Interiano, NURSING RESIDENT [address] [place] [address] PCP [employer]02/22/25Team MemberRelationshipSpecialtyStdocena DateEnd Date Omar Moe, [address] [place] [address] [facility]04/01/23 Zenaida Interiano, NURSING RESIDENT [address] [place] [address] [facility]02/22/25Team MemberRelationshipSpecialtyBridport DateEnd Date Omar Moe, [address] [place] [address] [facility]04/01/23 Zenaida Interiano, NURSING RESIDENT [address] [place] [address] PCP [employer]02/22/25 Goals (unrecognized section and content) Goals may be documented in a n alternate section Reason for Visit (unrecogniz ed section and content) ReasonOnset DateCommentsAppointment Ivvpeju6609/30/2024Switch from PPJ to SUNITHA ReasonCommentsGynecologic ExamPt had egg retrieval May 16. Denies concerns. Denies bowel/bladder/breast concerns. LMP 05/26/25 menses irregular, usually 34 days apart.ReasonCommentsInitial VisitNurse Visit FOR RECORDS PERTAINING TO PATIENTS WHO ARE [...] BE BASED ON THE PRIMARY CLINICAL RECORDS. [facility]. provides no warranty or guarantee of the accuracy or completeness of information in this document.
[2025-09-14 11:25] LABS: Hematocrit 41.3 % (36.0-48.0); Hemoglobin 14.0 g/dL (12.0-16.0); Immature Granulocytes Abs Auto 0.07 10^3/uL (0.00-0.03); Immature Granulocytes Pct Auto 0.6 % (0.0-0.5); Lymphocytes Absolute Auto 2.7 10^3/uL (1.2-3.8); Mean Corpuscular HGB Conc 33.9 g/dL (29.9-35.2); Mean Corpuscular Hemoglobin 30.5 pg (26.7-34.0); Mean Corpuscular Volume 90.0 fL (81.0-99.0); Platelet Count 327 10^3/uL (150-450); Red Blood Count 4.59 10^6/uL (4.20-5.40); White Blood Count 12.2 10^3/uL (4.0-11.0)
[2025-09-14 11:58] LABS: Glucose Urine UA NEGATIVE (NEGATIVE)
[2025-09-14 13:43] LABS: Cast Seen? NONE SEEN #/LPF (NONE SEEN); Crystals Seen? None Seen #/HPF (None Seen)
[2025-09-15 06:08] LABS: Rubella Antibodies, IgG 2.95 index (Immune >0.99)
[2025-09-15 12:08] LABS: Rapid Plasma Reagin, Quant Non Reactive titer (NonRea<1:1)
== END 2025-09-14 10:57 | disposition home or self-care (01) ==
PROVIDERS: PCP Family Medicine; Visit Provider Obstetrics & Gynecology
DX: Z32.01 Encounter for pregnancy test, result positive (principal)
CPT/HCPCS: 36415; 80307; 81001; 85025; 86592; 86762; 86803; 86850; 86900; 86901; 87086; 87340; 87389